=== PATIENT | female | born 1990 | race Caucasian/White ===

== ENCOUNTER 2023-09-19 05:13 | Observation (INO) | payer OTHER ==
--- NOTE | 2023-09-19 05:42 | ERPHSYRPT ---
- History of Present Illness Source: patient Exam Limitations: no limitations Patient Subjective Stated Complaint: pt states that at around noon on Wednesday she started having bilateral upper abdominal pain that she describes as constant, sharp, nonradiating, rated 8/10 scale that was accompanied by nausea. she reports that she has vomited 3-4 times since that time and each time it looked like dark brown liquid. Triage Nursing Assessment: pt brought to room 9 via wheelchair after ambulating independently with slow steady gait to scale for weight acquisition and to ba throom to provide urine sample. pt is alert and oriented times three, is able to speak in complete sentences, able to move all extremities, and with resp even and unlabored. pt is noted to have very flat affect and with delay prior to answering any questions in very quiet voice. minimal eye contact made by patient and she frequently looks to her fiance who is in the room. abdominal soft, obese, nontender to palpation, nonradiating, with positive bowel sounds in all quadrants. last BM was Wednesday morning, denies blood in vomit or stool. denies cp, sob, difficulty breathing, lightheadedness, dizziness, change in appetite, difficulty with urination or bowel elimination. reports last menstrual cycle was beginning of Aug and she states that she is unsure whether she is at this time. Timing/Duration: yesterday Severity: moderate Modifying Factors: Improves With: nothing Associated Symptoms: nausea, vomiting, abdominal pain (epigastric), No fever Hx Tetanus, Diphtheria Vaccination/Date Given: Yes Hx Influenza Vaccination/Date Given: No Hx Pneumococcal Vaccination/Date Given: No Immunizations Up to Date: Yes <ZEFERINO LONG - Last Filed: 09/19/23 06:54> <PRISCILA WEISS - Last Filed: 09/19/23 08:10> - History of Present Illness Time Seen by Provider: 09/19/23 05:41 Physician History: The patient presents with abdominal pain that began on Wednesday. They describe the pain as sharp and report that it sometimes moves. The patient has previously experienced pain on their right side, but this current episode is localized in a different area. No surgeries have been performed on the patient's abdomen. Since the onset of pain, the patient has not experienced any nausea or vomiting. They have been able to eat and drink, although they mention difficulty with consuming water. The patient denies having any fevers or recent illnesses. They are not currently and have not been taking any medications for the pain. (ZEFERINO LONG) Allergies/Adverse Reactions: No Known Drug Allergies Allergy (Verified 09/19/23 05:22) Home Medications: No Reportable Medications [No Reported Medications] 09/19/23 [History] Travel Risk - International Travel Have you traveled outside of the country in past 3 weeks: No - Coronavirus Screening Are you exhibiting any of the following symptoms?: No Close contact with a COVID-19 positive Pt in past 14-21 Days: No - Vaccine Status Have you recieved a Covid-19 vaccination: No <ZEFERINO LONG - Last Filed: 09/19/23 06:54> - Review of Systems All Other Systems: Reviewed and Negative (As per HPI) <ZEFERINO LONG - Last Filed: 09/19/23 06:54> - Past Medical History Pertinent Past Medical History: No Neurological History: No Pertinent History ENT History: No Pertinent History Cardiac History: No Pertinent History Respiratory History: No Pertinent History Endocrine Medical History: No Pertinent History Musculoskeletal History: No Pertinent History GI Medical History: No Pertinent History History: No Pertinent History Psycho-Social History: No Pertinent History Female Reproductive Disorders: No Pertinent History Other Medical History: blood transfusion for heavy menstruation - Past Surgical History Past Surgical History: No Neuro Surgical History: No Pertinent History Cardiac: No Pertinent History Respiratory: No Pertinent History Gastrointestinal: No Pertinent History Genitourinary: No Pertinent History Musculoskeletal: No Pertinent History Female Surgical History: No Pertinent History - Social History Smoking Status: Never smoker Exposure to second hand smoke: No Drug Use: none Patient Lives Alone: No - Female History Hx Last Menstrual Period: 08/01/23 Hx Now: No (unsure if ) <ZEFERINO LONG - Last Filed: 09/19/23 06:54> - Physical Exam General Appearance: no apparent distress Eye Exam: eyes nml inspection Ears, Nose, Throat Exam: normal ENT inspection Neck Exam: supple, full range of motion Respiratory Exam: normal breath sounds, lungs clear, airway intact, No respiratory distress Cardiovascular Exam: normal heart sounds, tachycardia, capillary refill <2 sec, No edema Gastrointestinal/Abdomen Exam: soft, normal bowel sounds, tenderness (epigastric ), No distention, No mass, No guarding, No rebound Back Exam: normal range of motion, No CVA tenderness Extremity Exam: No normal inspection, No swelling, No tenderness Neurologic Exam: alert, oriented x 3, cooperative Skin Exam: normal color, warm, dry, No rash SpO2 Interpretation: normal SpO2: 96 O2 Delivery: Room Air <ZEFERINO LONG - Last Filed: 09/19/23 06:54> - Nursing Vital Signs Nursing Vital Signs: Initial Vital Signs Temperature 97.0 F 09/19/23 05:23 Pulse Rate 116 H 09/19/23 05:23 Respiratory Rate 18 09/19/23 05:23 Blood Pressure 145/96 09/19/23 05:23 O2 Sat by Pulse Oximetry 95 09/19/23 05:23 Pain Scale Pain Intensity 0 - Course Nursing assessment & vital signs reviewed: Yes <ZEFERINO LONG - Last Filed: 09/19/23 06:54> Ordered Tests: Active Orders 24 hr Category Date Time Status ABDOMEN AND PELVIS W/0 CONTRAS [CT] Stat Exams 09/19/23 06:39 Completed ABG [ARTERIAL BLOOD GASES] Stat Lab 09/19/23 11:30 Ordered BMP Stat Lab 09/19/23 11:30 Ordered CBC W DIFF Stat Lab 09/19/23 06:07 Completed CMP Stat Lab 09/19/23 06:07 Completed HCG, Quantitative (Inhouse) Stat Lab 09/19/23 06:07 Completed LIPASE Stat Lab 09/19/23 06:07 Completed MAGNESIUM Stat Lab 09/19/23 06:50 Completed PHOSPHOROUS Stat Lab 09/19/23 06:50 Completed POCT GLUCOSE Stat Lab 09/19/23 07:25 Completed TSH, 3RD Generation Stat Lab 09/19/23 06:30 Completed UA W/RFX UR CULTURE Stat Lab 09/19/23 05:23 Completed VENOUS BLOOD GAS Stat Lab 09/19/23 06:36 Ordered Transfer Order Routine Transfer 09/19/23 Ordered Medication Summary Generic Name Dose Route Start Last Admin Trade Name Freq PRN Reason Stop Dose Admin Potassium Chloride 20 meq in 100 mls @ 50 mls/hr 09/19/23 07:00 09/19/23 07:27 Potassium Chloride 20 Meq In Water 100ml IV 09/19/23 10:59 50 mls/hr Q2H DORIS Administration INSULIN REGULAR IN 0.9 % NACL 100 unit in 100 mls @ 8.3 mls/hr 09/19/23 06:46 09/19/23 07:30 Myxredlin 100 Unit/100 Ml Bag IV 10/19/23 06:45 0.1 unit/kg/hr .Q12H3M PRN 8.3 mls/hr HYPERGLYCEMIA Administration Protocol 0.1 UNIT/KG/HR Sodium Chloride 250 mls @ 30 mls/hr 09/19/23 07:30 09/19/23 07:31 Sodium Chloride 0.9% 250 Ml IV 09/19/23 15:49 30 mls/hr .Q8H20M DORIS Administration Sodium Chloride 1,000 mls @ 999 mls/hr 09/19/23 08:02 Sodium Chloride 0.9% 1000 Ml IV 09/19/23 09:02 .Q1H1M STA Discontinued Medications Generic Name Dose Route Start Last Admin Trade Name Freq PRN Reason Stop Dose Admin Lactated Ringer's 1,000 mls @ 999 mls/hr 09/19/23 06:43 09/19/23 07:26 Lactated Ringers IV 09/19/23 07:43 999 mls/hr .Q1H1M ONE Administration Lactated Ringer's Confirm 09/19/23 07:21 Lactated Ringers Administered 09/19/23 07:22 Dose 1,000 mls @ ud IV .STK-MED ONE Sodium Chloride Confirm 09/19/23 08:03 Sodium Chloride 0.9% 1000 Ml Administered 09/19/23 08:04 Dose 1,000 mls @ ud .ROUTE .STK-MED ONE Ondansetron HCl 4 mg 09/19/23 05:47 09/19/23 05:55 Zofran 4 Mg/Udtablet Orally Disintegrating PO 09/19/23 05:48 4 mg STAT ONE Administration Ondansetron HCl Confirm 09/19/23 05:53 Zofran 4 Mg/Udtablet Orally Disintegrating Administered 09/19/23 05:54 Dose 4 mg .ROUTE .STK-MED ONE Pantoprazole Sodium 40 mg 09/19/23 05:47 09/19/23 05:55 Protonix (Pantoprazole) 40 Mg Tablet PO 09/19/23 05:48 40 mg STAT ONE Administration Pantoprazole Sodium Confirm 09/19/23 05:53 Protonix (Pantoprazole) 40 Mg Tablet Administered 09/19/23 05:54 Dose 40 mg .ROUTE .[facility]-MED ONE Lab/Rad Data: Laboratory Result Diagrams 09/19/23 06:07 09/19/23 06:07 Laboratory Results 09/19/23 09/19/23 09/19/23 Range/Units 07:25 06:50 06:50 WBC (4.0-10.5) x10^3/uL RBC (4.1-5.4) x10^6/uL Hgb (12.0-16.0) g/dL Hct (35-47) % MCV (78-100) fL MCH (26-32) pg MCHC (32-36) g/dL RDW (11.5-14.0) % Plt Count (150-450) x10^3/uL MPV (7.5-11.0) fL Gran % (36.0-66.0) % Immature Gran % (Auto) (0.00-0.4) % Nucleat RBC Rel Count (0.00-0.1) % Eos # (Auto) (0-0.5) x10^3/uL Immature Gran # (Auto) (0.00-0.03) x10^3u/L Absolute Lymphs (auto) (1.0-4.6) x10^3/uL Absolute Monos (auto) (0.0-1.3) x10^3/uL Absolute Nucleated RBC (0.00-0.01) x10^3u/L Lymphocytes % (24.0-44.0) % Monocytes % (0.0-12.0) % Eosinophils % (0.00-5.0) % Basophils % (0.0-0.4) % Absolute Granulocytes (1.4-6.9) x10^3/uL Basophils # (0-0.4) x10^3/uL Sodium (137-145) mmol/L Potassium (3.5-5.1) mmol/L Chloride (98-107) mmol/L Carbon Dioxide (22-30) mmol/L Anion Gap (5-15) MEQ/L BUN (7-17) mg/dL Creatinine (0.52-1.04) mg/dL Estimated GFR ML/MIN Glucose (74-106) mg/dL POC Glucometer 323 H (74 to 106) mg/dL Hemoglobin A1c 10.28 H (4.5-6.0) % Calcium (8.4-10.2) mg/dL Phosphorus 3.8 (2.5-4.5) mg/dL Magnesium 1.5 L (1.6-2.3) mg/dL Total Bilirubin (0.2-1.3) mg/dL AST (14-36) U/L ALT (0-35) U/L Alkaline Phosphatase (38-126) U/L Serum Total Protein (6.3-8.2) g/dL Albumin (3.5-5.0) g/dL Lipase (23-300) U/L TSH 3rd Generation (0.47-4.68) mIU/L Beta HCG, Quant mIU/ml Urine Color (Yellow) Urine Appearance (Clear) Urine pH (4.6-8.0) Ur Specific [place] (1.005-1.030) Urine Protein (Negative) Urine Glucose (UA) (Negative) mg/dL Urine Ketones (Negative) Urine Blood (Negative) Urine Nitrite (Negative) Urine Bilirubin (Negative) Urine Urobilinogen (0.2) mg/dL Ur Leukocyte Esterase (Negative) U Hyaline Cast (Auto) (0-2) /LPF Urine Microscopic RBC (0-5) /HPF Urine Microscopic WBC (0-5) /HPF Ur Epithelial Cells (None Seen) /HPF Urine Bacteria (None Seen) /HPF Urine Culture Reflexed (NO) 09/19/23 09/19/23 09/19/23 Range/Units 06:30 06:07 06:07 WBC (4.0-10.5) x10^3/uL RBC (4.1-5.4) x10^6/uL Hgb (12.0-16.0) g/dL Hct (35-47) % MCV (78-100) fL MCH (26-32) pg MCHC (32-36) g/dL RDW (11.5-14.0) % Plt Count (150-450) x10^3/uL MPV (7.5-11.0) fL Gran % (36.0-66.0) % Immature Gran % (Auto) (0.00-0.4) % Nucleat RBC Rel Count (0.00-0.1) % Eos # (Auto) (0-0.5) x10^3/uL Immature Gran # (Auto) (0.00-0.03) x10^3u/L Absolute Lymphs (auto) (1.0-4.6) x10^3/uL Absolute Monos (auto) (0.0-1.3) x10^3/uL Absolute Nucleated RBC (0.00-0.01) x10^3u/L Lymphocytes % (24.0-44.0) % Monocytes % (0.0-12.0) % Eosinophils % (0.00-5.0) % Basophils % (0.0-0.4) % Absolute Granulocytes (1.4-6.9) x10^3/uL Basophils # (0-0.4) x10^3/uL Sodium 136 L (137-145) mmol/L Potassium 4.1 (3.5-5.1) mmol/L Chloride 102 (98-107) mmol/L Carbon Dioxide 13 L* (22-30) mmol/L Anion Gap 24.4 H (5-15) MEQ/L BUN 9 (7-17) mg/dL Creatinine 0.43 L (0.52-1.04) mg/dL Estimated GFR 134.1 ML/MIN Glucose 372 H (74-106) mg/dL POC Glucometer (74 to 106) mg/dL Hemoglobin A1c (4.5-6.0) % Calcium 8.7 (8.4-10.2) mg/dL Phosphorus (2.5-4.5) mg/dL Magnesium (1.6-2.3) mg/dL Total Bilirubin 1.80 H (0.2-1.3) mg/dL AST 43 H (14-36) U/L ALT 56 H (0-35) U/L Alkaline Phosphatase 75 (38-126) U/L Serum Total Protein 8.6 H (6.3-8.2) g/dL Albumin 4.2 (3.5-5.0) g/dL Lipase 495 H (23-300) U/L TSH 3rd Generation 0.803 (0.47-4.68) mIU/L Beta HCG, Quant < 2.39 mIU/ml Urine Color (Yellow) Urine Appearance (Clear) Urine pH (4.6-8.0) Ur Specific [place] (1.005-1.030) Urine Protein (Negative) Urine Glucose (UA) (Negative) mg/dL Urine Ketones (Negative) Urine Blood (Negative) Urine Nitrite (Negative) Urine Bilirubin (Negative) Urine Urobilinogen (0.2) mg/dL Ur Leukocyte Esterase (Negative) U Hyaline Cast (Auto) (0-2) /LPF Urine Microscopic RBC (0-5) /HPF Urine Microscopic WBC (0-5) /HPF Ur Epithelial Cells (None Seen) /HPF Urine Bacteria (None Seen) /HPF Urine Culture Reflexed (NO) 09/19/23 09/19/23 Range/Units 06:07 05:23 WBC 13.9 H (4.0-10.5) x10^3/uL RBC 5.13 (4.1-5.4) x10^6/uL Hgb 16.3 H (12.0-16.0) g/dL Hct 43.1 (35-47) % MCV 84.0 (78-100) fL MCH 31.8 (26-32) pg MCHC 37.8 H (32-36) g/dL RDW 12.7 (11.5-14.0) % Plt Count 246 (150-450) x10^3/uL MPV 11.2 H (7.5-11.0) fL Gran % 87.8 H (36.0-66.0) % Immature Gran % (Auto) 0.6 H (0.00-0.4) % Nucleat RBC Rel Count 0.0 (0.00-0.1) % Eos # (Auto) 0.01 (0-0.5) x10^3/uL Immature Gran # (Auto) 0.08 H (0.00-0.03) x10^3u/L Absolute Lymphs (auto) 0.78 L (1.0-4.6) x10^3/uL Absolute Monos (auto) 0.78 (0.0-1.3) x10^3/uL Absolute Nucleated RBC 0.00 (0.00-0.01) x10^3u/L Lymphocytes % 5.6 L (24.0-44.0) % Monocytes % 5.6 (0.0-12.0) % Eosinophils % 0.1 (0.00-5.0) % Basophils % 0.3 (0.0-0.4) % Absolute Granulocytes 12.24 H (1.4-6.9) x10^3/uL Basophils # 0.04 (0-0.4) x10^3/uL Sodium (137-145) mmol/L Potassium (3.5-5.1) mmol/L Chloride (98-107) mmol/L Carbon Dioxide (22-30) mmol/L Anion Gap (5-15) MEQ/L BUN (7-17) mg/dL Creatinine (0.52-1.04) mg/dL Estimated GFR ML/MIN Glucose (74-106) mg/dL POC Glucometer (74 to 106) mg/dL Hemoglobin A1c (4.5-6.0) % Calcium (8.4-10.2) mg/dL Phosphorus (2.5-4.5) mg/dL Magnesium (1.6-2.3) mg/dL Total Bilirubin (0.2-1.3) mg/dL AST (14-36) U/L ALT (0-35) U/L Alkaline Phosphatase (38-126) U/L Serum Total Protein (6.3-8.2) g/dL Albumin (3.5-5.0) g/dL Lipase (23-300) U/L TSH 3rd Generation (0.47-4.68) mIU/L Beta HCG, Quant mIU/ml Urine Color Yellow (Yellow) Urine Appearance Clear (Clear) Urine pH 5.0 (4.6-8.0) Ur Specific [place] >=1.030 A (1.005-1.030) Urine Protein 30 (Negative) Urine Glucose (UA) >=1000 A (Negative) mg/dL Urine Ketones >=160 A (Negative) Urine Blood Negative (Negative) Urine Nitrite Negative (Negative) Urine Bilirubin Negative (Negative) Urine Urobilinogen 0.2 (0.2) mg/dL Ur Leukocyte Esterase Negative (Negative) U Hyaline Cast (Auto) NONE SEEN (0-2) /LPF Urine Microscopic RBC 0-2 (0-5) /HPF Urine Microscopic WBC 0-2 (0-5) /HPF Ur Epithelial Cells None Seen (None Seen) /HPF Urine Bacteria Rare A (None Seen) /HPF Urine Culture Reflexed NO (NO) <ZEFERINO LONG - Last Filed: 09/19/23 06:54> - Progress Progress: improved, pain not gone completely Discussed with DrPam: Sandra Will see patient in: hospital (observation) Counseled pt/family regarding: lab results, diagnosis, rad results <PRISCILA WEISS - Last Filed: 09/19/23 08:10> - Progress Progress Note: Differential diagnosis includes: GERD, PUD, pancreatitis, , cholecystitis. Abdominal exam without peritoneal signs. No evidence of acute abdomen at this time. Well appearing. Low suspicion for acute hepatobiliary disease (includng acute cholecystitis), acute pancreatitis, PUD (including perforation), acute infectious processes (pneumonia, hepatitis, pyelonephritis), acute appendicitis, vascular catastrophe, bowel obstruction or viscus perforation. Presentation not consistent with other acute, emergent causes of abdominal pain at this time. Plan: labs, UA, HCG, nausea/pain control, serial reassessment 09/19/23 06:54 UA showed >1.03 specific gravity, >1000 glucose, >160 ketones. WBC 13.9, Na 136, K 4.1, HCO3 13, glucose 372, total bilirubin 1.8, AST/ALT 43/56, lipase 495, anion gap 24.4, HCG neg. Patient has no previous hx of diabetes that was reported however she is in DKA. LR bolus, 40meq KCl given. Insulin gtt started at 0.1u/kg. 09/19/23 07:08 A1c 10.28, Mg 1.5. Will order CT abd/pelvis to evaluate for choledocolithiasis due to elevated bilirubin, LFTs and lipase since US not available. Transfer care to Dr. Weiss at 0700. (ZEFERINO LONG) 09/19/23 08:08 Patient is checked out to me at shift change from Dr. Long with pending CT abdomen pelvis. Patient presented with abdominal pain nausea vomiting. She is given symptomatic treatment along with fluids. During my evaluation she is feeling much better but still have tenderness in the epigastric area. No right upper quadrant tenderness. She is on insulin drip. I have given another bolus of fluid. CT abdomen pelvis showed acute pancreatitis with significant edema of head and body of pancreas but no CBD dilatation/stones are any gallstones. Do not know the exact cause of her pancreatitis. I have discussed the results of CT and lab work with patient and plan of admission which she agrees. I have discussed with Dr. Blanchard hospitalist on-call, reviewed history, heparin patient is accepted for admission to ICU. (PRISCILA WEISS) <ZEFERINO LONG - Last Filed: 09/19/23 06:54> - Departure Departure Disposition: Observation Critical Care Time: No <PRISCILA WEISS - Last Filed: 09/19/23 08:10> - Departure Clinical Impression: DKA (diabetic ketoacidosis), Acute pancreatitis Condition: Stable Referrals: DOCTOR,NO FAMILY [Primary Care Provider] - Follow up/PCP as directed
[2023-09-19] MEDS ORDERED: Protonix 40MG Tablet PO ONE (05:47)
[2023-09-19] MEDS ORDERED: ZOFRAN ODT 4 MG PO ONE (05:47)
[2023-09-19 05:48] LABS: Appearance Clear (Clear); Bacteria Rare /HPF (None Seen); Bilirubin Negative (Negative); Blood Negative (Negative); Epithelial Cells None Seen /HPF (None Seen); Glucose, Urine >=1000 mg/dL (Negative); Hyaline Casts NONE SEEN /LPF (0-2); Ketones >=160 (Negative); Leukocyte Esterase Negative (Negative); Nitrite Negative (Negative); Protein,Urine Dip 30 (Negative); RBC 0-2 /HPF (0-5); Specific Gravity >=1.030 (1.005-1.030); Urobilinogen 0.2 mg/dL (0.2); WBC 0-2 /HPF (0-5)
[2023-09-19 05:49] LABS: ADD URINE CULTURE? NO (NO)
[2023-09-19] MEDS ORDERED: ZOFRAN ODT 4 MG ONE (05:53)
[2023-09-19] MEDS ORDERED: Protonix 40MG Tablet ONE (05:53)
[2023-09-19 06:28] LABS: Absolute Neutrophil Ct (ANC) 12.24 x10^3/uL (1.4-6.9); BASOPHIL % 0.3 % (0.0-0.4); Basophil (Absolute #) 0.04 x10^3/uL (0-0.4); Eosinophil % 0.1 % (0.00-5.0); Eosinophil (Absolute #) 0.01 x10^3/uL (0-0.5); Hematocrit 43.1 % (35-47); Hemoglobin 16.3 g/dL (12.0-16.0); IMMATURE GRAN # 0.08 x10^3u/L (0.00-0.03); IMMATURE GRAN % 0.6 % (0.00-0.4); Lymphocyte (Absolute #) 0.78 x10^3/uL (1.0-4.6); Lymphocytes % 5.6 % (24.0-44.0); Mean Corpuscular Hemoglobin 31.8 pg (26-32); Mean Corpuscular Hgb Concent. 37.8 g/dL (32-36); Mean Platelet Volume 11.2 fL (7.5-11.0); Monocyte (Absolute #) 0.78 x10^3/uL (0.0-1.3); Monocytes % 5.6 % (0.0-12.0); Neutrophil % 87.8 % (36.0-66.0); Platelet Count 246 x10^3/uL (150-450); Red Blood Count 5.13 x10^6/uL (4.1-5.4); Red Cell Distribution Width 12.7 % (11.5-14.0); White Blood Count 13.9 x10^3/uL (4.0-10.5)
[2023-09-19 06:32] LABS: ALBUMIN 4.2 g/dL (3.5-5.0); ANION GAP 24.4 MEQ/L (5-15); BILIRUBIN,TOTAL 1.8 mg/dL (0.2-1.3); Calcium 8.7 mg/dL (8.4-10.2); Creatinine 1 0.43 mg/dL (0.52-1.04); EST GLOMERULAR FILTRATION RATE 134.1 ML/MIN; Potassium 4.1 mmol/L (3.5-5.1); Total Protein 8.6 g/dL (6.3-8.2)
[2023-09-19] MEDS ORDERED: Lactated Ringers 1,000 ML IV ONE ×2 (06:43→07:21)
[2023-09-19 06:57] LABS: MAGNESIUM 1.5 mg/dL (1.6-2.3); PHOSPHOROUS 3.8 mg/dL (2.5-4.5)
[2023-09-19] MEDS: POTASSIUM CHLORIDE 20 mEq IN WATER 100ML 20 MEQ/100 ML BAG IV SCH ×2 (07:27→09:32)
[2023-09-19] MEDS ORDERED: Sodium Chloride 0.9% 250 ML 250 ML IV SCH (07:30)
[2023-09-19] MEDS: MYXREDLIN 100 UNIT/100 ML BAG 100 UNIT/100 ML PLAST..BAG IV PRN ×2 (07:30→17:26)
--- NOTE | 2023-09-19 07:44 | XRAY ---
CLINICAL HISTORY:abd pain COMPARISON:None TECHNIQUE:Multislice axial CT of abdomen and pelvis was performed with sagittal and coronal reconstruction without IV contrast. FINDINGS: The visualized lung: No significant abnormality. Hepatomegaly 18 cm with moderate fatty liver density. No focal lesion. Gallbladder fossa unremarkable. There is no intrahepatic or extrahepatic bile duct dilation. Pancreas head and proximal body segment significant swelling with surrounding fat stranding/edema is noted. Pancreas tail is preserved. No encapsulated fluid collection is noted. No associating obvious pancreatic duct dilation or biliary dilation. Spleen normal in size. No focal lesion.Small spleule is seen. Adrenal glands are unremarkable. The kidneys normal in size with no masses, stone or hydronephrosis. No evidence of abdominal aorta aneurysm. Intestinal loops without evidence of obstruction. No intra-abdominal free fluid or mass. Bladder unremarkable. Incidental T12 mild anterior wedging possibly chronic is noted. Please correlate clinically. IMPRESSION: 1. Evidence of pancreatitis with significant edema and swelling as described. 2. T12 anterior wedging. 3. Hepatic steatosis and hepatomegaly. [facility] was called at [phone] at 06:36 AM SECURITY SYSTEM ENGINEER, 09/19/[address] Mae was informed about Significant Findings. Electronically Signed by: Oralia Izquierdo MD. (09/19/2023 06:41:57 SEC[employer]ITY SYSTEM ENGINEER)
[2023-09-19] MEDS ORDERED: Sodium Chloride 0.9% 1000 ML 1,000 ML IV STA (08:02)
[2023-09-19] MEDS ORDERED: Sodium Chloride 0.9% 1000 ML 1,000 ML ONE (08:03)
[2023-09-19 08:08] LABS: A-aADO2 38; ABG HEMOGLOBIN 15.3; ABG POTASSIUM 3.9 (3.5-5.1); ARTERIAL BLD GAS O2 SATURATION 96.1 % (95-100); ARTERIAL BLOOD GAS BASE EXCESS -3.2 (-2.0-2.0); ARTERIAL BLOOD GAS FIO2 21 %; ARTERIAL BLOOD GAS PCO2 31 mmHg (35-45); ARTERIAL BLOOD GAS PO2 73 mmHg (75-100); ARTERIAL BLOOD GAS pH 7.42 (7.35-7.45); CARBOXYHEMOGLOBIN 1.7 % THgb (0.0-6.9); HCO3- 20.1 (22-28); HGB O2 SAT 93.5 g/dF (94-100); paO2 pAO1 0.66
--- NOTE | 2023-09-19 09:23 | PCM.HP ---
History of Present Illness - Chief Complaint Chief Complaint: DKA, acute pancreatitis Date: 09/19/23 History of Present Illness: is a 32 year old female with a pmhx of DM II who presented to ED 09/19/23 with complaints of 8/10 diffuse intermittent sharp/cramping abdominal pain. She reports that the onset of her pain was yesterday with worsening severity and associated N/V. She is no longer having N/V today. She states eating aggravated pain, and pain meds relieved pain, endorses 5/10 pain during interview. Reports no prior episodes of similar pain. Patient states that she was diagnosed with DM II in 2020 and was prescribed glargine/lispro/metformin but she stopped taking these medications shortly after diagnosis about 2 years ago. She does not follow with a PCP. Denies recent sick contacts. Denies fever,cough, sob, cp, [place], dizziness, N/V/D. In ED, upon arrival patient was afebrile, tachycardic, and hypertensive. CT findings noting significant edema of the head/body of pancreas without CBD dilatation/stones. Lab findings significant for WBC at 13.9, hgb at 16.3, sodium 136, co2 at 13, GAP 24.4, glucose 325, a1c 10.28, Tbili 1.8, mag 1.5, AST 43, ALT 56, lipase at 495, and urine with >1000 glucose and ?160 ketones. Patient received 1 L LR and 1 L NS in ED, zofran, and protonix. - Review of Systems Constitutional: No Symptoms Eyes: No Symptoms Ears, Nose, & Throat: No Symptoms Respiratory: No Symptoms Cardiac: No Symptoms Abdominal/Gastrointestinal: Abdominal Pain (5/10 during interview) Genitourinary Symptoms: No Symptoms Musculoskeletal: No Symptoms Skin: No Symptoms Neurological: No Symptoms Psychological: No Symptoms Endocrine: No Symptoms Hematologic/Lymphatic: No Symptoms, Easy Bruising Immunological/Allergic: No Symptoms Medications & Allergies Home Medications: Home Medication List No Reportable Medications [No Reported Medications] 09/19/23 [History Confirmed 09/19/23] Allergies/Adverse Reactions: Allergies Allergy/AdvReac Type Severity Reaction Status Date / Time No Known Drug Allergies Allergy Verified 09/19/23 05:22 - Past Medical History Past Medical History: No Neurological History: No Pertinent History ENT History: No Pertinent History Cardiac History: No Pertinent History Respiratory History: No Pertinent History Endocrine Medical History: Diabetes Type II (2020 ) Musculoskelatal History: No Pertinent History GI Medical History: No Pertinent History History: No Pertinent History Pyscho-Social History: No Pertinent History Reproductive Disorders: No Pertinent History Comment: blood transfusion for heavy menstruation - Female History Hx Last Menstrual Period: 08/01/23 Are you now?: No (unsure if ) - Past Surgical History Past Surgical History: No Neuro Surgical History: No Pertinent History Cardiac History: No Pertinent History Respiratory Surgery: No Pertinent History GI Surgical History: No Pertinent History Genitourinary Surgical Hx: No Pertinent History Musculskeletal Surgical Hx: No Pertinent History Female Surgical History: No Pertinent History - Social History Smoking Status: Never smoker Exposure to second hand smoke: No Alcohol: None Drug Use: none - Physical Exam Vital Signs: Vital Signs - 24 hr Temp Pulse Resp BP BP Pulse Ox 09/19/23 08:15 103 H 33 H 118/73 96 09/19/23 08:00 103 H 24 113/70 94 L 09/19/23 07:30 104 H 18 115/86 95 09/19/23 07:09 96 09/19/23 07:00 149/92 09/19/23 06:30 107 H 20 141/91 92 L 09/19/23 06:16 102 H 18 140/98 96 09/19/23 06:00 98 H 16 127/85 94 L 09/19/23 05:36 102 H 18 131/86 96 09/19/23 05:23 97.0 F 116 H 18 145/96 95 General Appearance: no apparent distress Neurologic Exam: alert, oriented x 3, cooperative Eye Exam: PERRL/EOMI Ears, Nose, Throat Exam: normal ENT inspection Neck Exam: normal inspection Respiratory Exam: normal breath sounds, lungs clear Cardiovascular Exam: regular rate/rhythm, normal heart sounds Gastrointestinal/Abdomen Exam: soft, normal bowel sounds, tenderness Pelvic Exam: not done Back Exam: normal inspection Extremity Exam: normal inspection Skin Exam: normal color Results - Labs Lab/Micro Results: Lab Results-Last 24 Hours 09/19/23 09/19/23 09/19/23 Range/Units 05:23 06:07 06:07 WBC 13.9 H (4.0-10.5) x10^3/uL RBC 5.13 (4.1-5.4) x10^6/uL Hgb 16.3 H (12.0-16.0) g/dL Hct 43.1 (35-47) % MCV 84.0 (78-100) fL MCH 31.8 (26-32) pg MCHC 37.8 H (32-36) g/dL RDW 12.7 (11.5-14.0) % Plt Count 246 (150-450) x10^3/uL MPV 11.2 H (7.5-11.0) fL Gran % 87.8 H (36.0-66.0) % Immature Gran % (Auto) 0.6 H (0.00-0.4) % Nucleat RBC Rel Count 0.0 (0.00-0.1) % Eos # (Auto) 0.01 (0-0.5) x10^3/uL Immature Gran # (Auto) 0.08 H (0.00-0.03) x10^3u/L Absolute Lymphs (auto) 0.78 L (1.0-4.6) x10^3/uL Absolute Monos (auto) 0.78 (0.0-1.3) x10^3/uL Absolute Nucleated RBC 0.00 (0.00-0.01) x10^3u/L Lymphocytes % 5.6 L (24.0-44.0) % Monocytes % 5.6 (0.0-12.0) % Eosinophils % 0.1 (0.00-5.0) % Basophils % 0.3 (0.0-0.4) % Absolute Granulocytes 12.24 H (1.4-6.9) x10^3/uL Basophils # 0.04 (0-0.4) x10^3/uL Puncture Site pCO2 (35-45) mmHg pO2 (75-100) mmHg Base Excess (-2.0-2.0) O2 Saturation (94-100) g/dF ABG pH (7.35-7.45) ABG HCO3 (22-28) ABG O2 Sat (Measured) (95-100) % Donato Test A-a Gradient a/A Ratio Hemoglobin Carboxyhemoglobin (0.0-6.9) % THgb Methemoglobin (1.4-1.5) % Temperature C POC O2 Flow Rate % Sodium 136 L (137-145) mmol/L Potassium 4.1 (3.5-5.1) mmol/L Chloride 102 (98-107) mmol/L Carbon Dioxide 13 L* (22-30) mmol/L Anion Gap 24.4 H (5-15) MEQ/L BUN 9 (7-17) mg/dL Creatinine 0.43 L (0.52-1.04) mg/dL Estimated GFR 134.1 ML/MIN Glucose 372 H (74-106) mg/dL POC Glucometer (74 to 106) mg/dL Hemoglobin A1c (4.5-6.0) % Calcium 8.7 (8.4-10.2) mg/dL Phosphorus (2.5-4.5) mg/dL Magnesium (1.6-2.3) mg/dL Total Bilirubin 1.80 H (0.2-1.3) mg/dL AST 43 H (14-36) U/L ALT 56 H (0-35) U/L Alkaline Phosphatase 75 (38-126) U/L Serum Total Protein 8.6 H (6.3-8.2) g/dL Albumin 4.2 (3.5-5.0) g/dL Lipase 495 H (23-300) U/L TSH 3rd Generation (0.47-4.68) mIU/L Beta HCG, Quant mIU/ml Urine Color Yellow (Yellow) Urine Appearance Clear (Clear) Urine pH 5.0 (4.6-8.0) Ur Specific [place] >=1.030 A (1.005-1.030) Urine Protein 30 (Negative) Urine Glucose (UA) >=1000 A (Negative) mg/dL Urine Ketones >=160 A (Negative) Urine Blood Negative (Negative) Urine Nitrite Negative (Negative) Urine Bilirubin Negative (Negative) Urine Urobilinogen 0.2 (0.2) mg/dL Ur Leukocyte Esterase Negative (Negative) U Hyaline Cast (Auto) NONE SEEN (0-2) /LPF Urine Microscopic RBC 0-2 (0-5) /HPF Urine Microscopic WBC 0-2 (0-5) /HPF Ur Epithelial Cells None Seen (None Seen) /HPF Urine Bacteria Rare A (None Seen) /HPF Urine Culture Reflexed NO (NO) 11/09/19/23 09/19/23 Range/Units 06:07 06:30 06:50 WBC (4.0-10.5) x10^3/uL RBC (4.1-5.4) x10^6/uL Hgb (12.0-16.0) g/dL Hct (35-47) % MCV (78-100) fL MCH (26-32) pg MCHC (32-36) g/dL RDW (11.5-14.0) % Plt Count (150-450) x10^3/uL MPV (7.5-11.0) fL Gran % (36.0-66.0) % Immature Gran % (Auto) (0.00-0.4) % Nucleat RBC Rel Count (0.00-0.1) % Eos # (Auto) (0-0.5) x10^3/uL Immature Gran # (Auto) (0.00-0.03) x10^3u/L Absolute Lymphs (auto) (1.0-4.6) x10^3/uL Absolute Monos (auto) (0.0-1.3) x10^3/uL Absolute Nucleated RBC (0.00-0.01) x10^3u/L Lymphocytes % (24.0-44.0) % Monocytes % (0.0-12.0) % Eosinophils % (0.00-5.0) % Basophils % (0.0-0.4) % Absolute Granulocytes (1.4-6.9) x10^3/uL Basophils # (0-0.4) x10^3/uL Puncture Site pCO2 (35-45) mmHg pO2 (75-100) mmHg Base Excess (-2.0-2.0) O2 Saturation (94-100) g/dF ABG pH (7.35-7.45) ABG HCO3 (22-28) ABG O2 Sat (Measured) (95-100) % Donato Test A-a Gradient a/A Ratio Hemoglobin Carboxyhemoglobin (0.0-6.9) % THgb Methemoglobin (1.4-1.5) % Temperature C POC O2 Flow Rate % Sodium (137-145) mmol/L Potassium (3.5-5.1) mmol/L Chloride (98-107) mmol/L Carbon Dioxide (22-30) mmol/L Anion Gap (5-15) MEQ/L BUN (7-17) mg/dL Creatinine (0.52-1.04) mg/dL Estimated GFR ML/MIN Glucose (74-106) mg/dL POC Glucometer (74 to 106) mg/dL Hemoglobin A1c (4.5-6.0) % Calcium (8.4-10.2) mg/dL Phosphorus 3.8 (2.5-4.5) mg/dL Magnesium 1.5 L (1.6-2.3) mg/dL Total Bilirubin (0.2-1.3) mg/dL AST (14-36) U/L ALT (0-35) U/L Alkaline Phosphatase (38-126) U/L Serum Total Protein (6.3-8.2) g/dL Albumin (3.5-5.0) g/dL Lipase (23-300) U/L TSH 3rd Generation 0.803 (0.47-4.68) mIU/L Beta HCG, Quant < 2.39 mIU/ml Urine Color (Yellow) Urine Appearance (Clear) Urine pH (4.6-8.0) Ur Specific [place] (1.005-1.030) Urine Protein (Negative) Urine Glucose (UA) (Negative) mg/dL Urine Ketones (Negative) Urine Blood (Negative) Urine Nitrite (Negative) Urine Bilirubin (Negative) Urine Urobilinogen (0.2) mg/dL Ur Leukocyte Esterase (Negative) U Hyaline Cast (Auto) (0-2) /LPF Urine Microscopic RBC (0-5) /HPF Urine Microscopic WBC (0-5) /HPF Ur Epithelial Cells (None Seen) /HPF Urine Bacteria (None Seen) /HPF Urine Culture Reflexed (NO) 09/19/23 09/19/23 09/19/23 Range/Units 06:50 07:25 08:00 WBC (4.0-10.5) x10^3/uL RBC (4.1-5.4) x10^6/uL Hgb (12.0-16.0) g/dL Hct (35-47) % MCV (78-100) fL MCH (26-32) pg MCHC (32-36) g/dL RDW (11.5-14.0) % Plt Count (150-450) x10^3/uL MPV (7.5-11.0) fL Gran % (36.0-66.0) % Immature Gran % (Auto) (0.00-0.4) % Nucleat RBC Rel Count (0.00-0.1) % Eos # (Auto) (0-0.5) x10^3/uL Immature Gran # (Auto) (0.00-0.03) x10^3u/L Absolute Lymphs (auto) (1.0-4.6) x10^3/uL Absolute Monos (auto) (0.0-1.3) x10^3/uL Absolute Nucleated RBC (0.00-0.01) x10^3u/L Lymphocytes % (24.0-44.0) % Monocytes % (0.0-12.0) % Eosinophils % (0.00-5.0) % Basophils % (0.0-0.4) % Absolute Granulocytes (1.4-6.9) x10^3/uL Basophils # (0-0.4) x10^3/uL Puncture Site Pending pCO2 31 L (35-45) mmHg pO2 73 L (75-100) mmHg Base Excess -3.2 L (-2.0-2.0) O2 Saturation 93.5 L (94-100) g/dF ABG pH 7.42 (7.35-7.45) ABG HCO3 20.1 L (22-28) ABG O2 Sat (Measured) 96.1 (95-100) % Donato Test Pending A-a Gradient 38 a/A Ratio 0.66 Hemoglobin 15.3 Carboxyhemoglobin 1.7 (0.0-6.9) % THgb Methemoglobin 1.0 L (1.4-1.5) % Temperature 37.0 C POC O2 Flow Rate 21 % Sodium (137-145) mmol/L Potassium 3.9 (3.5-5.1) mmol/L Chloride (98-107) mmol/L Carbon Dioxide (22-30) mmol/L Anion Gap (5-15) MEQ/L BUN (7-17) mg/dL Creatinine (0.52-1.04) mg/dL Estimated GFR ML/MIN Glucose (74-106) mg/dL POC Glucometer 323 H (74 to 106) mg/dL Hemoglobin A1c 10.28 H (4.5-6.0) % Calcium (8.4-10.2) mg/dL Phosphorus (2.5-4.5) mg/dL Magnesium (1.6-2.3) mg/dL Total Bilirubin (0.2-1.3) mg/dL AST (14-36) U/L ALT (0-35) U/L Alkaline Phosphatase (38-126) U/L Serum Total Protein (6.3-8.2) g/dL Albumin (3.5-5.0) g/dL Lipase (23-300) U/L TSH 3rd Generation (0.47-4.68) mIU/L Beta HCG, Quant mIU/ml Urine Color (Yellow) Urine Appearance (Clear) Urine pH (4.6-8.0) Ur Specific [place] (1.005-1.030) Urine Protein (Negative) Urine Glucose (UA) (Negative) mg/dL Urine Ketones (Negative) Urine Blood (Negative) Urine Nitrite (Negative) Urine Bilirubin (Negative) Urine Urobilinogen (0.2) mg/dL Ur Leukocyte Esterase (Negative) U Hyaline Cast (Auto) (0-2) /LPF Urine Microscopic RBC (0-5) /HPF Urine Microscopic WBC (0-5) /HPF Ur Epithelial Cells (None Seen) /HPF Urine Bacteria (None Seen) /HPF Urine Culture Reflexed (NO) 09/19/23 Range/Units 08:31 WBC (4.0-10.5) x10^3/uL RBC (4.1-5.4) x10^6/uL Hgb (12.0-16.0) g/dL Hct (35-47) % MCV (78-100) fL MCH (26-32) pg MCHC (32-36) g/dL RDW (11.5-14.0) % Plt Count (150-450) x10^3/uL MPV (7.5-11.0) fL Gran % (36.0-66.0) % Immature Gran % (Auto) (0.00-0.4) % Nucleat RBC Rel Count (0.00-0.1) % Eos # (Auto) (0-0.5) x10^3/uL Immature Gran # (Auto) (0.00-0.03) x10^3u/L Absolute Lymphs (auto) (1.0-4.6) x10^3/uL Absolute Monos (auto) (0.0-1.3) x10^3/uL Absolute Nucleated RBC (0.00-0.01) x10^3u/L Lymphocytes % (24.0-44.0) % Monocytes % (0.0-12.0) % Eosinophils % (0.00-5.0) % Basophils % (0.0-0.4) % Absolute Granulocytes (1.4-6.9) x10^3/uL Basophils # (0-0.4) x10^3/uL Puncture Site pCO2 (35-45) mmHg pO2 (75-100) mmHg Base Excess (-2.0-2.0) O2 Saturation (94-100) g/dF ABG pH (7.35-7.45) ABG HCO3 (22-28) ABG O2 Sat (Measured) (95-100) % Donato Test A-a Gradient a/A Ratio Hemoglobin Carboxyhemoglobin (0.0-6.9) % THgb Methemoglobin (1.4-1.5) % Temperature C POC O2 Flow Rate % Sodium (137-145) mmol/L Potassium (3.5-5.1) mmol/L Chloride (98-107) mmol/L Carbon Dioxide (22-30) mmol/L Anion Gap (5-15) MEQ/L BUN (7-17) mg/dL Creatinine (0.52-1.04) mg/dL Estimated GFR ML/MIN Glucose (74-106) mg/dL POC Glucometer 325 H (74 to 106) mg/dL Hemoglobin A1c (4.5-6.0) % Calcium (8.4-10.2) mg/dL Phosphorus (2.5-4.5) mg/dL Magnesium (1.6-2.3) mg/dL Total Bilirubin (0.2-1.3) mg/dL AST (14-36) U/L ALT (0-35) U/L Alkaline Phosphatase (38-126) U/L Serum Total Protein (6.3-8.2) g/dL Albumin (3.5-5.0) g/dL Lipase (23-300) U/L TSH 3rd Generation (0.47-4.68) mIU/L Beta HCG, Quant mIU/ml Urine Color (Yellow) Urine Appearance (Clear) Urine pH (4.6-8.0) Ur Specific [place] (1.005-1.030) Urine Protein (Negative) Urine Glucose (UA) (Negative) mg/dL Urine Ketones (Negative) Urine Blood (Negative) Urine Nitrite (Negative) Urine Bilirubin (Negative) Urine Urobilinogen (0.2) mg/dL Ur Leukocyte Esterase (Negative) U Hyaline Cast (Auto) (0-2) /LPF Urine Microscopic RBC (0-5) /HPF Urine Microscopic WBC (0-5) /HPF Ur Epithelial Cells (None Seen) /HPF Urine Bacteria (None Seen) /HPF Urine Culture Reflexed (NO) Accuchecks Date 09/19/23 Date 09/19/23 Time 08:34 Time 07:25 - Radiology Impressions Radiology Exams & Impressions: Radiology Procedures Category Date Time Status ABDOMEN AND PELVIS W/0 CONTRAS [CT] Stat Exams 09/19/23 06:39 Completed Assessment/Plan (1) DKA (diabetic ketoacidosis) Current Visit: Yes Status: Acute Assessment & Plan: -Admit IP ICU -No pmhx of diabetes/ CT with pancreatitis w/significant edema of the head/body of pancreas, no CBC dilatation/stones - Blood Glucose-325 ; Ketones in urine >160 - Maintain NPO until n/v controlled, then advance to CLD ADAT 225g carb diet and start IV Fluids: Received 1 Liter NS/ 1 Liter LR in the ED, will receive 1 additional liter bolus of NS, then NS at 250mg/hr - Will start Insulin gtt on DKA protocol with close monitoring of BMP Q2H - Once BG <250 will add D5W -Patient naive insulin -per report has not taken insulin in 2 years. Will initiate home insulin regimen with long acting at dose 0.5u/kg per day plus SSI once gap is <18 - Patient will need re-educated regarding the importance of compliance to insulin regimen/risks/benefits. Advise patient to monitor BS AC/HS. Will need outpt referral to Endocrinology/ nursing educator/ bricklayer helper - Will convert to 90-140 insulin protocol once AG closes x 2 and start subcutaneous insulin and d/c IV Insulin in 3-4 hrs - Check Blood cultures/pending -UA negative - monitor K and Na - Last HbA1C was 10.28 drawn 09/19/23 -Zofran Anion Gap Metabolic Acidosis 2/2 dka - pH 7.42 / pCO2 31/ gap 24.4 - Check Q2H VBGs and correct as needed with of HCO3 if pH <6.9 PseudoHyponatremia - result of DKA; trend with BMPs and IVF Code(s): E11.10 - TYPE 2 DIABETES MELLITUS WITH KETOACIDOSIS WITHOUT COMA (2) Acute pancreatitis Current Visit: Yes Status: Acute Assessment & Plan: -lipase 495, could be reactive from DKA but CT Scan of the abdomen is showing significant edema of head/body of pancreas, no CBD dilatation/stones -Bedside Index of Acute Pancreatitis (BISAP) score -1,[place]'s score - 2 -Maintain NPO for now, and then advance diet as tolerated starting from clear liquids and then progressing to low fat/low carb diet as tolerated -Continue IV Hydration -Maintain adequate analgesia with morphine 1-2 mg IV Q4H PRN for severe pain -Maintain IV Zofran PRN for nausea -Check TG level -Check US (RUQ) to rule out gallstones -Monitor accuchecks given risk of hypoglycemia -Monitor oxygenation and provide supplemental oxygen if needed for goal > 95% Code(s): K85.90 - ACUTE PANCREATITIS WITHOUT NECROSIS OR INFECTION, UNSP (3) Abdominal pain Current Visit: Yes Status: Acute Assessment & Plan: -secondary to pancreatitis, see above Code(s): R10.9 - UNSPECIFIED ABDOMINAL PAIN (4) Hypomagnesemia Current Visit: Yes Status: Acute Assessment & Plan: -Mg level at 1.5, will replenish per protocol with daily monitoring Code(s): E83.42 - HYPOMAGNESEMIA (5) Diabetes Current Visit: Yes Status: Acute Assessment & Plan: -new onset -ELEN, CPEPTIDE, Insulin abs ordered and pending -See DKA -Patient is insulin naive, once GAP closed <18, will start low carb 225g diet, long acting insulin at 0.5u/kg per day with SSI -Continue insulin drip for 2 hours after the initiation of subq insulin -CM consult. Patient will need glucometer, lancets, diabetic education consult, bricklayer helper consult, and endocrinology/pcp referral on discharge. Code(s): E11.9 - TYPE 2 DIABETES MELLITUS WITHOUT COMPLICATIONS (6) Leukocytosis Current Visit: Yes Status: Acute Assessment & Plan: -Most likely reactive due to DKA, UA negative, blood cultures pending Code(s): D72.829 - ELEVATED WHITE BLOOD CELL COUNT, UNSPECIFIED
[2023-09-19] MEDS ORDERED: GlucaGen 1 MG IM PRN (10:45)
[2023-09-19] MEDS ORDERED: D50W 50 ml Abboject IV PRN (10:45)
[2023-09-19] MEDS ORDERED: Glutose 15 GM ORAL GEL PO PRN (10:45)
[2023-09-19] MEDS ORDERED: Sodium Chloride 0.9% 1000 ML 1,000 ML IV SCH (10:45)
[2023-09-19] MEDS ORDERED: MORPHINE SULFATE 4 MG INJ IV PRN (10:54)
[2023-09-19] MEDS ORDERED: MAGNESIUM SULF 2 G/50 ML BAG 2 GM/50 ML PIGGYBACK IV ONE (11:00)
[2023-09-19] MEDS ORDERED: Lantus Insulin SQ SCH (11:00)
[2023-09-19] MEDS: D5W/0.45NS W/ 20mEq KCl 1000 ML 1,000 ML IV SCH ×2 (11:24→18:10)
[2023-09-19 11:51] LABS: VBG BASE EXCESS -1.6 (-2.0-2.0); VBG CARBOXYHEMOGLOBIN 6.9 % T HGB (0.0-6.9); VBG HCO3- 18.8 meq/L (22-28); VBG HEMOGLOBIN 14.4; VBG O2 SATURATION 98.3 (95-100); VBG pH 7.54 (7.32-7.42)
[2023-09-19] MEDS ORDERED: Zofran 4 MG/2 ML VIAL IV PRN (12:23)
[2023-09-19 12:58] LABS: Calcium 7.9 mg/dL (8.4-10.2); Creatinine 1 0.37 mg/dL (0.52-1.04); EST GLOMERULAR FILTRATION RATE 139.1 ML/MIN; PHOSPHOROUS 2.3 mg/dL (2.5-4.5)
[2023-09-19 13:03] LABS: Potassium 3.8 mmol/L (3.5-5.1)
[2023-09-19 13:20] LABS: ANION GAP 16.8 MEQ/L (5-15)
[2023-09-19 15:49] LABS: ANION GAP 15.4 MEQ/L (5-15); Creatinine 1 0.42 mg/dL (0.52-1.04); EST GLOMERULAR FILTRATION RATE 134.9 ML/MIN; Potassium 3.7 mmol/L (3.5-5.1)
[2023-09-19 20:31] LABS: ANION GAP 11.9 MEQ/L (5-15); Calcium 8.1 mg/dL (8.4-10.2); Creatinine 1 0.44 mg/dL (0.52-1.04); EST GLOMERULAR FILTRATION RATE 133.4 ML/MIN; Potassium 3.7 mmol/L (3.5-5.1)
[2023-09-19] MEDS ORDERED: Lantus Insulin ONE (20:44)
[2023-09-19 23:57] LABS: Creatinine 1 0.43 mg/dL (0.52-1.04); EST GLOMERULAR FILTRATION RATE 134.1 ML/MIN; Potassium 3.8 mmol/L (3.5-5.1)
[2023-09-20] MEDS: Sodium Chloride 0.9% 1000 ML 1,000 ML IV SCH ×3 (01:36→01:56)
[2023-09-20] MEDS: D5W/0.45NS W/ 20mEq KCl 1000 ML 1,000 ML IV SCH ×2 (01:59→16:50)
[2023-09-20 04:09] LABS: Hematocrit 35.7 % (35-47); Hemoglobin 12.2 g/dL (12.0-16.0); Mean Cell Volume 85.4 fL (78-100); Mean Corpuscular Hemoglobin 29.2 pg (26-32); Mean Corpuscular Hgb Concent. 34.2 g/dL (32-36); Mean Platelet Volume 10.9 fL (7.5-11.0); Platelet Count 192 x10^3/uL (150-450); Red Blood Count 4.18 x10^6/uL (4.1-5.4); Red Cell Distribution Width 13.5 % (11.5-14.0); White Blood Count 10.6 x10^3/uL (4.0-10.5)
[2023-09-20] MEDS: HUMALOG SQ PRN ×5 (04:18→20:26)
[2023-09-20 04:33] LABS: ALBUMIN 3.1 g/dL (3.5-5.0); BILIRUBIN,TOTAL 1.8 mg/dL (0.2-1.3); Calcium 8.1 mg/dL (8.4-10.2); Creatinine 1 0.45 mg/dL (0.52-1.04); EST GLOMERULAR FILTRATION RATE 132.6 ML/MIN; Potassium 3.9 mmol/L (3.5-5.1); Total Protein 6.2 g/dL (6.3-8.2)
[2023-09-20 04:42] LABS: Cholesterol 305 mg/dL (50-200); HDL CHOLESTEROL 32 mg/dL (40-60); LDL, DIRECT < 36 mg/dL (30-100)
[2023-09-20 05:07] LABS: Risk Ratio 40.8; TRIGLYCERIDE 1308 mg/dL (30-150)
[2023-09-20] MEDS ORDERED: Lantus Insulin SQ SCH ×2 (10:00→22:00)
--- NOTE | 2023-09-20 13:29 | XRAY ---
Indication: Elevated liver enzymes. Pancreatitis. Two-dimensional right upper quadrant abdominal sonogram performed. Comparison: None Pancreas not well seen due to overlying bowel gas. Visualized liver demonstrates diffuse fatty echogenicity without focal solid/cystic mass. Gallbladder normally distended without gallstones, wall thickening, or pericholecystic fluid. Common bile duct measures 4.7 mm. No intrahepatic biliary distention. Right kidney measures 11.9 x 4.9 x 6.5 cm sonographic unremarkable. Impression: Nonvisualization pancreas. Fatty liver.
--- NOTE | 2023-09-20 14:03 | PCM.NOTE ---
Date and Time: 09/20/23 1358 - Review of Systems Constitutional: No Symptoms Eyes: No Symptoms Ears, Nose, & Throat: No Symptoms Respiratory: No Symptoms, No Cough Cardiac: No Symptoms Abdominal/Gastrointestinal: Abdominal Pain, Nausea, No Vomiting, No Diarrhea, No Constipation Genitourinary Symptoms: No Symptoms, No Dysuria Musculoskeletal: No Symptoms Skin: No Symptoms Neurological: No Symptoms Psychological: No Symptoms Endocrine: No Symptoms Immunological/Allergic: No Symptoms All Other Systems: Reviewed and Negative Objective Exam General Appearance: no apparent distress Neurologic Exam: alert, oriented x 3, cooperative Skin Exam: normal color, warm, dry Eye Exam: PERRL, EOMI Ears, Nose, Throat Exam: normal ENT inspection Neck Exam: normal inspection Respiratory Exam: normal breath sounds Cardiovascular Exam: regular rate/rhythm, normal heart sounds, normal peripheral pulses Gastrointestinal/Abdomen Exam: soft, normal bowel sounds, tenderness Extremity Exam: normal inspection Back Exam: normal inspection Pelvic Exam: deferred Rectal Exam: deferred OBJECTIVE DATA Vital Signs: Vital Signs - 24 hr Temp Pulse Resp BP BP Pulse Ox 09/20/23 11:26 97.0 F 98 H 17 113/61 95 09/20/23 09:32 91 H 09/20/23 08:00 99 H 37 H 92/66 94 L 09/20/23 07:49 91 H 09/20/23 07:37 91 H 09/20/23 07:08 94 L 09/20/23 07:00 99 H 24 110/64 93 L 09/20/23 06:00 91 H 23 101/61 94 L 09/20/23 05:00 97.8 F 91 H 11 L 101/68 96 09/20/23 04:00 94 H 18 104/64 94 L 09/20/23 03:00 97 H 20 101/60 92 L 09/20/23 02:00 92 H 30 H 92/64 95 09/20/23 01:08 97 H 19 95/60 91 L 09/20/23 00:00 97 H 23 91/61 94 L 09/19/23 23:00 91 H 12 97/66 09/19/23 22:00 92 H 25 H 91/67 94 L 09/19/23 21:02 94 H 18 103/65 98 09/19/23 20:00 93 H 18 100/61 94 L 09/19/23 19:00 92 H 9 L 104/66 09/19/23 18:57 93 L 09/19/23 16:00 102 H 25 H 97/59 93 L 09/19/23 15:00 103 H 17 103/59 09/19/23 14:00 106 H 24 90/62 96 Pain Assessment - Last Documented Pain Intensity 2 Intake and Output: Intake & Output 09/18/23 09/19/23 09/20/23 09/21/23 11:59 11:59 11:59 11:59 Intake Total 4503 Output Total 1700 Balance 2803 Weight 82.1 kg 86.1 kg Lab Results: Lab Results-Last 24 Hours 09/19/23 09/19/23 09/19/23 Range/Units 14:07 15:09 15:30 WBC (4.0-10.5) x10^3/uL RBC (4.1-5.4) x10^6/uL Hgb (12.0-16.0) g/dL Hct (35-47) % MCV (78-100) fL MCH (26-32) pg MCHC (32-36) g/dL RDW (11.5-14.0) % Plt Count (150-450) x10^3/uL MPV (7.5-11.0) fL Sodium 136 L (137-145) mmol/L Potassium 3.7 (3.5-5.1) mmol/L Chloride 104 (98-107) mmol/L Carbon Dioxide 20 L (22-30) mmol/L Anion Gap 15.4 H (5-15) MEQ/L BUN 5 L (7-17) mg/dL Creatinine 0.42 L (0.52-1.04) mg/dL Estimated GFR 134.9 ML/MIN Glucose 226 H (74-106) mg/dL POC Glucometer 231 H 222 H (74 to 106) mg/dL Calcium 8.0 L (8.4-10.2) mg/dL Magnesium (1.6-2.3) mg/dL Total Bilirubin (0.2-1.3) mg/dL AST (14-36) U/L ALT (0-35) U/L Alkaline Phosphatase (38-126) U/L Serum Total Protein (6.3-8.2) g/dL Albumin (3.5-5.0) g/dL Triglycerides (30-150) mg/dL Cholesterol (50-200) mg/dL LDL Cholesterol (30-100) mg/dL HDL Cholesterol (40-60) mg/dL Heart Disease Risk Ratio 09/19/23 09/19/23 09/19/23 Range/Units 15:30 16:12 17:10 WBC (4.0-10.5) x10^3/uL RBC (4.1-5.4) x10^6/uL Hgb (12.0-16.0) g/dL Hct (35-47) % MCV (78-100) fL MCH (26-32) pg MCHC (32-36) g/dL RDW (11.5-14.0) % Plt Count (150-450) x10^3/uL MPV (7.5-11.0) fL Sodium (137-145) mmol/L Potassium (3.5-5.1) mmol/L Chloride (98-107) mmol/L Carbon Dioxide (22-30) mmol/L Anion Gap (5-15) MEQ/L BUN (7-17) mg/dL Creatinine (0.52-1.04) mg/dL Estimated GFR ML/MIN Glucose (74-106) mg/dL POC Glucometer 231 H 217 H (74 to 106) mg/dL Calcium (8.4-10.2) mg/dL Magnesium 2.0 (1.6-2.3) mg/dL Total Bilirubin (0.2-1.3) mg/dL AST (14-36) U/L ALT (0-35) U/L Alkaline Phosphatase (38-126) U/L Serum Total Protein (6.3-8.2) g/dL Albumin (3.5-5.0) g/dL Triglycerides (30-150) mg/dL Cholesterol (50-200) mg/dL LDL Cholesterol (30-100) mg/dL HDL Cholesterol (40-60) mg/dL Heart Disease Risk Ratio 09/19/23 09/19/23 09/19/23 Range/Units 18:15 19:00 19:45 WBC (4.0-10.5) x10^3/uL RBC (4.1-5.4) x10^6/uL Hgb (12.0-16.0) g/dL Hct (35-47) % MCV (78-100) fL MCH (26-32) pg MCHC (32-36) g/dL RDW (11.5-14.0) % Plt Count (150-450) x10^3/uL MPV (7.5-11.0) fL Sodium 135 L (137-145) mmol/L Potassium 3.7 (3.5-5.1) mmol/L Chloride 105 (98-107) mmol/L Carbon Dioxide 22 (22-30) mmol/L Anion Gap 11.9 (5-15) MEQ/L BUN 4 L (7-17) mg/dL Creatinine 0.44 L (0.52-1.04) mg/dL Estimated GFR 133.4 ML/MIN Glucose 185 H (74-106) mg/dL POC Glucometer 217 H 213 H (74 to 106) mg/dL Calcium 8.1 L (8.4-10.2) mg/dL Magnesium (1.6-2.3) mg/dL Total Bilirubin (0.2-1.3) mg/dL AST (14-36) U/L ALT (0-35) U/L Alkaline Phosphatase (38-126) U/L Serum Total Protein (6.3-8.2) g/dL Albumin (3.5-5.0) g/dL Triglycerides (30-150) mg/dL Cholesterol (50-200) mg/dL LDL Cholesterol (30-100) mg/dL HDL Cholesterol (40-60) mg/dL Heart Disease Risk Ratio 09/19/23 09/19/23 09/19/23 Range/Units 19:56 21:03 22:02 WBC (4.0-10.5) x10^3/uL RBC (4.1-5.4) x10^6/uL Hgb (12.0-16.0) g/dL Hct (35-47) % MCV (78-100) fL MCH (26-32) pg MCHC (32-36) g/dL RDW (11.5-14.0) % Plt Count (150-450) x10^3/uL MPV (7.5-11.0) fL Sodium (137-145) mmol/L Potassium (3.5-5.1) mmol/L Chloride (98-107) mmol/L Carbon Dioxide (22-30) mmol/L Anion Gap (5-15) MEQ/L BUN (7-17) mg/dL Creatinine (0.52-1.04) mg/dL Estimated GFR ML/MIN Glucose (74-106) mg/dL POC Glucometer 186 H 177 H 169 H (74 to 106) mg/dL Calcium (8.4-10.2) mg/dL Magnesium (1.6-2.3) mg/dL Total Bilirubin (0.2-1.3) mg/dL AST (14-36) U/L ALT (0-35) U/L Alkaline Phosphatase (38-126) U/L Serum Total Protein (6.3-8.2) g/dL Albumin (3.5-5.0) g/dL Triglycerides (30-150) mg/dL Cholesterol (50-200) mg/dL LDL Cholesterol (30-100) mg/dL HDL Cholesterol (40-60) mg/dL Heart Disease Risk Ratio 09/19/23 09/19/23 09/20/23 Range/Units 23:02 23:40 00:03 WBC (4.0-10.5) x10^3/uL RBC (4.1-5.4) x10^6/uL Hgb (12.0-16.0) g/dL Hct (35-47) % MCV (78-100) fL MCH (26-32) pg MCHC (32-36) g/dL RDW (11.5-14.0) % Plt Count (150-450) x10^3/uL MPV (7.5-11.0) fL Sodium 135 L (137-145) mmol/L Potassium 3.8 (3.5-5.1) mmol/L Chloride 106 (98-107) mmol/L Carbon Dioxide 21 L (22-30) mmol/L Anion Gap 12.0 (5-15) MEQ/L BUN 4 L (7-17) mg/dL Creatinine 0.43 L (0.52-1.04) mg/dL Estimated GFR 134.1 ML/MIN Glucose 189 H (74-106) mg/dL POC Glucometer 159 H 201 H (74 to 106) mg/dL Calcium 8.0 L (8.4-10.2) mg/dL Magnesium (1.6-2.3) mg/dL Total Bilirubin (0.2-1.3) mg/dL AST (14-36) U/L ALT (0-35) U/L Alkaline Phosphatase (38-126) U/L Serum Total Protein (6.3-8.2) g/dL Albumin (3.5-5.0) g/dL Triglycerides (30-150) mg/dL Cholesterol (50-200) mg/dL LDL Cholesterol (30-100) mg/dL HDL Cholesterol (40-60) mg/dL Heart Disease Risk Ratio 09/20/23 09/20/23 09/20/23 Range/Units 04:00 04:00 04:00 WBC 10.6 H (4.0-10.5) x10^3/uL RBC 4.18 (4.1-5.4) x10^6/uL Hgb 12.2 D (12.0-16.0) g/dL Hct 35.7 (35-47) % MCV 85.4 (78-100) fL MCH 29.2 (26-32) pg MCHC 34.2 (32-36) g/dL RDW 13.5 (11.5-14.0) % Plt Count 192 (150-450) x10^3/uL MPV 10.9 (7.5-11.0) fL Sodium (137-145) mmol/L Potassium (3.5-5.1) mmol/L Chloride (98-107) mmol/L Carbon Dioxide (22-30) mmol/L Anion Gap (5-15) MEQ/L BUN (7-17) mg/dL Creatinine (0.52-1.04) mg/dL Estimated GFR ML/MIN Glucose (74-106) mg/dL POC Glucometer (74 to 106) mg/dL Calcium (8.4-10.2) mg/dL Magnesium 2.0 (1.6-2.3) mg/dL Total Bilirubin (0.2-1.3) mg/dL AST (14-36) U/L ALT (0-35) U/L Alkaline Phosphatase (38-126) U/L Serum Total Protein (6.3-8.2) g/dL Albumin (3.5-5.0) g/dL Triglycerides 1308 H (30-150) mg/dL Cholesterol 305 H (50-200) mg/dL LDL Cholesterol < 36 (30-100) mg/dL HDL Cholesterol 32 L (40-60) mg/dL Heart Disease Risk Ratio 40.8 09/20/23 09/20/23 09/20/23 Range/Units 04:00 04:00 07:02 WBC (4.0-10.5) x10^3/uL RBC (4.1-5.4) x10^6/uL Hgb (12.0-16.0) g/dL Hct (35-47) % MCV (78-100) fL MCH (26-32) pg MCHC (32-36) g/dL RDW (11.5-14.0) % Plt Count (150-450) x10^3/uL MPV (7.5-11.0) fL Sodium 134 L (137-145) mmol/L Potassium 3.9 (3.5-5.1) mmol/L Chloride 105 (98-107) mmol/L Carbon Dioxide 22 (22-30) mmol/L Anion Gap 11.0 (5-15) MEQ/L BUN 4 L (7-17) mg/dL Creatinine 0.45 L (0.52-1.04) mg/dL Estimated GFR 132.6 ML/MIN Glucose 267 H (74-106) mg/dL POC Glucometer 260 H 232 H (74 to 106) mg/dL Calcium 8.1 L (8.4-10.2) mg/dL Magnesium (1.6-2.3) mg/dL Total Bilirubin 1.80 H (0.2-1.3) mg/dL AST 33 (14-36) U/L ALT 33 (0-35) U/L Alkaline Phosphatase 50 (38-126) U/L Serum Total Protein 6.2 L (6.3-8.2) g/dL Albumin 3.1 L (3.5-5.0) g/dL Triglycerides (30-150) mg/dL Cholesterol (50-200) mg/dL LDL Cholesterol (30-100) mg/dL HDL Cholesterol (40-60) mg/dL Heart Disease Risk Ratio 09/20/23 Range/Units 11:21 WBC (4.0-10.5) x10^3/uL RBC (4.1-5.4) x10^6/uL Hgb (12.0-16.0) g/dL Hct (35-47) % MCV (78-100) fL MCH (26-32) pg MCHC (32-36) g/dL RDW (11.5-14.0) % Plt Count (150-450) x10^3/uL MPV (7.5-11.0) fL Sodium (137-145) mmol/L Potassium (3.5-5.1) mmol/L Chloride (98-107) mmol/L Carbon Dioxide (22-30) mmol/L Anion Gap (5-15) MEQ/L BUN (7-17) mg/dL Creatinine (0.52-1.04) mg/dL Estimated GFR ML/MIN Glucose (74-106) mg/dL POC Glucometer 214 H (74 to 106) mg/dL Calcium (8.4-10.2) mg/dL Magnesium (1.6-2.3) mg/dL Total Bilirubin (0.2-1.3) mg/dL AST (14-36) U/L ALT (0-35) U/L Alkaline Phosphatase (38-126) U/L Serum Total Protein (6.3-8.2) g/dL Albumin (3.5-5.0) g/dL Triglycerides (30-150) mg/dL Cholesterol (50-200) mg/dL LDL Cholesterol (30-100) mg/dL HDL Cholesterol (40-60) mg/dL Heart Disease Risk Ratio Radiology Exams: Radiology Procedures Category Date Time Status ABDOMEN AND PELVIS W/0 CONTRAS [CT] Stat Exams 09/19/23 06:39 Completed US ABDOMEN LIMITED [ABDOMINAL-LIMITED] [US] Routine Exams 09/20/23 12:52 Completed Multi-Disciplinary Progress Notes: Multi-Disciplinary Progress Notes 09/20/23 12:25 Nutrition Note by Shirlene Miranda Attempted to educate pt. Pt trying to sleep. Asked me to return tomorrow. Left written materials at bedside. LATISHA Engel Initialized on 09/20/23 12:25 - END OF NOTE 09/20/23 10:58 Case Management Note by Thais Garnica S/W PATIENT AND ASKED ESTER CLANCY, TO BRING PATIENT'S GLUCOMETER IN TO MAKE SURE IT STILL WORKS AND TO MAKE SURE THEY HAVE THE STRIPS AND EVERYTHING THEY NEED TO PERFORM THE THE TESTS CORRECTLY. ALSO TO SEE IF THEY NEED ADDITIONAL EDUCATION OR SUUPLIES. ALSO REFFERAL MADE TO ACO, AYDE DIAZ, TO FOLLOW PATIENT AFTER DC AND PATIENT INFORMED OF REFERRAL. Initialized on 09/20/23 10:58 - END OF NOTE Assessment/Plan (1) Acute pancreatitis Current Visit: Yes Status: Acute Assessment & Plan: Admitted with acute pancreatitis and abdominal pain. Pain is improving. Continue bowel rest, IV fluids and pain control. Will get us to make sure she does not have gallbladder disease. Code(s): K85.90 - ACUTE PANCREATITIS WITHOUT NECROSIS OR INFECTION, UNSP (2) DKA (diabetic ketoacidosis) Current Visit: Yes Status: Acute Qualifiers: Diabetes mellitus type: type 2 Assessment & Plan: Acidosis resolved and gap is closed. Plan sliding scale and monitor BS closely. Electrolytes look ok. Begin long acting insulin Code(s): E11.10 - TYPE 2 DIABETES MELLITUS WITH KETOACIDOSIS WITHOUT COMA (3) Diabetes Current Visit: Yes Status: Acute Qualifiers: Diabetes mellitus type: type 2 Assessment & Plan: Patient was on treatment for diabetes but stopped meds because she couldn't understand how to take it. She has boyfreind that maybe able to help her. Will start long acting insulin. She may need to change to oral meds if she is unable to handle insulin Will need close outpatient follow up. Begin diabetic teaching. Code(s): E11.9 - TYPE 2 DIABETES MELLITUS WITHOUT COMPLICATIONS (4) Hyperlipidemia associated with type 2 diabetes mellitus Current Visit: Yes Status: Acute Assessment & Plan: 1) DKA (diabetic ketoacidosis) Hyperlipidemia with elevated TG. Likely has lipemia due to DKA Need to recheck lipids after BS controlled. Note that total cholesterol reported as 304 but LDL not elevated Needs repeat lipid panel Code(s): E11.69 - TYPE 2 DIABETES MELLITUS WITH OTHER SPECIFIED COMPLICATION; E78.5 - HYPERLIPIDEMIA, UNSPECIFIED Telemedicine Encounter - Telemedicine Encounter Telemedicine Encounter: The entirety of this encounter was performed via Telemedicine after consent obtained. Labs and imaging reviewed. Cl Cureil MD [facility]
[2023-09-20 14:19] LABS: C-Peptide 4.2 ng/mL (1.1-4.4)
[2023-09-20 14:41] LABS: Hemoglobin 12.6 g/dL (12.0-16.0); Mean Cell Volume 86.4 fL (78-100); Mean Corpuscular Hemoglobin 29.4 pg (26-32); Mean Corpuscular Hgb Concent. 34.1 g/dL (32-36); Mean Platelet Volume 11.1 fL (7.5-11.0); Platelet Count 189 x10^3/uL (150-450); Red Blood Count 4.28 x10^6/uL (4.1-5.4); Red Cell Distribution Width 13.2 % (11.5-14.0); White Blood Count 11.4 x10^3/uL (4.0-10.5)
[2023-09-20 15:13] LABS: ALBUMIN 3.5 g/dL (3.5-5.0); ANION GAP 10.3 MEQ/L (5-15); BILIRUBIN,TOTAL 1.7 mg/dL (0.2-1.3); Calcium 8.6 mg/dL (8.4-10.2); Creatinine 1 0.45 mg/dL (0.52-1.04); EST GLOMERULAR FILTRATION RATE 132.6 ML/MIN; MAGNESIUM 2.1 mg/dL (1.6-2.3); PHOSPHOROUS 1.8 mg/dL (2.5-4.5); Potassium 3.7 mmol/L (3.5-5.1); Total Protein 7.2 g/dL (6.3-8.2)
[2023-09-20 17:02] LABS: ABG SITE RIGHT RADIAL; ALLEN TEST OK? YES
[2023-09-21] MEDS: HUMALOG SQ PRN ×3 (00:03→08:15)
[2023-09-21] MEDS: D5W/0.45NS W/ 20mEq KCl 1000 ML 1,000 ML IV SCH ×2 (01:48→15:08)
[2023-09-21 05:10] LABS: Hematocrit 35.3 % (35-47); Hemoglobin 11.7 g/dL (12.0-16.0); Mean Cell Volume 86.9 fL (78-100); Mean Corpuscular Hemoglobin 28.8 pg (26-32); Mean Corpuscular Hgb Concent. 33.1 g/dL (32-36); Mean Platelet Volume 10.8 fL (7.5-11.0); Platelet Count 183 x10^3/uL (150-450); Red Blood Count 4.06 x10^6/uL (4.1-5.4); Red Cell Distribution Width 13.3 % (11.5-14.0); White Blood Count 8.6 x10^3/uL (4.0-10.5)
[2023-09-21 05:26] LABS: ALBUMIN 3.5 g/dL (3.5-5.0); ANION GAP 12.1 MEQ/L (5-15); BILIRUBIN,TOTAL 1.6 mg/dL (0.2-1.3); Calcium 8.8 mg/dL (8.4-10.2); Creatinine 1 0.42 mg/dL (0.52-1.04); EST GLOMERULAR FILTRATION RATE 134.9 ML/MIN; MAGNESIUM 2.1 mg/dL (1.6-2.3); PHOSPHOROUS 2.5 mg/dL (2.5-4.5); Total Protein 7.1 g/dL (6.3-8.2)
--- NOTE | 2023-09-21 10:33 | PCM.DS ---
Discharge Summary Date of Admission: 09/19/23 08:00 Date of Discharge: 09/21/2023 Admitting Physician: CAROL KELLEY MD Consults: Consults on Case 09/19/23 09:45 Nutritional Consult ROUTINE 09/19/23 10:45 Notify Physician ROUTINE Primary Care Provider: NO FAMILY DOCTOR Allergies Allergies No Known Drug Allergies Allergy (Verified 09/19/23 05:22) Hospital Summary - Hospital Course Hospital Course: This patient was admitted with abdominal pain. She was found to have evidence of acute pancreatitis. She was treated with bowel rest, IV fluids and pain controlled. Her pain resolved and pancreatitis resolved. The patient has diabetes and had evidence of diabetic ketoacidosis. She was treated with IV fluids and IV insulin. Her blood sugars improved and acidosis resolved. She was changed to SQ insulin. This patient has problems understanding her insulin and how to check her blood sugars. We had her get her glucometer from home and instructed her on blood sugar checks and administration of insulin. The patient is much improved and will be dismissed on 09/21/23. - Vitals & Intake/Output Vital Signs: Vital Signs Temperature 96.2 F 09/21/23 08:00 Pulse Rate 90 09/21/23 08:00 Respiratory Rate 16 09/21/23 08:00 Blood Pressure 104/65 09/21/23 08:00 O2 Sat by Pulse Oximetry 98 09/21/23 08:00 Intake & Output: Intake & Output 09/18/23 09/19/23 09/20/23 09/21/23 11:59 11:59 11:59 11:59 Intake Total 4503 1480 Output Total 1700 1000 Balance 2803 480 Weight 82.1 kg 86.1 kg 86.1 kg - Lab Result Diagrams: 09/21/23 04:45 09/21/23 04:45 Lab Results-Last 24 Hrs: Lab Results-Last 24 Hours 09/19/23 09/19/23 09/20/23 Range/Units 07:20 08:00 11:21 WBC (4.0-10.5) x10^3/uL RBC (4.1-5.4) x10^6/uL Hgb (12.0-16.0) g/dL Hct (35-47) % MCV (78-100) fL MCH (26-32) pg MCHC (32-36) g/dL RDW (11.5-14.0) % Plt Count (150-450) x10^3/uL MPV (7.5-11.0) fL Puncture Site RIGHT RADIAL Donato Test YES Sodium (137-145) mmol/L Potassium (3.5-5.1) mmol/L Chloride (98-107) mmol/L Carbon Dioxide (22-30) mmol/L Anion Gap (5-15) MEQ/L BUN (7-17) mg/dL Creatinine (0.52-1.04) mg/dL Estimated GFR ML/MIN Glucose (74-106) mg/dL POC Glucometer 214 H (74 to 106) mg/dL Serum C-Peptide 4.2 (1.1-4.4) ng/mL Calcium (8.4-10.2) mg/dL Phosphorus (2.5-4.5) mg/dL Magnesium (1.6-2.3) mg/dL Total Bilirubin (0.2-1.3) mg/dL AST (14-36) U/L ALT (0-35) U/L Alkaline Phosphatase (38-126) U/L Serum Total Protein (6.3-8.2) g/dL Albumin (3.5-5.0) g/dL Lipase (23-300) U/L Insulin Antibody Pending [id number] Ab Pending 09/20/23 09/20/23 09/20/23 Range/Units 14:30 14:30 14:30 WBC 11.4 H (4.0-10.5) x10^3/uL RBC 4.28 (4.1-5.4) x10^6/uL Hgb 12.6 (12.0-16.0) g/dL Hct 37.0 (35-47) % MCV 86.4 (78-100) fL MCH 29.4 (26-32) pg MCHC 34.1 (32-36) g/dL RDW 13.2 (11.5-14.0) % Plt Count 189 (150-450) x10^3/uL MPV 11.1 H (7.5-11.0) fL Puncture Site Donato Test Sodium 135 L (137-145) mmol/L Potassium 3.7 (3.5-5.1) mmol/L Chloride 104 (98-107) mmol/L Carbon Dioxide 24 (22-30) mmol/L Anion Gap 10.3 (5-15) MEQ/L BUN 3 L (7-17) mg/dL Creatinine 0.45 L (0.52-1.04) mg/dL Estimated GFR 132.6 ML/MIN Glucose 198 H (74-106) mg/dL POC Glucometer (74 to 106) mg/dL Serum C-Peptide (1.1-4.4) ng/mL Calcium 8.6 (8.4-10.2) mg/dL Phosphorus 1.8 L (2.5-4.5) mg/dL Magnesium 2.1 (1.6-2.3) mg/dL Total Bilirubin 1.70 H (0.2-1.3) mg/dL AST 36 (14-36) U/L ALT 36 H (0-35) U/L Alkaline Phosphatase 56 (38-126) U/L Serum Total Protein 7.2 (6.3-8.2) g/dL Albumin 3.5 (3.5-5.0) g/dL Lipase 163 (23-300) U/L Insulin Antibody [id number] Ab 09/20/23 09/20/23 09/20/23 Range/Units 16:05 20:07 23:50 WBC (4.0-10.5) x10^3/uL RBC (4.1-5.4) x10^6/uL Hgb (12.0-16.0) g/dL Hct (35-47) % MCV (78-100) fL MCH (26-32) pg MCHC (32-36) g/dL RDW (11.5-14.0) % Plt Count (150-450) x10^3/uL MPV (7.5-11.0) fL Puncture Site Donato Test Sodium (137-145) mmol/L Potassium (3.5-5.1) mmol/L Chloride (98-107) mmol/L Carbon Dioxide (22-30) mmol/L Anion Gap (5-15) MEQ/L BUN (7-17) mg/dL Creatinine (0.52-1.04) mg/dL Estimated GFR ML/MIN Glucose (74-106) mg/dL POC Glucometer 204 H 247 H 210 H (74 to 106) mg/dL Serum C-Peptide (1.1-4.4) ng/mL Calcium (8.4-10.2) mg/dL Phosphorus (2.5-4.5) mg/dL Magnesium (1.6-2.3) mg/dL Total Bilirubin (0.2-1.3) mg/dL AST (14-36) U/L ALT (0-35) U/L Alkaline Phosphatase (38-126) U/L Serum Total Protein (6.3-8.2) g/dL Albumin (3.5-5.0) g/dL Lipase (23-300) U/L Insulin Antibody [id number] Ab 09/21/23 09/21/23 09/21/23 Range/Units 04:45 04:45 05:02 WBC 8.6 (4.0-10.5) x10^3/uL RBC 4.06 L (4.1-5.4) x10^6/uL Hgb 11.7 L (12.0-16.0) g/dL Hct 35.3 (35-47) % MCV 86.9 (78-100) fL MCH 28.8 (26-32) pg MCHC 33.1 (32-36) g/dL RDW 13.3 (11.5-14.0) % Plt Count 183 (150-450) x10^3/uL MPV 10.8 (7.5-11.0) fL Puncture Site Donato Test Sodium 136 L (137-145) mmol/L Potassium 4.0 (3.5-5.1) mmol/L Chloride 105 (98-107) mmol/L Carbon Dioxide 23 (22-30) mmol/L Anion Gap 12.1 (5-15) MEQ/L BUN 4 L (7-17) mg/dL Creatinine 0.42 L (0.52-1.04) mg/dL Estimated GFR 134.9 ML/MIN Glucose 240 H (74-106) mg/dL POC Glucometer 223 H (74 to 106) mg/dL Serum C-Peptide (1.1-4.4) ng/mL Calcium 8.8 (8.4-10.2) mg/dL Phosphorus 2.5 (2.5-4.5) mg/dL Magnesium 2.1 (1.6-2.3) mg/dL Total Bilirubin 1.60 H (0.2-1.3) mg/dL AST 36 (14-36) U/L ALT 37 H (0-35) U/L Alkaline Phosphatase 57 (38-126) U/L Serum Total Protein 7.1 (6.3-8.2) g/dL Albumin 3.5 (3.5-5.0) g/dL Lipase 184 (23-300) U/L Insulin Antibody [id number] Ab 09/21/23 Range/Units 06:56 WBC (4.0-10.5) x10^3/uL RBC (4.1-5.4) x10^6/uL Hgb (12.0-16.0) g/dL Hct (35-47) % MCV (78-100) fL MCH (26-32) pg MCHC (32-36) g/dL RDW (11.5-14.0) % Plt Count (150-450) x10^3/uL MPV (7.5-11.0) fL Puncture Site Donato Test Sodium (137-145) mmol/L Potassium (3.5-5.1) mmol/L Chloride (98-107) mmol/L Carbon Dioxide (22-30) mmol/L Anion Gap (5-15) MEQ/L BUN (7-17) mg/dL Creatinine (0.52-1.04) mg/dL Estimated GFR ML/MIN Glucose (74-106) mg/dL POC Glucometer 237 H (74 to 106) mg/dL Serum C-Peptide (1.1-4.4) ng/mL Calcium (8.4-10.2) mg/dL Phosphorus (2.5-4.5) mg/dL Magnesium (1.6-2.3) mg/dL Total Bilirubin (0.2-1.3) mg/dL AST (14-36) U/L ALT (0-35) U/L Alkaline Phosphatase (38-126) U/L Serum Total Protein (6.3-8.2) g/dL Albumin (3.5-5.0) g/dL Lipase (23-300) U/L Insulin Antibody [id number] Ab Micro Results-Entire Visit: Accuchecks Date 09/21/23 Date 09/21/23 Date 09/20/23 Date 09/20/23 Date 09/20/23 Date 09/20/23 Time 07:12 Time 16:28 Time 11:26 - Radiology Exams Ordered Rad Exams-Entire Visit: Radiology Procedures Category Date Time Status US ABDOMEN LIMITED [ABDOMINAL-LIMITED] [US] Routine Exams 09/20/23 12:52 Completed Discharge Exam General Appearance: no apparent distress Neurologic Exam: alert, oriented x 3, cooperative Eye Exam: PERRL, EOMI Ears, Nose, Throat Exam: normal ENT inspection Neck Exam: normal inspection, non-tender, supple Respiratory Exam: normal breath sounds Cardiovascular Exam: regular rate/rhythm, normal heart sounds, normal peripheral pulses Gastrointestinal/Abdomen Exam: soft, normal bowel sounds, No tenderness Pelvic Exam: deferred Rectal Exam: deferred Back Exam: normal inspection Extremity Exam: normal inspection Skin Exam: normal color, warm, dry Final Diagnosis/Problem List - Final Discharge Diagnosis/Problem (1) Acute pancreatitis Current Visit: Yes Status: Acute Assessment & Plan: Pancreatitis resolved. Code(s): K85.90 - ACUTE PANCREATITIS WITHOUT NECROSIS OR INFECTION, UNSP (2) DKA (diabetic ketoacidosis) Current Visit: Yes Status: Acute Assessment & Plan: DKA resolved Code(s): E11.10 - TYPE 2 DIABETES MELLITUS WITH KETOACIDOSIS WITHOUT COMA (3) Diabetes Current Visit: Yes Status: Acute Assessment & Plan: Dismiss with Lantus 50 units hs and SS insulin Patient instructed on glucose monitoring and use of insulin Follow up with PCP Code(s): E11.9 - TYPE 2 DIABETES MELLITUS WITHOUT COMPLICATIONS (4) Hyperlipidemia associated with type 2 diabetes mellitus Current Visit: Yes Status: Acute Assessment & Plan: Patient had lipemia due to DKA. Lipids need to be rechecked when blood sugars are controlled. Current lipid panel is not accurate due to lipemia PCP to decide about treatment for lipids. Code(s): E11.69 - TYPE 2 DIABETES MELLITUS WITH OTHER SPECIFIED COMPLICATION; E78.5 - HYPERLIPIDEMIA, UNSPECIFIED Telemedicine Encounter - Telemedicine Encounter Telemedicine Encounter: The entirety of this encounter was performed via Telemedicine after consent obtained. Labs and imaging reviewed. 35 minutes spent on discharge. Cl Curiel MD [facility] - Discharge Disposition: Home, Self-Care Condition: Stable Prescriptions: New Insulin Glargine [Lantus Insulin] 50 unit SQ HS 30 Days #1 unit Instructions: Insulin Injection, Blood Glucose Monitoring, The ABCs of diabetes
[2023-09-21 12:19] VITALS: BP 126/82; PULSE 89; RESP 17; TEMP 96.8; O2SAT 97
[2023-09-21] MEDS ORDERED: Lantus Insulin SQ SCH (22:00)
== END 2023-09-21 15:59 | disposition home or self-care (01) ==
LOC: ED 05:13 → ICU 08:00 → MED SURG 09-20 09:11
PROVIDERS: ADMIT Internal Medicine; ATTEND Internal Medicine
DX: K85.90 Acute pancreatitis without necrosis or infection, unspecified (principal); E11.10 Type 2 diabetes mellitus with ketoacidosis without coma; E11.69 Type 2 diabetes mellitus with other specified complication; E78.5 Hyperlipidemia, unspecified; E83.42 Hypomagnesemia; D72.829 Elevated white blood cell count, unspecified; R00.0 Tachycardia, unspecified; R10.9 Unspecified abdominal pain; Z20.828 Contact with and (suspected) exposure to other viral communicable diseases
CPT/HCPCS: 36000; 36415; 36600; 74176; 76705; 80048; 80053; 80061; 81001; 82375; 82803; 82805; 82947; 83036; 83690; 83721; 83735; 84100; 84443; 84681; 84702; 85025; 85027; 86337; 86341; 93041; 93268; 99285; J1817; J2405; J3480; Q0162; Q3014; A9270-GY; G0378; J3475

== ENCOUNTER 2023-10-21 18:02 | Emergency (ER) | payer OTHER ==
[2023-10-21 18:47] VITALS: BP 175/108; PULSE 89; RESP 18; TEMP 98; O2SAT 99
--- NOTE | 2023-10-21 19:03 | ERPHSYRPT ---
- History of Present Illness Time Seen by Provider: 10/21/23 18:58 Source: patient Exam Limitations: no limitations Patient Subjective Stated Complaint: Patient states she has run out of her Lantus insulin that she takes at bedtime. Patient has not missed a dose yet but doesn't have any to to take tonight. Triage Nursing Assessment: Patient ambulated back to ER. She is alert and oriented. No SOB. Accucheck at this time per ER glucometer is 136. Physician History: Patient is a 32-year-old female who is recently diagnosed with diabetes who is out of her insulin because she missed an appointment with Dr. Christine has had 1 episode of DKA apparently Timing/Duration: today Allergies/Adverse Reactions: No Known Drug Allergies Allergy (Verified 10/21/23 18:43) Hx Tetanus, Diphtheria Vaccination/Date Given: Yes Hx Influenza Vaccination/Date Given: No Hx Pneumococcal Vaccination/Date Given: No Immunizations Up to Date: Yes Travel Risk - International Travel Have you traveled outside of the country in past 3 weeks: No - Coronavirus Screening Are you exhibiting any of the following symptoms?: No Close contact with a COVID-19 positive Pt in past 14-21 Days: No - Vaccine Status Have you recieved a Covid-19 vaccination: No - Review of Systems Constitutional: No Fever, No Chills Eyes: No Symptoms Ears, Nose, & Throat: No Symptoms Respiratory: No Cough, No Dyspnea Cardiac: No Chest Pain, No Edema, No Syncope Abdominal/Gastrointestinal: No Abdominal Pain, No Nausea, No Vomiting, No Diarrhea Genitourinary Symptoms: No Dysuria Musculoskeletal: No Back Pain, No Neck Pain Skin: No Rash Neurological: No Dizziness, No Focal Weakness, No Sensory Changes Psychological: No Symptoms Endocrine: No Symptoms All Other Systems: Reviewed and Negative - Past Medical History Pertinent Past Medical History: Yes Neurological History: No Pertinent History ENT History: No Pertinent History Cardiac History: No Pertinent History Respiratory History: No Pertinent History Endocrine Medical History: Diabetes Type II Musculoskeletal History: No Pertinent History GI Medical History: No Pertinent History History: No Pertinent History Psycho-Social History: No Pertinent History Female Reproductive Disorders: No Pertinent History Other Medical History: blood transfusion for heavy menstruation - Past Surgical History Past Surgical History: No Neuro Surgical History: No Pertinent History Cardiac: No Pertinent History Respiratory: No Pertinent History Gastrointestinal: No Pertinent History Genitourinary: No Pertinent History Musculoskeletal: No Pertinent History Female Surgical History: No Pertinent History - Social History Smoking Status: Never smoker Exposure to second hand smoke: No Drug Use: none Patient Lives Alone: No - Female History Hx Now: No - Nursing Vital Signs Nursing Vital Signs: Initial Vital Signs Temperature 98 F 10/21/23 18:44 Pulse Rate 89 10/21/23 18:44 Respiratory Rate 18 10/21/23 18:44 Blood Pressure 175/108 10/21/23 18:44 O2 Sat by Pulse Oximetry 99 10/21/23 18:44 Pain Scale Pain Intensity 0 - Physical Exam General Appearance: no apparent distress, alert Eye Exam: PERRL/EOMI, eyes nml inspection Ears, Nose, Throat Exam: normal ENT inspection, TMs normal, pharynx normal, moist mucous membranes Neck Exam: normal inspection, non-tender, supple, full range of motion Respiratory Exam: normal breath sounds, lungs clear, No respiratory distress Cardiovascular Exam: regular rate/rhythm, normal heart sounds, normal peripheral pulses Gastrointestinal/Abdomen Exam: soft, normal bowel sounds, No tenderness, No mass Back Exam: normal inspection, normal range of motion, No CVA tenderness, No vertebral tenderness Extremity Exam: normal inspection, normal range of motion, pelvis stable Neurologic Exam: alert, oriented x 3, cooperative, normal mood/affect, nml cerebellar function, nml station & gait, sensation nml, No motor deficits Skin Exam: normal color, warm, dry, No rash Lymphatic Exam: No adenopathy SpO2: 99 - Course Nursing assessment & vital signs reviewed: Yes Ordered Tests: Active Orders 24 hr Category Date Time Status POCT GLUCOSE Stat Lab 10/21/23 18:44 Completed Lab/Rad Data: Laboratory Results 10/21/23 Range/Units 18:44 POC Glucometer 136 H (74 to 106) mg/dL - Progress Progress: unchanged Medical Desision Making - Risk of complications Minimal Risk: Minimal risk of morbidity - Departure Departure Disposition: Home Clinical Impression: Diabetes mellitus Condition: Stable Critical Care Time: No Referrals: DOCTOR,NO FAMILY [Primary Care Provider] - Follow up/PCP as directed
[2023-10-21] MEDS ORDERED: Lantus Insulin ONE (19:20)
[2023-10-21] MEDS ORDERED: Lantus Insulin SQ SCH (22:00)
== END 2023-10-21 19:32 | disposition home or self-care (01) ==
LOC: ED 18:02
DX: E11.9 Type 2 diabetes mellitus without complications (principal); Z79.4 Long term (current) use of insulin; Z28.310 Unvaccinated for COVID-19
CPT/HCPCS: 82947; 96372; 99281; A9270-GY

== ENCOUNTER 2024-05-06 18:32 | Inpatient (IN) | payer OTHER ==
--- NOTE | 2024-05-06 19:17 | ERPHSYRPT ---
- History of Present Illness Time Seen by Provider: 05/06/24 19:05 Historian: patient Exam Limitations: no limitations Patient Subjective Stated Complaint: RUQ abd pain Triage Nursing Assessment: patient states that she started having right upper q uad abdominal pain this morning associated with nausea, reports that it's constant. has not taken anything for pain Physician History: The patient presented with a new onset of abdominal pain that started earlier in the day. The discomfort was localized to the right lower quadrant and occasionally radiated towards the umbilical region. The pain onset occurred while the patient was at rest, with no associated activities reported. This was the first episode of such pain, with no previous similar experiences. Accompanying the pain was a feeling of nausea, but no vomiting or diarrhea was reported. The patient denied any recent illnesses, cough, congestion, medication changes, swelling, breathing difficulties, chest pain, headaches, or dizziness. The patient had no history of abdominal surgeries and retained both the gallbladder and appendix. They denied alcohol and tobacco use and were not on any control pills. However, they had a known diagnosis of diabetes and were on medication for the same, the details of which were not specified. The last blood sugar check was on May 04, and the patient reported that their sugars usually run high. They admitted to not checking their blood sugar levels frequently and reported increased thirst and urination, but denied any burning sensation during urination. The patient noted a change in the smell of the urine but denied any fruity odor. The patient rated the pain as an eight on the pain scale and had not taken any medication for it. The pain was described as being most severe in the right lower quadrant of the abdomen. Timing/Duration: today Activities at Onset: rest Quality: sharpness Abdominal Pain Onset Location: RUQ, epigastric Pain Radiation: no radiation Severity of Pain-Max: severe Severity of Pain-Current: moderate Modifying Factors: Worsens With: coughing, movement, palpation, vomiting, [place] Associated Symptoms: fatigue, loss of appetite, nausea, vomiting, weakness, No back, No chest pain, No diaphoresis, No diarrhea, No fever/chills, No neck pain, No shortness of breath Previous symptoms: same symptoms as today Allergies/Adverse Reactions: No Known Drug Allergies Allergy (Verified 05/07/24 00:14) Hx Tetanus, Diphtheria Vaccination/Date Given: Yes Hx Influenza Vaccination/Date Given: Yes Hx Pneumococcal Vaccination/Date Given: No Immunizations Up to Date: Yes Travel Risk - International Travel Have you traveled outside of the country in past 3 weeks: No - Emerging Infectious Disease Are you exhibiting symptoms associated with any current EIDs: Yes Symptoms: Abdominal Pain - Review of Systems All Other Systems: Reviewed and Negative - Past Medical History Pertinent Past Medical History: Yes Neurological History: No Pertinent History ENT History: No Pertinent History Cardiac History: No Pertinent History Respiratory History: No Pertinent History Endocrine Medical History: Diabetes Type II Musculoskeletal History: No Pertinent History GI Medical History: No Pertinent History History: No Pertinent History Psycho-Social History: No Pertinent History Female Reproductive Disorders: No Pertinent History Other Medical History: blood transfusion for heavy menstruation - Past Surgical History Past Surgical History: No Neuro Surgical History: No Pertinent History Cardiac: No Pertinent History Respiratory: No Pertinent History Gastrointestinal: No Pertinent History Genitourinary: No Pertinent History Musculoskeletal: No Pertinent History Female Surgical History: No Pertinent History - Female History Hx Now: No - Social History Smoking Status: Never smoker Exposure to second hand smoke: No Drug Use: none Patient Lives Alone: No - Social Determinants of Health Will the patient participate in the screening: Declined to provide - Nursing Vital Signs Nursing Vital Signs: Initial Vital Signs Temperature 97.4 F 05/06/24 18:37 Pulse Rate 88 05/06/24 18:37 Respiratory Rate 16 05/06/24 18:37 Blood Pressure 152/113 05/06/24 18:37 O2 Sat by Pulse Oximetry 100 05/06/24 18:37 Pain Scale Pain Intensity 0 - Physical Exam General Appearance: no apparent distress, obese Eye Exam: eyes nml inspection Ears, Nose, Throat Exam: normal ENT inspection Neck Exam: normal inspection, non-tender, supple, full range of motion Respiratory Exam: normal breath sounds Cardiovascular Exam: regular rate/rhythm, normal heart sounds, capillary refill <2 sec, No edema Gastrointestinal/Abdomen Exam: soft, tenderness (RUQ, epigastric), No distention, No guarding, No rebound Back Exam: No CVA tenderness Neurologic Exam: alert, oriented x 3, cooperative Skin Exam: warm, dry, pale SpO2 Interpretation: normal SpO2: 100 O2 Delivery: Room Air - Course Nursing assessment & vital signs reviewed: Yes - CT Exams Abdomen/Pelvis CT Interpretation: Tele-radiologist Report, Other (signs of acute pancreatitis) Ordered Tests: Medication Summary Generic Name Dose Route Start Last Admin Trade Name Freq PRN Reason Stop Dose Admin Calcium Carbonate/Glycine 750 mg 05/07/24 15:30 05/07/24 21:48 Calcium Carbonate 750 Mg 750 Mg Tab.Chew PO 06/06/24 15:29 750 mg BID DORIS Administration Enoxaparin Sodium 40 mg 05/07/24 10:00 05/07/24 10:30 Enoxaparin Sodium 40 Mg/0.4 Ml Syringe SQ 06/06/24 09:59 40 mg DAILY DORIS Administration Fish Oil 1,000 mg 05/08/24 10:00 [place]-3 Fatty Acids/Fish Oil 1000 Mg Capsule PO 06/07/24 09:59 DAILY DORIS Hydromorphone HCl 1 mg 05/07/24 18:22 05/07/24 20:43 Hydromorphone 1 Mg/1ml Inj IV 05/12/24 18:21 1 mg Q4H PRN PRN Administration PAIN INSULIN REGULAR IN 0.9 % NACL 100 unit in 100 mls @ 9.04 mls/hr 05/06/24 20:53 05/07/24 20:42 Myxredlin 100 Unit/100 Ml Bag IV 06/05/24 20:52 0.15 unit/kg/hr .Q11H4M PRN 14 mls/hr HYPERGLYCEMIA Administration Protocol 0.1 UNIT/KG/HR Potassium Chloride/Dextrose/Sod Cl 1,000 mls @ 125 mls/hr 05/07/24 04:30 05/07/24 23:43 D5w/0.45ns W/ 20meq Kcl 1000 Ml IV 06/06/24 04:29 125 mls/hr .Q8H DORIS Administration Sodium Chloride 1,000 mls @ 125 mls/hr 05/07/24 09:15 05/07/24 19:09 Sodium Chloride 0.9% 1000 Ml IV 06/06/24 09:14 Not Given .Q8H DORIS Ceftriaxone Sodium 1 gm in 100 mls @ 200 mls/hr 05/07/24 10:00 05/07/24 10:27 Rocephin 1 Gm / 100 Ml Nacl IV 06/06/24 09:59 200 mls/hr Q24H10 DORIS Administration Ondansetron HCl 4 mg 05/06/24 23:45 05/07/24 18:36 Ondansetron Hcl 4 Mg/2 Ml Vial IV 06/05/24 23:44 4 mg Q6H PRN PRN Administration NAUSEA/VOMITING Pantoprazole Sodium 40 mg 05/07/24 08:00 05/07/24 08:40 Pantoprazole 40 Mg Vial IV 06/06/24 07:59 40 mg Q24H DORIS Administration Prochlorperazine 5 mg 05/06/24 23:50 05/07/24 00:06 Prochlorperazine Maleate 5 Mg Tablet PO 06/05/24 23:49 5 mg Q6H PRN PRN Administration NAUSEA Prochlorperazine Edisylate 5 mg 05/07/24 20:26 05/07/24 20:29 Prochlorperazine Edisylate 10 Mg/2 Ml Vial IV 06/06/24 20:25 5 mg Q6H PRN PRN Administration NAUSEA/VOMITING Simvastatin 40 mg 05/07/24 22:00 05/07/24 21:47 Simvastatin 20 Mg Tablet PO 06/06/24 21:59 40 mg HS DORIS Administration Sodium Bicarbonate 650 mg 05/07/24 17:00 05/07/24 21:48 Sodium Bicarbonate 650 Mg Tablet PO 06/06/24 16:59 650 mg BID DORIS Administration Discontinued Medications Generic Name Dose Route Start Last Admin Trade Name Freq PRN Reason Stop Dose Admin Atorvastatin Calcium 80 mg 05/07/24 22:00 Atorvastatin Calcium 40 Mg Tablet PO 06/06/24 21:59 HS DORIS Calcium Carbonate/Glycine 750 mg 05/07/24 22:00 Calcium Carbonate 750 Mg 750 Mg Tab.Chew PO 06/06/24 21:59 BID DROIS Droperidol 1.25 mg 05/06/24 19:17 05/06/24 19:41 Droperidol 5 Mg/2 Ml Vial IV 05/06/24 19:18 1.25 mg STAT ONE Administration Droperidol Confirm 05/06/24 19:34 Droperidol 5 Mg/2 Ml Vial Administered 05/06/24 19:35 Dose 5 mg .ROUTE .STK-MED ONE Hydromorphone HCl Confirm 05/06/24 23:54 Hydromorphone 1 Mg/1ml Inj Administered 05/06/24 23:55 Dose 1 mg .ROUTE .STK-MED ONE Hydromorphone HCl 0.5 mg 05/07/24 00:01 05/07/24 04:20 Hydromorphone 1 Mg/1ml Inj IV 05/12/24 00:00 0.5 mg Q4H PRN PRN Administration PAIN Sodium Chloride 1,000 mls @ 999 mls/hr 05/06/24 19:17 05/06/24 19:41 Sodium Chloride 0.9% 1000 Ml IV 05/06/24 20:17 999 mls/hr .Q1H1M STA Administration Sodium Chloride Confirm 05/06/24 19:34 Sodium Chloride 0.9% 1000 Ml Administered 05/06/24 19:35 Dose 1,000 mls @ ud .ROUTE .STK-MED ONE Ceftriaxone Sodium 2 gm in 100 mls @ 200 mls/hr 05/06/24 20:48 05/06/24 21:29 Rocephin 2 Gm/100 Ml Nacl IV 05/06/24 21:17 200 ml/hr STAT ONE 200 mls/hr Administration Ceftriaxone Sodium Confirm 05/06/24 21:06 Rocephin 2 Gm/100 Ml Nacl Administered 05/06/24 21:07 Dose 2 gm in 100 mls @ ud IV .STK-MED ONE Sodium Chloride 1,000 mls @ 125 mls/hr 05/06/24 23:15 05/06/24 23:14 Sodium Chloride 0.9% 1000 Ml IV 06/05/24 23:14 125 mls/hr .Q8H DORIS Administration Sodium Chloride Confirm 05/06/24 23:06 Sodium Chloride 0.9% 1000 Ml Administered 05/06/24 23:07 Dose 1,000 mls @ ud .ROUTE .STK-MED ONE Magnesium Sulfate/Dextrose 100 mls @ 200 mls/hr 05/07/24 11:53 05/07/24 12:03 Magnesium 1 Gm / 100 Ml D5w IV 05/07/24 12:22 200 mls/hr STAT ONE Administration Ondansetron HCl 8 mg 05/06/24 22:17 05/06/24 22:57 Ondansetron Hcl 4 Mg/2 Ml Vial IV 05/06/24 22:18 8 mg STAT ONE Administration Ondansetron HCl Confirm 05/06/24 22:56 Ondansetron Hcl 4 Mg/2 Ml Vial Administered 05/06/24 22:57 Dose 4 mg .ROUTE .STK-MED ONE Ondansetron HCl Confirm 05/06/24 22:58 Ondansetron Hcl 4 Mg/2 Ml Vial Administered 05/06/24 22:59 Dose 4 mg .ROUTE .STK-MED ONE Prochlorperazine Confirm 05/06/24 23:53 Prochlorperazine Maleate 5 Mg Tablet Administered 05/06/24 23:54 Dose 5 mg .ROUTE .STK-MED ONE Simvastatin 40 mg 05/07/24 22:00 Simvastatin 20 Mg Tablet PO 06/06/24 21:59 HS [facility] Lab/Rad Data: Laboratory Result Diagrams 05/06/24 19:31 05/06/24 19:31 Laboratory Results 05/06/24 05/06/24 05/06/24 Range/Units 21:37 19:46 19:46 WBC (3.98-10.04) x10^3/uL RBC (3.93-5.22) x10^6/uL Hgb (11.2-15.7) g/dL Hct (34.1-44.9) % MCV (79.4-94.8) fL MCH (25.6-32.2) pg MCHC (32.2-35.5) g/dL RDW (11.7-14.4) % Plt Count (182-369) x10^3/uL MPV (9.4-12.3) fL Gran % (34.0-71.1) % Immature Gran % (Auto) (0.001-0.429) % Nucleat RBC Rel Count (0.00-0.2) % Eos # (Auto) (0.04-0.36) x10^3/uL Immature Gran # (Auto) (0.001-0.031) x10^3u/L Absolute Lymphs (auto) (1.18-3.74) x10^3/uL Absolute Monos (auto) (0.24-0.86) x10^3/uL Absolute Nucleated RBC (0.00-0.012) x10^3u/L Lymphocytes % (19.3-51.7) % Monocytes % (4.7-12.5) % Eosinophils % (0.7-5.8) % Basophils % (0.1-1.2) % Absolute Granulocytes (1.56-6.13) x10^3/uL Basophils # (0.01-0.08) x10^3/uL pO2/FiO2 Ratio % VBG pH (7.32-7.42) VBG pCO2 at Pat Temp (42-55) mm/Hg VBG pO2 at Pat Temp (25-40) mm/Hg VBG HCO3 (22-28) meq/L VBG O2 Sat (Cyndi) (95-100) VBG Base Excess (-2.0-2.0) VBG Hemoglobin VBG Carboxyhemoglobin (0.0-6.9) % T HGB POC Potassium (3.5-5.1) Sodium (135-145) mmol/L Potassium (3.5-5.1) mmol/L Chloride (98-107) mmol/L Carbon Dioxide (22-30) mmol/L Anion Gap (5-15) MEQ/L BUN (7-17) mg/dL Creatinine (0.52-1.04) mg/dL Estimated GFR ML/MIN Glucose (74-106) mg/dL POC Glucometer 275 H (74 to 106) mg/dL Lactic Acid (0.4-2.0) Calcium (8.4-10.2) mg/dL Total Bilirubin (0.2-1.3) mg/dL AST (14-36) U/L ALT (0-35) U/L Alkaline Phosphatase (38-126) U/L Serum Total Protein (6.3-8.2) g/dL Albumin (3.5-5.0) g/dL Lipase (23-300) U/L Urine Color Yellow (Yellow) Urine Appearance Cloudy A (Clear) Urine pH 5.5 (4.6-8.0) Ur Specific [place] >=1.030 A (1.005-1.030) Urine Protein 30 (Negative) Urine Glucose (UA) >=1000 A (Negative) mg/dL Urine Ketones 40 A (Negative) Urine Blood Negative (Negative) Urine Nitrite Positive A (Negative) Urine Bilirubin Negative (Negative) Urine Urobilinogen 1.0 A (0.2) mg/dL Ur Leukocyte Esterase Trace A (Negative) U Hyaline Cast (Auto) NONE SEEN (0-2) /LPF Urine Microscopic RBC 0-2 (0-5) /HPF Urine Microscopic WBC 11-20 A (0-5) /HPF Ur Epithelial Cells Few (None Seen) /HPF Urine Bacteria Few A (None Seen) /HPF Urine Culture Reflexed YES (NO) Urine HCG, Qual (NEGATIVE) Chlamydia DNA Probe NOT DETECTED (NEGATIVE) N.gonorrhoeae DNA Probe NOT DETECTED (NEGATIVE) 05/06/24 05/06/24 05/06/24 Range/Units 19:45 19:31 19:31 WBC 9.4 (3.98-10.04) x10^3/uL RBC 4.69 (3.93-5.22) x10^6/uL Hgb 17.2 H (11.2-15.7) g/dL Hct 39.6 (34.1-44.9) % MCV 84.4 (79.4-94.8) fL MCH 36.7 H (25.6-32.2) pg MCHC 43.4 H (32.2-35.5) g/dL RDW 12.8 (11.7-14.4) % Plt Count 236 (182-369) x10^3/uL MPV 11.7 (9.4-12.3) fL Gran % 74.4 H (34.0-71.1) % Immature Gran % (Auto) 0.4 (0.001-0.429) % Nucleat RBC Rel Count 0.0 (0.00-0.2) % Eos # (Auto) 0.09 (0.04-0.36) x10^3/uL Immature Gran # (Auto) 0.04 H (0.001-0.031) x10^3u/L Absolute Lymphs (auto) 1.65 (1.18-3.74) x10^3/uL Absolute Monos (auto) 0.58 (0.24-0.86) x10^3/uL Absolute Nucleated RBC 0.00 (0.00-0.012) x10^3u/L Lymphocytes % 17.6 L (19.3-51.7) % Monocytes % 6.2 (4.7-12.5) % Eosinophils % 1.0 (0.7-5.8) % Basophils % 0.4 (0.1-1.2) % Absolute Granulocytes 6.97 H (1.56-6.13) x10^3/uL Basophils # 0.04 (0.01-0.08) x10^3/uL pO2/FiO2 Ratio % VBG pH (7.32-7.42) VBG pCO2 at Pat Temp (42-55) mm/Hg VBG pO2 at Pat Temp (25-40) mm/Hg VBG HCO3 (22-28) meq/L VBG O2 Sat (Cyndi) (95-100) VBG Base Excess (-2.0-2.0) VBG Hemoglobin VBG Carboxyhemoglobin (0.0-6.9) % T HGB POC Potassium (3.5-5.1) Sodium 137 (135-145) mmol/L Potassium 4.1 (3.5-5.1) mmol/L Chloride 103 (98-107) mmol/L Carbon Dioxide 21 L (22-30) mmol/L Anion Gap 16.8 H (5-15) MEQ/L BUN 8 (7-17) mg/dL Creatinine 0.53 (0.52-1.04) mg/dL Estimated GFR 126.7 ML/MIN Glucose 274 H (74-106) mg/dL POC Glucometer (74 to 106) mg/dL Lactic Acid (0.4-2.0) Calcium 8.4 (8.4-10.2) mg/dL Total Bilirubin 1.10 (0.2-1.3) mg/dL AST 47 H (14-36) U/L ALT 47 H (0-35) U/L Alkaline Phosphatase 84 (38-126) U/L Serum Total Protein 8.0 (6.3-8.2) g/dL Albumin 3.8 (3.5-5.0) g/dL Lipase 278 (23-300) U/L Urine Color (Yellow) Urine Appearance (Clear) Urine pH (4.6-8.0) Ur Specific [place] (1.005-1.030) Urine Protein (Negative) Urine Glucose (UA) (Negative) mg/dL Urine Ketones (Negative) Urine Blood (Negative) Urine Nitrite (Negative) Urine Bilirubin (Negative) Urine Urobilinogen (0.2) mg/dL Ur Leukocyte Esterase (Negative) U Hyaline Cast (Auto) (0-2) /LPF Urine Microscopic RBC (0-5) /HPF Urine Microscopic WBC (0-5) /HPF Ur Epithelial Cells (None Seen) /HPF Urine Bacteria (None Seen) /HPF Urine Culture Reflexed (NO) Urine HCG, Qual NEGATIVE (NEGATIVE) Chlamydia DNA Probe (NEGATIVE) N.gonorrhoeae DNA Probe (NEGATIVE) 05/06/24 05/06/24 Range/Units 19:19 19:17 WBC (3.98-10.04) x10^3/uL RBC (3.93-5.22) x10^6/uL Hgb (11.2-15.7) g/dL Hct (34.1-44.9) % MCV (79.4-94.8) fL MCH (25.6-32.2) pg MCHC (32.2-35.5) g/dL RDW (11.7-14.4) % Plt Count (182-369) x10^3/uL MPV (9.4-12.3) fL Gran % (34.0-71.1) % Immature Gran % (Auto) (0.001-0.429) % Nucleat RBC Rel Count (0.00-0.2) % Eos # (Auto) (0.04-0.36) x10^3/uL Immature Gran # (Auto) (0.001-0.031) x10^3u/L Absolute Lymphs (auto) (1.18-3.74) x10^3/uL Absolute Monos (auto) (0.24-0.86) x10^3/uL Absolute Nucleated RBC (0.00-0.012) x10^3u/L Lymphocytes % (19.3-51.7) % Monocytes % (4.7-12.5) % Eosinophils % (0.7-5.8) % Basophils % (0.1-1.2) % Absolute Granulocytes (1.56-6.13) x10^3/uL Basophils # (0.01-0.08) x10^3/uL pO2/FiO2 Ratio 21.0 % VBG pH 7.39 (7.32-7.42) VBG pCO2 at Pat Temp 48 (42-55) mm/Hg VBG pO2 at Pat Temp 36 (25-40) mm/Hg VBG HCO3 29.1 H* (22-28) meq/L VBG O2 Sat (Cyndi) 72.3 L (95-100) VBG Base Excess 3.2 H (-2.0-2.0) VBG Hemoglobin 14.8 VBG Carboxyhemoglobin 3.2 (0.0-6.9) % T HGB POC Potassium 4.7 (3.5-5.1) Sodium (135-145) mmol/L Potassium (3.5-5.1) mmol/L Chloride (98-107) mmol/L Carbon Dioxide (22-30) mmol/L Anion Gap (5-15) MEQ/L BUN (7-17) mg/dL Creatinine (0.52-1.04) mg/dL Estimated GFR ML/MIN Glucose (74-106) mg/dL POC Glucometer (74 to 106) mg/dL Lactic Acid 1.3 (0.4-2.0) Calcium (8.4-10.2) mg/dL Total Bilirubin (0.2-1.3) mg/dL AST (14-36) U/L ALT (0-35) U/L Alkaline Phosphatase (38-126) U/L Serum Total Protein (6.3-8.2) g/dL Albumin (3.5-5.0) g/dL Lipase (23-300) U/L Urine Color (Yellow) Urine Appearance (Clear) Urine pH (4.6-8.0) Ur Specific [place] (1.005-1.030) Urine Protein (Negative) Urine Glucose (UA) (Negative) mg/dL Urine Ketones (Negative) Urine Blood (Negative) Urine Nitrite (Negative) Urine Bilirubin (Negative) Urine Urobilinogen (0.2) mg/dL Ur Leukocyte Esterase (Negative) U Hyaline Cast (Auto) (0-2) /LPF Urine Microscopic RBC (0-5) /HPF Urine Microscopic WBC (0-5) /HPF Ur Epithelial Cells (None Seen) /HPF Urine Bacteria (None Seen) /HPF Urine Culture Reflexed (NO) Urine HCG, Qual (NEGATIVE) Chlamydia DNA Probe (NEGATIVE) N.gonorrhoeae DNA Probe (NEGATIVE) - Progress Progress: improved Progress Note: Patient in DKA, K 4.1, will start insulin gtt and IVF. Pain and nausea controlled with Droperidol. Lipase wnl. Will discuss admission with hospitalist. Patient accepted for admission to treat DKA by Dr. Elliot Boucher at 2100. Discussed with Dr.: Other (Elliot Boucher) Will see patient in: hospital (observation) Counseled pt/family regarding: lab results, diagnosis, need for follow-up, rad results Medical Desision Making - Discussion of managment Care discussed with:: hospitalist Reviewed:: Test results Agreed on:: place in obs Will see patient: in hospital - Diagnostic Testing Diagnostic test were ordered, analyzed, and reviewed by me: Yes Radiological Interpretation: Interpreted by me, Reviewed by me, Teleradiologist Report - Risk of complications The pt has a mod risk of morbidity or mortality based on: Need for prescription drug management The pt has a high risk of morbidity or mortality based on: Decision regarding hospitilization or escalation of hosp level of care - Departure Departure Disposition: Observation Clinical Impression: Abdominal pain, Diabetes DKA (diabetic ketoacidosis) Qualifiers: Diabetes mellitus type: type 2 Condition: Stable Critical Care Time: No
[2024-05-06] MEDS ORDERED: Sodium Chloride 0.9% 1000 ML 1,000 ML ONE ×2 (19:34→23:06)
[2024-05-06 19:35] LABS: VBG BASE EXCESS 3.2 (-2.0-2.0); VBG CARBOXYHEMOGLOBIN 3.2 % T HGB (0.0-6.9); VBG HCO3- 29.1 meq/L (22-28); VBG HEMOGLOBIN 14.8; VBG O2 SATURATION 72.3 (95-100); VBG POTASSIUM 4.7 (3.5-5.1); VBG pH 7.39 (7.32-7.42)
[2024-05-06] MEDS: Sodium Chloride 0.9% 1000 ML 1,000 ML IV STA (19:41)
[2024-05-06 19:50] LABS: ALBUMIN 3.8 g/dL (3.5-5.0); ANION GAP 16.8 MEQ/L (5-15); BILIRUBIN,TOTAL 1.1 mg/dL (0.2-1.3); Calcium 8.4 mg/dL (8.4-10.2); Creatinine 1 0.53 mg/dL (0.52-1.04); EST GLOMERULAR FILTRATION RATE 126.7 ML/MIN; Potassium 4.1 mmol/L (3.5-5.1)
[2024-05-06 19:53] LABS: HCG URINE TEST NEGATIVE (NEGATIVE)
[2024-05-06 19:54] LABS: Absolute Neutrophil Ct (ANC) 6.97 x10^3/uL (1.56-6.13); BASOPHIL % 0.4 % (0.1-1.2); Basophil (Absolute #) 0.04 x10^3/uL (0.01-0.08); Eosinophil (Absolute #) 0.09 x10^3/uL (0.04-0.36); Hematocrit 39.6 % (34.1-44.9); Hemoglobin 17.2 g/dL (11.2-15.7); IMMATURE GRAN # 0.04 x10^3u/L (0.001-0.031); IMMATURE GRAN % 0.4 % (0.001-0.429); Lymphocyte (Absolute #) 1.65 x10^3/uL (1.18-3.74); Lymphocytes % 17.6 % (19.3-51.7); Mean Cell Volume 84.4 fL (79.4-94.8); Mean Corpuscular Hemoglobin 36.7 pg (25.6-32.2); Mean Corpuscular Hgb Concent. 43.4 g/dL (32.2-35.5); Mean Platelet Volume 11.7 fL (9.4-12.3); Monocyte (Absolute #) 0.58 x10^3/uL (0.24-0.86); Monocytes % 6.2 % (4.7-12.5); Neutrophil % 74.4 % (34.0-71.1); Platelet Count 236 x10^3/uL (182-369); Red Blood Count 4.69 x10^6/uL (3.93-5.22); Red Cell Distribution Width 12.8 % (11.7-14.4)
[2024-05-06 19:56] LABS: White Blood Count 9.4 x10^3/uL (3.98-10.04)
[2024-05-06 20:09] LABS: ADD URINE CULTURE? YES (NO); Appearance Cloudy (Clear); Bacteria Few /HPF (None Seen); Bilirubin Negative (Negative); Blood Negative (Negative); Epithelial Cells Few /HPF (None Seen); Glucose, Urine >=1000 mg/dL (Negative); Hyaline Casts NONE SEEN /LPF (0-2); Ketones 40 (Negative); Leukocyte Esterase Trace (Negative); Nitrite Positive (Negative); Ph 5.5 (4.6-8.0); Protein,Urine Dip 30 (Negative); RBC 0-2 /HPF (0-5); Specific Gravity >=1.030 (1.005-1.030)
[2024-05-06 21:04] LABS: MAGNESIUM 1.7 mg/dL (1.6-2.3); PHOSPHOROUS 3.4 mg/dL (2.5-4.5)
[2024-05-06] MEDS ORDERED: ROCEPHIN 2 GM/100 ML NACL 2 GM/100 ML IVPB IV ONE (21:06)
[2024-05-06 21:19] LABS: CHLAMYDIA DNA NOT DETECTED (NEGATIVE); GC DNA Probe NOT DETECTED (NEGATIVE)
[2024-05-06] MEDS: ROCEPHIN 2 GM/100 ML NACL 2 GM/100 ML IVPB IV ONE (21:29)
--- NOTE | 2024-05-06 21:33 | PCM.HP ---
History of Present Illness - Chief Complaint Chief Complaint: DKA, UTI, Acute pancreatitis History of Present Illness: is a 33 year old female who has had multiple admissions for DKA presents with abdominal discomfort, nausea, vomiting and found to be in mild DKA and a probable UTI. No fevers, chills. CT of abdomen shows acute pancreatitis. - Review of Systems Constitutional: No Fever, No Chills Eyes: No Symptoms Ears, Nose, & Throat: No Symptoms Respiratory: No Cough, No Short Of Breath Cardiac: No Chest Pain, No Edema, No Syncope Abdominal/Gastrointestinal: No Abdominal Pain, No Nausea, No Vomiting, No Diarrhea Genitourinary Symptoms: No Dysuria Musculoskeletal: No Back Pain, No Neck Pain Skin: No Rash Neurological: No Dizziness, No Focal Weakness, No Sensory Changes Psychological: No Symptoms Endocrine: No Symptoms Hematologic/Lymphatic: No Symptoms Immunological/Allergic: No Symptoms Medications & Allergies Home Medications: Home Medication List Insulin Glargine [Lantus Insulin] 50 unit SQ HS 30 Days #1 unit 09/21/23 [Rx Confirmed 05/06/24] Insulin Lispro [Humalog Kwikpen U-100] 1 - 10 unit SQ TIDPRN #1 09/21/23 [Rx Confirmed 05/06/24] Pen Needle, Diabetic [Pen Needle] 1 each UD #100 [facility] [place]23 [Rx Confirmed 05/06/24] Allergies/Adverse Reactions: Allergies Allergy/AdvReac Type Severity Reaction Status Date / Time No Known Drug Allergies Allergy Verified 05/06/24 18:44 - Past Medical History Past Medical History: Yes Neurological History: No Pertinent History ENT History: No Pertinent History Cardiac History: No Pertinent History Respiratory History: No Pertinent History Endocrine Medical History: Diabetes Type II Musculoskelatal History: No Pertinent History GI Medical History: No Pertinent History History: No Pertinent History Pyscho-Social History: No Pertinent History Reproductive Disorders: No Pertinent History Comment: blood transfusion for heavy menstruation - Female History Are you now?: No - Past Surgical History Past Surgical History: No Neuro Surgical History: No Pertinent History Cardiac History: No Pertinent History Respiratory Surgery: No Pertinent History GI Surgical History: No Pertinent History Genitourinary Surgical Hx: No Pertinent History Musculskeletal Surgical Hx: No Pertinent History Female Surgical History: No Pertinent History - Social History Smoking Status: Never smoker Exposure to second hand smoke: No Alcohol: None Drug Use: none - Social Determinants of Health Will the patient participate in the screening: Declined to provide - Physical Exam Vital Signs: Vital Signs - 24 hr Temp Pulse Resp BP BP Pulse Ox 05/06/24 21:14 100 05/06/24 21:00 77 16 120/82 97 05/06/24 20:48 128/86 99 05/06/24 20:00 72 18 101/77 95 05/06/24 19:30 76 16 129/97 95 05/06/24 19:00 79 18 123/96 94 L 05/06/24 18:37 97.4 F 88 16 152/113 100 General Appearance: no apparent distress, alert Neurologic Exam: alert, oriented x 3, cooperative, normal mood/affect, nml cerebellar function, nml station & gait, sensation nml, No motor deficits Eye Exam: PERRL/EOMI, eyes nml inspection Ears, Nose, Throat Exam: normal ENT inspection, TMs normal, pharynx normal, moist mucous membranes Neck Exam: normal inspection, non-tender, supple, full range of motion Respiratory Exam: normal breath sounds, lungs clear, No respiratory distress Cardiovascular Exam: regular rate/rhythm, normal heart sounds, normal peripheral pulses Gastrointestinal/Abdomen Exam: soft, normal bowel sounds, No tenderness, No mass Back Exam: normal inspection, normal range of motion, No CVA tenderness, No vertebral tenderness Extremity Exam: normal inspection, normal range of motion, pelvis stable Skin Exam: normal color, warm, dry, No rash Lymphatic Exam: No adenopathy Results - Labs Lab/Micro Results: Lab Results-Last 24 Hours 05/06/24 05/06/24 05/06/24 Range/Units 19:17 19:19 19:31 WBC 9.4 (3.98-10.04) x10^3/uL RBC 4.69 (3.93-5.22) x10^6/uL Hgb 17.2 H (11.2-15.7) g/dL Hct 39.6 (34.1-44.9) % MCV 84.4 (79.4-94.8) fL MCH 36.7 H (25.6-32.2) pg MCHC 43.4 H (32.2-35.5) g/dL RDW 12.8 (11.7-14.4) % Plt Count 236 (182-369) x10^3/uL MPV 11.7 (9.4-12.3) fL Gran % 74.4 H (34.0-71.1) % Immature Gran % (Auto) 0.4 (0.001-0.429) % Nucleat RBC Rel Count 0.0 (0.00-0.2) % Eos # (Auto) 0.09 (0.04-0.36) x10^3/uL Immature Gran # (Auto) 0.04 H (0.001-0.031) x10^3u/L Absolute Lymphs (auto) 1.65 (1.18-3.74) x10^3/uL Absolute Monos (auto) 0.58 (0.24-0.86) x10^3/uL Absolute Nucleated RBC 0.00 (0.00-0.012) x10^3u/L Lymphocytes % 17.6 L (19.3-51.7) % Monocytes % 6.2 (4.7-12.5) % Eosinophils % 1.0 (0.7-5.8) % Basophils % 0.4 (0.1-1.2) % Absolute Granulocytes 6.97 H (1.56-6.13) x10^3/uL Basophils # 0.04 (0.01-0.08) x10^3/uL pO2/FiO2 Ratio 21.0 % VBG pH 7.39 (7.32-7.42) VBG pCO2 at Pat Temp 48 (42-55) mm/Hg VBG pO2 at Pat Temp 36 (25-40) mm/Hg VBG HCO3 29.1 H* (22-28) meq/L VBG O2 Sat (Cyndi) 72.3 L (95-100) VBG Base Excess 3.2 H (-2.0-2.0) VBG Hemoglobin 14.8 VBG Carboxyhemoglobin 3.2 (0.0-6.9) % T HGB POC Potassium 4.7 (3.5-5.1) Sodium (135-145) mmol/L Potassium (3.5-5.1) mmol/L Chloride (98-107) mmol/L Carbon Dioxide (22-30) mmol/L Anion Gap (5-15) MEQ/L BUN (7-17) mg/dL Creatinine (0.52-1.04) mg/dL Estimated GFR ML/MIN Glucose (74-106) mg/dL Lactic Acid 1.3 (0.4-2.0) Calcium (8.4-10.2) mg/dL Phosphorus (2.5-4.5) mg/dL Magnesium (1.6-2.3) mg/dL Total Bilirubin (0.2-1.3) mg/dL AST (14-36) U/L ALT (0-35) U/L Alkaline Phosphatase (38-126) U/L Serum Total Protein (6.3-8.2) g/dL Albumin (3.5-5.0) g/dL Lipase (23-300) U/L Urine Color (Yellow) Urine Appearance (Clear) Urine pH (4.6-8.0) Ur Specific [place] (1.005-1.030) Urine Protein (Negative) Urine Glucose (UA) (Negative) mg/dL Urine Ketones (Negative) Urine Blood (Negative) Urine Nitrite (Negative) Urine Bilirubin (Negative) Urine Urobilinogen (0.2) mg/dL Ur Leukocyte Esterase (Negative) U Hyaline Cast (Auto) (0-2) /LPF Urine Microscopic RBC (0-5) /HPF Urine Microscopic WBC (0-5) /HPF Ur Epithelial Cells (None Seen) /HPF Urine Bacteria (None Seen) /HPF Urine Culture Reflexed (NO) Urine HCG, Qual (NEGATIVE) Chlamydia DNA Probe (NEGATIVE) N.gonorrhoeae DNA Probe (NEGATIVE) 05/06/24 05/06/24 05/06/24 Range/Units 19:31 19:45 19:46 WBC (3.98-10.04) x10^3/uL RBC (3.93-5.22) x10^6/uL Hgb (11.2-15.7) g/dL Hct (34.1-44.9) % MCV (79.4-94.8) fL MCH (25.6-32.2) pg MCHC (32.2-35.5) g/dL RDW (11.7-14.4) % Plt Count (182-369) x10^3/uL MPV (9.4-12.3) fL Gran % (34.0-71.1) % Immature Gran % (Auto) (0.001-0.429) % Nucleat RBC Rel Count (0.00-0.2) % Eos # (Auto) (0.04-0.36) x10^3/uL Immature Gran # (Auto) (0.001-0.031) x10^3u/L Absolute Lymphs (auto) (1.18-3.74) x10^3/uL Absolute Monos (auto) (0.24-0.86) x10^3/uL Absolute Nucleated RBC (0.00-0.012) x10^3u/L Lymphocytes % (19.3-51.7) % Monocytes % (4.7-12.5) % Eosinophils % (0.7-5.8) % Basophils % (0.1-1.2) % Absolute Granulocytes (1.56-6.13) x10^3/uL Basophils # (0.01-0.08) x10^3/uL pO2/FiO2 Ratio % VBG pH (7.32-7.42) VBG pCO2 at Pat Temp (42-55) mm/Hg VBG pO2 at Pat Temp (25-40) mm/Hg VBG HCO3 (22-28) meq/L VBG O2 Sat (Cyndi) (95-100) VBG Base Excess (-2.0-2.0) VBG Hemoglobin VBG Carboxyhemoglobin (0.0-6.9) % T HGB POC Potassium (3.5-5.1) Sodium 137 (135-145) mmol/L Potassium 4.1 (3.5-5.1) mmol/L Chloride 103 (98-107) mmol/L Carbon Dioxide 21 L (22-30) mmol/L Anion Gap 16.8 H (5-15) MEQ/L BUN 8 (7-17) mg/dL Creatinine 0.53 (0.52-1.04) mg/dL Estimated GFR 126.7 ML/MIN Glucose 274 H (74-106) mg/dL Lactic Acid (0.4-2.0) Calcium 8.4 (8.4-10.2) mg/dL Phosphorus (2.5-4.5) mg/dL Magnesium (1.6-2.3) mg/dL Total Bilirubin 1.10 (0.2-1.3) mg/dL AST 47 H (14-36) U/L ALT 47 H (0-35) U/L Alkaline Phosphatase 84 (38-126) U/L Serum Total Protein 8.0 (6.3-8.2) g/dL Albumin 3.8 (3.5-5.0) g/dL Lipase 278 (23-300) U/L Urine Color (Yellow) Urine Appearance (Clear) Urine pH (4.6-8.0) Ur Specific [place] (1.005-1.030) Urine Protein (Negative) Urine Glucose (UA) (Negative) mg/dL Urine Ketones (Negative) Urine Blood (Negative) Urine Nitrite (Negative) Urine Bilirubin (Negative) Urine Urobilinogen (0.2) mg/dL Ur Leukocyte Esterase (Negative) U Hyaline Cast (Auto) (0-2) /LPF Urine Microscopic RBC (0-5) /HPF Urine Microscopic WBC (0-5) /HPF Ur Epithelial Cells (None Seen) /HPF Urine Bacteria (None Seen) /HPF Urine Culture Reflexed (NO) Urine HCG, Qual NEGATIVE (NEGATIVE) Chlamydia DNA Probe NOT DETECTED (NEGATIVE) N.gonorrhoeae DNA Probe NOT DETECTED (NEGATIVE) 05/06/24 05/06/24 Range/Units 19:46 Unknown WBC (3.98-10.04) x10^3/uL RBC (3.93-5.22) x10^6/uL Hgb (11.2-15.7) g/dL Hct (34.1-44.9) % MCV (79.4-94.8) fL MCH (25.6-32.2) pg MCHC (32.2-35.5) g/dL RDW (11.7-14.4) % Plt Count (182-369) x10^3/uL MPV (9.4-12.3) fL Gran % (34.0-71.1) % Immature Gran % (Auto) (0.001-0.429) % Nucleat RBC Rel Count (0.00-0.2) % Eos # (Auto) (0.04-0.36) x10^3/uL Immature Gran # (Auto) (0.001-0.031) x10^3u/L Absolute Lymphs (auto) (1.18-3.74) x10^3/uL Absolute Monos (auto) (0.24-0.86) x10^3/uL Absolute Nucleated RBC (0.00-0.012) x10^3u/L Lymphocytes % (19.3-51.7) % Monocytes % (4.7-12.5) % Eosinophils % (0.7-5.8) % Basophils % (0.1-1.2) % Absolute Granulocytes (1.56-6.13) x10^3/uL Basophils # (0.01-0.08) x10^3/uL pO2/FiO2 Ratio % VBG pH (7.32-7.42) VBG pCO2 at Pat Temp (42-55) mm/Hg VBG pO2 at Pat Temp (25-40) mm/Hg VBG HCO3 (22-28) meq/L VBG O2 Sat (Cyndi) (95-100) VBG Base Excess (-2.0-2.0) VBG Hemoglobin VBG Carboxyhemoglobin (0.0-6.9) % T HGB POC Potassium (3.5-5.1) Sodium (135-145) mmol/L Potassium (3.5-5.1) mmol/L Chloride (98-107) mmol/L Carbon Dioxide (22-30) mmol/L Anion Gap (5-15) MEQ/L BUN (7-17) mg/dL Creatinine (0.52-1.04) mg/dL Estimated GFR ML/MIN Glucose (74-106) mg/dL Lactic Acid (0.4-2.0) Calcium (8.4-10.2) mg/dL Phosphorus 3.4 (2.5-4.5) mg/dL Magnesium 1.7 (1.6-2.3) mg/dL Total Bilirubin (0.2-1.3) mg/dL AST (14-36) U/L ALT (0-35) U/L Alkaline Phosphatase (38-126) U/L Serum Total Protein (6.3-8.2) g/dL Albumin (3.5-5.0) g/dL Lipase (23-300) U/L Urine Color Yellow (Yellow) Urine Appearance Cloudy A (Clear) Urine pH 5.5 (4.6-8.0) Ur Specific [place] >=1.030 A (1.005-1.030) Urine Protein 30 (Negative) Urine Glucose (UA) >=1000 A (Negative) mg/dL Urine Ketones 40 A (Negative) Urine Blood Negative (Negative) Urine Nitrite Positive A (Negative) Urine Bilirubin Negative (Negative) Urine Urobilinogen 1.0 A (0.2) mg/dL Ur Leukocyte Esterase Trace A (Negative) U Hyaline Cast (Auto) NONE SEEN (0-2) /LPF Urine Microscopic RBC 0-2 (0-5) /HPF Urine Microscopic WBC 11-20 A (0-5) /HPF Ur Epithelial Cells Few (None Seen) /HPF Urine Bacteria Few A (None Seen) /HPF Urine Culture Reflexed YES (NO) Urine HCG, Qual (NEGATIVE) Chlamydia DNA Probe (NEGATIVE) N.gonorrhoeae DNA Probe (NEGATIVE) - Radiology Impressions Radiology Exams & Impressions: Radiology Procedures Category Date Time Status ABDOMEN AND PELVIS W CONTRAST [CT] Stat Exams 05/06/24 19:18 Taken Assessment/Plan (1) DKA (diabetic ketoacidosis) Current Visit: Yes Status: Acute Assessment & Plan: 1. Insulin gtt started in the ED 2. Fluids started in the ED 3. For UTI - started on Ceftriaxone Code(s): E11.10 - TYPE 2 DIABETES MELLITUS WITH KETOACIDOSIS WITHOUT COMA (2) Acute pancreatitis Current Visit: No Status: Acute Assessment & Plan: 1. NPO 2. IVF 3. Pain relief as needed Code(s): K85.90 - ACUTE PANCREATITIS WITHOUT NECROSIS OR INFECTION, UNSP Telemedicine Encounter - Telemedicine Encounter Telemedicine Encounter: "The entirety of this encounter was performed via Telemedicine" This visit was performed using real-time audio and video connection between my location and thepatients locationwith the assistance of a surrogateat the patients location. Written or verbal consent was obtained from the patient/guardian to perform this visit [email or web address]. Any patient questions regarding the telemedicine interaction were answered.
--- NOTE | 2024-05-06 22:40 | XRAY ---
CLINICAL HISTORY: abd pain COMPARISON: None. TECHNIQUE: CT scan of the abdomen and pelvis was performed with IV contrast. Coronal and sagittal reconstructive images were also obtained. One of the following dose reduction techniques was utilized for this exam.Automated exposure control, adjustment of the mA and/or kV according to patient size, and use of iterative reconstruction. FINDINGS: Sections of lower thorax show no significant abnormality. Abdomen: Head and uncinate process of the pancreas are enlarged and edematous with significant surrounding fat stranding and mild fluid collection, representing acute pancreatitis. The body and tail of pancreas appear normal. The main pancreatic duct is normal in caliber. Mild reactive edema of adjacent duodenal wall also noted. The liver is of average size. No focal or diffuse parenchymal abnormality. The portal vein, intrahepatic biliary radicals and the bile ducts are normal. The gallbladder is distended. There is no evidence of wall thickening/ pericholecystic collection. The spleen, adrenal glands are unremarkable. The kidneys are normal in size and shape. No calculi or hydronephrosis. The ascending colon, the transverse colon, the descending colon, visualized small bowel loops are unremarkable. There is no CT evidence of acute appendicitis. Pelvis: The urinary bladder is unremarkable. The rectosigmoid colon is unremarkable. The uterus appears unremarkable. 30 x 22 mm right ovarian cyst and 21 x 20 mm left ovarian cyst noted. No evidence of pelvic lymphadenopathy. No definite bony abnormalities could be depicted. IMPRESSION: Enlarged and edematous head and uncinate process of pancreas with significant surrounding fat stranding and mild fluid collection, representing acute pancreatitis. Modified CT severity index - 4 [facility] was called at [phone] at 9:30 PM [employer], 05/06/2024 and YANN Porter was informed about the medical findings in the report. Electronically Signed by: Oralia Izquierdo MD. (05/06/2024 22:35:13 EDT)
[2024-05-06] MEDS ORDERED: Zofran 4 MG/2 ML VIAL ONE ×2 (22:56→22:58)
[2024-05-06] MEDS: Zofran 4 MG/2 ML VIAL IV ONE (22:57)
[2024-05-06] MEDS: MYXREDLIN 100 UNIT/100 ML BAG 100 UNIT/100 ML PLAST..BAG IV PRN (22:57)
[2024-05-06] MEDS: Sodium Chloride 0.9% 1000 ML 1,000 ML IV SCH (23:14)
[2024-05-06] MEDS ORDERED: Compazine 5 MG ONE (23:53)
[2024-05-06] MEDS ORDERED: Hydromorphone 1 mg/ml Injection ONE (23:54)
[2024-05-07] MEDS: Hydromorphone 1 mg/ml Injection IV PRN ×2 (00:05→20:43)
[2024-05-07] MEDS: Compazine 5 MG PO PRN (00:06)
[2024-05-07] MEDS: Zofran 4 MG/2 ML VIAL IV PRN (04:21)
[2024-05-07] MEDS: D5W/0.45NS W/ 20mEq KCl 1000 ML 1,000 ML IV SCH (04:21)
[2024-05-07 04:54] LABS: Hematocrit 41.9 % (34.1-44.9); Hemoglobin 16.3 g/dL (11.2-15.7); Mean Cell Volume 85.3 fL (79.4-94.8); Mean Corpuscular Hemoglobin 33.2 pg (25.6-32.2); Mean Platelet Volume 11.4 fL (9.4-12.3); Platelet Count 213 x10^3/uL (182-369); Red Blood Count 4.91 x10^6/uL (3.93-5.22); Red Cell Distribution Width 13.1 % (11.7-14.4); White Blood Count 12.3 x10^3/uL (3.98-10.04)
[2024-05-07 04:56] LABS: Mean Corpuscular Hgb Concent. 38.9 g/dL (32.2-35.5)
[2024-05-07 05:09] LABS: ANION GAP 18.5 MEQ/L (5-15); Calcium 6.6 mg/dL (8.4-10.2); Creatinine 1 0.41 mg/dL (0.52-1.04); EST GLOMERULAR FILTRATION RATE 134.8 ML/MIN; Potassium 3.9 mmol/L (3.5-5.1)
--- NOTE | 2024-05-07 07:46 | PCM.NOTE ---
Date and Time: 05/07/24 0740 Subjective Assessment: 05/07/24 is a 33 year old female with PMHX of Type II DM and chronic obesity. She was seen in ER on 05/06/24 for RUQ abd. pain with nausea. She explained she has been out of her humalog and lantus for 1 month now as her PCP will not fill. She does admit to missing an appointment. She wants to find a new PCP she reports. She was found to be in DKA and placed on insulin gtt. She has had multiple admissions for DKA in the past. UA shows a probable UTI- ceftriaxone started. CT of abdomen shows acute pancreatitis. Pt was placed NPO and IVF started. She is receiving IV pain meds for pancreatitits. Today anion gap 18.5- continue with insulin gtt and DKA protocol. She continues to have abd. pain. N/V improved. She denies CP, SOB, N/V/D. - Review of Systems Constitutional: No Fever, No Chills Eyes: No Symptoms Ears, Nose, & Throat: No Symptoms Respiratory: No Cough, No Short Of Breath Cardiac: No Chest Pain, No Edema, No Syncope Abdominal/Gastrointestinal: Abdominal Pain, No Nausea, No Vomiting, No Diarrhea Genitourinary Symptoms: No Dysuria Musculoskeletal: No Back Pain, No Neck Pain Skin: No Rash Neurological: No Dizziness, No Focal Weakness, No Sensory Changes Psychological: No Symptoms Endocrine: No Symptoms Hematologic/Lymphatic: No Symptoms Immunological/Allergic: No Symptoms Objective Exam General Appearance: no apparent distress, alert, obese Neurologic Exam: alert, oriented x 3, cooperative, normal mood/affect, nml cerebellar function, sensation nml, No motor deficits Skin Exam: normal color, warm, dry Eye Exam: PERRL, EOMI, eyes nml inspection Ears, Nose, Throat Exam: normal ENT inspection, pharynx normal, moist mucous membranes Neck Exam: normal inspection, non-tender, supple, full range of motion Respiratory Exam: normal breath sounds, lungs clear, No respiratory distress Cardiovascular Exam: regular rate/rhythm, normal heart sounds Gastrointestinal/Abdomen Exam: soft, tenderness (LUQ, RUQ with palpation), No mass Extremity Exam: normal inspection, normal range of motion Back Exam: normal inspection, normal range of motion, No CVA tenderness, No vertebral tenderness Pelvic Exam: deferred Rectal Exam: deferred Objective Data Vital Signs: Vital Signs - 24 hr Temp Pulse Resp BP BP Pulse Ox 05/07/24 04:25 88 21 110/68 91 L 05/07/24 04:00 91 H 05/07/24 01:00 80 30 H 105/73 91 L 05/07/24 00:00 97.6 F 79 19 116/87 128/78 91 L 05/06/24 23:07 82 05/06/24 23:06 100 05/06/24 23:00 85 16 118/75 95 05/06/24 22:34 124/80 96 05/06/24 22:00 85 16 120/80 95 05/06/24 21:30 83 17 114/84 95 05/06/24 21:00 77 16 120/82 97 05/06/24 20:48 128/86 99 05/06/24 20:00 72 18 101/77 95 05/06/24 19:30 76 16 129/97 95 05/06/24 19:00 79 18 123/96 94 L 05/06/24 18:37 97.4 F 88 16 152/113 100 Pain Assessment - Last Documented Pain Intensity 5 Pain Scale Used 0-10 Pain Scale Intake and Output: Intake & Output 05/04/24 05/05/24 05/06/24 05/07/24 11:59 11:59 11:59 11:59 Intake Total 493 Output Total 225 Balance 268 Weight 87 kg Lab Results: Lab Results-Last 24 Hours 05/06/24 05/06/24 05/06/24 Range/Units 19:17 19:19 19:31 WBC 9.4 (3.98-10.04) x10^3/uL RBC 4.69 (3.93-5.22) x10^6/uL Hgb 17.2 H (11.2-15.7) g/dL Hct 39.6 (34.1-44.9) % MCV 84.4 (79.4-94.8) fL MCH 36.7 H (25.6-32.2) pg MCHC 43.4 H (32.2-35.5) g/dL RDW 12.8 (11.7-14.4) % Plt Count 236 (182-369) x10^3/uL MPV 11.7 (9.4-12.3) fL Gran % 74.4 H (34.0-71.1) % Immature Gran % (Auto) 0.4 (0.001-0.429) % Nucleat RBC Rel Count 0.0 (0.00-0.2) % Eos # (Auto) 0.09 (0.04-0.36) x10^3/uL Immature Gran # (Auto) 0.04 H (0.001-0.031) x10^3u/L Absolute Lymphs (auto) 1.65 (1.18-3.74) x10^3/uL Absolute Monos (auto) 0.58 (0.24-0.86) x10^3/uL Absolute Nucleated RBC 0.00 (0.00-0.012) x10^3u/L Lymphocytes % 17.6 L (19.3-51.7) % Monocytes % 6.2 (4.7-12.5) % Eosinophils % 1.0 (0.7-5.8) % Basophils % 0.4 (0.1-1.2) % Absolute Granulocytes 6.97 H (1.56-6.13) x10^3/uL Basophils # 0.04 (0.01-0.08) x10^3/uL pO2/FiO2 Ratio 21.0 % VBG pH 7.39 (7.32-7.42) VBG pCO2 at Pat Temp 48 (42-55) mm/Hg VBG pO2 at Pat Temp 36 (25-40) mm/Hg VBG HCO3 29.1 H* (22-28) meq/L VBG O2 Sat (Cyndi) 72.3 L (95-100) VBG Base Excess 3.2 H (-2.0-2.0) VBG Hemoglobin 14.8 VBG Carboxyhemoglobin 3.2 (0.0-6.9) % T HGB POC Potassium 4.7 (3.5-5.1) Sodium (135-145) mmol/L Potassium (3.5-5.1) mmol/L Chloride (98-107) mmol/L Carbon Dioxide (22-30) mmol/L Anion Gap (5-15) MEQ/L BUN (7-17) mg/dL Creatinine (0.52-1.04) mg/dL Estimated GFR ML/MIN Glucose (74-106) mg/dL POC Glucometer (74 to 106) mg/dL Lactic Acid 1.3 (0.4-2.0) Calcium (8.4-10.2) mg/dL Phosphorus (2.5-4.5) mg/dL Magnesium (1.6-2.3) mg/dL Total Bilirubin (0.2-1.3) mg/dL AST (14-36) U/L ALT (0-35) U/L Alkaline Phosphatase (38-126) U/L Serum Total Protein (6.3-8.2) g/dL Albumin (3.5-5.0) g/dL Lipase (23-300) U/L Urine Color (Yellow) Urine Appearance (Clear) Urine pH (4.6-8.0) Ur Specific [place] (1.005-1.030) Urine Protein (Negative) Urine Glucose (UA) (Negative) mg/dL Urine Ketones (Negative) Urine Blood (Negative) Urine Nitrite (Negative) Urine Bilirubin (Negative) Urine Urobilinogen (0.2) mg/dL Ur Leukocyte Esterase (Negative) U Hyaline Cast (Auto) (0-2) /LPF Urine Microscopic RBC (0-5) /HPF Urine Microscopic WBC (0-5) /HPF Ur Epithelial Cells (None Seen) /HPF Urine Bacteria (None Seen) /HPF Urine Culture Reflexed (NO) Urine HCG, Qual (NEGATIVE) Chlamydia DNA Probe (NEGATIVE) N.gonorrhoeae DNA Probe (NEGATIVE) 05/06/24 05/06/24 05/06/24 Range/Units 19:31 19:45 19:46 WBC (3.98-10.04) x10^3/uL RBC (3.93-5.22) x10^6/uL Hgb (11.2-15.7) g/dL Hct (34.1-44.9) % MCV (79.4-94.8) fL MCH (25.6-32.2) pg MCHC (32.2-35.5) g/dL RDW (11.7-14.4) % Plt Count (182-369) x10^3/uL MPV (9.4-12.3) fL Gran % (34.0-71.1) % Immature Gran % (Auto) (0.001-0.429) % Nucleat RBC Rel Count (0.00-0.2) % Eos # (Auto) (0.04-0.36) x10^3/uL Immature Gran # (Auto) (0.001-0.031) x10^3u/L Absolute Lymphs (auto) (1.18-3.74) x10^3/uL Absolute Monos (auto) (0.24-0.86) x10^3/uL Absolute Nucleated RBC (0.00-0.012) x10^3u/L Lymphocytes % (19.3-51.7) % Monocytes % (4.7-12.5) % Eosinophils % (0.7-5.8) % Basophils % (0.1-1.2) % Absolute Granulocytes (1.56-6.13) x10^3/uL Basophils # (0.01-0.08) x10^3/uL pO2/FiO2 Ratio % VBG pH (7.32-7.42) VBG pCO2 at Pat Temp (42-55) mm/Hg VBG pO2 at Pat Temp (25-40) mm/Hg VBG HCO3 (22-28) meq/L VBG O2 Sat (Cyndi) (95-100) VBG Base Excess (-2.0-2.0) VBG Hemoglobin VBG Carboxyhemoglobin (0.0-6.9) % T HGB POC Potassium (3.5-5.1) Sodium 137 (135-145) mmol/L Potassium 4.1 (3.5-5.1) mmol/L Chloride 103 (98-107) mmol/L Carbon Dioxide 21 L (22-30) mmol/L Anion Gap 16.8 H (5-15) MEQ/L BUN 8 (7-17) mg/dL Creatinine 0.53 (0.52-1.04) mg/dL Estimated GFR 126.7 ML/MIN Glucose 274 H (74-106) mg/dL POC Glucometer (74 to 106) mg/dL Lactic Acid (0.4-2.0) Calcium 8.4 (8.4-10.2) mg/dL Phosphorus (2.5-4.5) mg/dL Magnesium (1.6-2.3) mg/dL Total Bilirubin 1.10 (0.2-1.3) mg/dL AST 47 H (14-36) U/L ALT 47 H (0-35) U/L Alkaline Phosphatase 84 (38-126) U/L Serum Total Protein 8.0 (6.3-8.2) g/dL Albumin 3.8 (3.5-5.0) g/dL Lipase 278 (23-300) U/L Urine Color (Yellow) Urine Appearance (Clear) Urine pH (4.6-8.0) Ur Specific [place] (1.005-1.030) Urine Protein (Negative) Urine Glucose (UA) (Negative) mg/dL Urine Ketones (Negative) Urine Blood (Negative) Urine Nitrite (Negative) Urine Bilirubin (Negative) Urine Urobilinogen (0.2) mg/dL Ur Leukocyte Esterase (Negative) U Hyaline Cast (Auto) (0-2) /LPF Urine Microscopic RBC (0-5) /HPF Urine Microscopic WBC (0-5) /HPF Ur Epithelial Cells (None Seen) /HPF Urine Bacteria (None Seen) /HPF Urine Culture Reflexed (NO) Urine HCG, Qual NEGATIVE (NEGATIVE) Chlamydia DNA Probe NOT DETECTED (NEGATIVE) N.gonorrhoeae DNA Probe NOT DETECTED (NEGATIVE) 05/06/24 05/06/24 05/06/24 Range/Units 19:46 21:37 Unknown WBC (3.98-10.04) x10^3/uL RBC (3.93-5.22) x10^6/uL Hgb (11.2-15.7) g/dL Hct (34.1-44.9) % MCV (79.4-94.8) fL MCH (25.6-32.2) pg MCHC (32.2-35.5) g/dL RDW (11.7-14.4) % Plt Count (182-369) x10^3/uL MPV (9.4-12.3) fL Gran % (34.0-71.1) % Immature Gran % (Auto) (0.001-0.429) % Nucleat RBC Rel Count (0.00-0.2) % Eos # (Auto) (0.04-0.36) x10^3/uL Immature Gran # (Auto) (0.001-0.031) x10^3u/L Absolute Lymphs (auto) (1.18-3.74) x10^3/uL Absolute Monos (auto) (0.24-0.86) x10^3/uL Absolute Nucleated RBC (0.00-0.012) x10^3u/L Lymphocytes % (19.3-51.7) % Monocytes % (4.7-12.5) % Eosinophils % (0.7-5.8) % Basophils % (0.1-1.2) % Absolute Granulocytes (1.56-6.13) x10^3/uL Basophils # (0.01-0.08) x10^3/uL pO2/FiO2 Ratio % VBG pH (7.32-7.42) VBG pCO2 at Pat Temp (42-55) mm/Hg VBG pO2 at Pat Temp (25-40) mm/Hg VBG HCO3 (22-28) meq/L VBG O2 Sat (Cyndi) (95-100) VBG Base Excess (-2.0-2.0) VBG Hemoglobin VBG Carboxyhemoglobin (0.0-6.9) % T HGB POC Potassium (3.5-5.1) Sodium (135-145) mmol/L Potassium (3.5-5.1) mmol/L Chloride (98-107) mmol/L Carbon Dioxide (22-30) mmol/L Anion Gap (5-15) MEQ/L BUN (7-17) mg/dL Creatinine (0.52-1.04) mg/dL Estimated GFR ML/MIN Glucose (74-106) mg/dL POC Glucometer 275 H (74 to 106) mg/dL Lactic Acid (0.4-2.0) Calcium (8.4-10.2) mg/dL Phosphorus 3.4 (2.5-4.5) mg/dL Magnesium 1.7 (1.6-2.3) mg/dL Total Bilirubin (0.2-1.3) mg/dL AST (14-36) U/L ALT (0-35) U/L Alkaline Phosphatase (38-126) U/L Serum Total Protein (6.3-8.2) g/dL Albumin (3.5-5.0) g/dL Lipase (23-300) U/L Urine Color Yellow (Yellow) Urine Appearance Cloudy A (Clear) Urine pH 5.5 (4.6-8.0) Ur Specific [place] >=1.030 A (1.005-1.030) Urine Protein 30 (Negative) Urine Glucose (UA) >=1000 A (Negative) mg/dL Urine Ketones 40 A (Negative) Urine Blood Negative (Negative) Urine Nitrite Positive A (Negative) Urine Bilirubin Negative (Negative) Urine Urobilinogen 1.0 A (0.2) mg/dL Ur Leukocyte Esterase Trace A (Negative) U Hyaline Cast (Auto) NONE SEEN (0-2) /LPF Urine Microscopic RBC 0-2 (0-5) /HPF Urine Microscopic WBC 11-20 A (0-5) /HPF Ur Epithelial Cells Few (None Seen) /HPF Urine Bacteria Few A (None Seen) /HPF Urine Culture Reflexed YES (NO) Urine HCG, Qual (NEGATIVE) Chlamydia DNA Probe (NEGATIVE) N.gonorrhoeae DNA Probe (NEGATIVE) 05/07/24 05/07/24 05/07/24 Range/Units 00:11 01:02 02:03 WBC (3.98-10.04) x10^3/uL RBC (3.93-5.22) x10^6/uL Hgb (11.2-15.7) g/dL Hct (34.1-44.9) % MCV (79.4-94.8) fL MCH (25.6-32.2) pg MCHC (32.2-35.5) g/dL RDW (11.7-14.4) % Plt Count (182-369) x10^3/uL MPV (9.4-12.3) fL Gran % (34.0-71.1) % Immature Gran % (Auto) (0.001-0.429) % Nucleat RBC Rel Count (0.00-0.2) % Eos # (Auto) (0.04-0.36) x10^3/uL Immature Gran # (Auto) (0.001-0.031) x10^3u/L Absolute Lymphs (auto) (1.18-3.74) x10^3/uL Absolute Monos (auto) (0.24-0.86) x10^3/uL Absolute Nucleated RBC (0.00-0.012) x10^3u/L Lymphocytes % (19.3-51.7) % Monocytes % (4.7-12.5) % Eosinophils % (0.7-5.8) % Basophils % (0.1-1.2) % Absolute Granulocytes (1.56-6.13) x10^3/uL Basophils # (0.01-0.08) x10^3/uL pO2/FiO2 Ratio % VBG pH (7.32-7.42) VBG pCO2 at Pat Temp (42-55) mm/Hg VBG pO2 at Pat Temp (25-40) mm/Hg VBG HCO3 (22-28) meq/L VBG O2 Sat (Cyndi) (95-100) VBG Base Excess (-2.0-2.0) VBG Hemoglobin VBG Carboxyhemoglobin (0.0-6.9) % T HGB POC Potassium (3.5-5.1) Sodium (135-145) mmol/L Potassium (3.5-5.1) mmol/L Chloride (98-107) mmol/L Carbon Dioxide (22-30) mmol/L Anion Gap (5-15) MEQ/L BUN (7-17) mg/dL Creatinine (0.52-1.04) mg/dL Estimated GFR ML/MIN Glucose (74-106) mg/dL POC Glucometer 284 H 270 H 286 H (74 to 106) mg/dL Lactic Acid (0.4-2.0) Calcium (8.4-10.2) mg/dL Phosphorus (2.5-4.5) mg/dL Magnesium (1.6-2.3) mg/dL Total Bilirubin (0.2-1.3) mg/dL AST (14-36) U/L ALT (0-35) U/L Alkaline Phosphatase (38-126) U/L Serum Total Protein (6.3-8.2) g/dL Albumin (3.5-5.0) g/dL Lipase (23-300) U/L Urine Color (Yellow) Urine Appearance (Clear) Urine pH (4.6-8.0) Ur Specific [place] (1.005-1.030) Urine Protein (Negative) Urine Glucose (UA) (Negative) mg/dL Urine Ketones (Negative) Urine Blood (Negative) Urine Nitrite (Negative) Urine Bilirubin (Negative) Urine Urobilinogen (0.2) mg/dL Ur Leukocyte Esterase (Negative) U Hyaline Cast (Auto) (0-2) /LPF Urine Microscopic RBC (0-5) /HPF Urine Microscopic WBC (0-5) /HPF Ur Epithelial Cells (None Seen) /HPF Urine Bacteria (None Seen) /HPF Urine Culture Reflexed (NO) Urine HCG, Qual (NEGATIVE) Chlamydia DNA Probe (NEGATIVE) N.gonorrhoeae DNA Probe (NEGATIVE) 05/07/24 05/07/24 05/07/24 Range/Units 03:12 04:10 04:52 WBC 12.3 H (3.98-10.04) x10^3/uL RBC 4.91 (3.93-5.22) x10^6/uL Hgb 16.3 H (11.2-15.7) g/dL Hct 41.9 (34.1-44.9) % MCV 85.3 (79.4-94.8) fL MCH 33.2 H (25.6-32.2) pg MCHC 38.9 H (32.2-35.5) g/dL RDW 13.1 (11.7-14.4) % Plt Count 213 (182-369) x10^3/uL MPV 11.4 (9.4-12.3) fL Gran % (34.0-71.1) % Immature Gran % (Auto) (0.001-0.429) % Nucleat RBC Rel Count (0.00-0.2) % Eos # (Auto) (0.04-0.36) x10^3/uL Immature Gran # (Auto) (0.001-0.031) x10^3u/L Absolute Lymphs (auto) (1.18-3.74) x10^3/uL Absolute Monos (auto) (0.24-0.86) x10^3/uL Absolute Nucleated RBC (0.00-0.012) x10^3u/L Lymphocytes % (19.3-51.7) % Monocytes % (4.7-12.5) % Eosinophils % (0.7-5.8) % Basophils % (0.1-1.2) % Absolute Granulocytes (1.56-6.13) x10^3/uL Basophils # (0.01-0.08) x10^3/uL pO2/FiO2 Ratio % VBG pH (7.32-7.42) VBG pCO2 at Pat Temp (42-55) mm/Hg VBG pO2 at Pat Temp (25-40) mm/Hg VBG HCO3 (22-28) meq/L VBG O2 Sat (Cyndi) (95-100) VBG Base Excess (-2.0-2.0) VBG Hemoglobin VBG Carboxyhemoglobin (0.0-6.9) % T HGB POC Potassium (3.5-5.1) Sodium (135-145) mmol/L Potassium (3.5-5.1) mmol/L Chloride (98-107) mmol/L Carbon Dioxide (22-30) mmol/L Anion Gap (5-15) MEQ/L BUN (7-17) mg/dL Creatinine (0.52-1.04) mg/dL Estimated GFR ML/MIN Glucose (74-106) mg/dL POC Glucometer 255 H 222 H (74 to 106) mg/dL Lactic Acid (0.4-2.0) Calcium (8.4-10.2) mg/dL Phosphorus (2.5-4.5) mg/dL Magnesium (1.6-2.3) mg/dL Total Bilirubin (0.2-1.3) mg/dL AST (14-36) U/L ALT (0-35) U/L Alkaline Phosphatase (38-126) U/L Serum Total Protein (6.3-8.2) g/dL Albumin (3.5-5.0) g/dL Lipase (23-300) U/L Urine Color (Yellow) Urine Appearance (Clear) Urine pH (4.6-8.0) Ur Specific [place] (1.005-1.030) Urine Protein (Negative) Urine Glucose (UA) (Negative) mg/dL Urine Ketones (Negative) Urine Blood (Negative) Urine Nitrite (Negative) Urine Bilirubin (Negative) Urine Urobilinogen (0.2) mg/dL Ur Leukocyte Esterase (Negative) U Hyaline Cast (Auto) (0-2) /LPF Urine Microscopic RBC (0-5) /HPF Urine Microscopic WBC (0-5) /HPF Ur Epithelial Cells (None Seen) /HPF Urine Bacteria (None Seen) /HPF Urine Culture Reflexed (NO) Urine HCG, Qual (NEGATIVE) Chlamydia DNA Probe (NEGATIVE) N.gonorrhoeae DNA Probe (NEGATIVE) 05/07/24 05/07/24 05/07/24 Range/Units 04:52 05:21 06:13 WBC (3.98-10.04) x10^3/uL RBC (3.93-5.22) x10^6/uL Hgb (11.2-15.7) g/dL Hct (34.1-44.9) % MCV (79.4-94.8) fL MCH (25.6-32.2) pg MCHC (32.2-35.5) g/dL RDW (11.7-14.4) % Plt Count (182-369) x10^3/uL MPV (9.4-12.3) fL Gran % (34.0-71.1) % Immature Gran % (Auto) (0.001-0.429) % Nucleat RBC Rel Count (0.00-0.2) % Eos # (Auto) (0.04-0.36) x10^3/uL Immature Gran # (Auto) (0.001-0.031) x10^3u/L Absolute Lymphs (auto) (1.18-3.74) x10^3/uL Absolute Monos (auto) (0.24-0.86) x10^3/uL Absolute Nucleated RBC (0.00-0.012) x10^3u/L Lymphocytes % (19.3-51.7) % Monocytes % (4.7-12.5) % Eosinophils % (0.7-5.8) % Basophils % (0.1-1.2) % Absolute Granulocytes (1.56-6.13) x10^3/uL Basophils # (0.01-0.08) x10^3/uL pO2/FiO2 Ratio % VBG pH (7.32-7.42) VBG pCO2 at Pat Temp (42-55) mm/Hg VBG pO2 at Pat Temp (25-40) mm/Hg VBG HCO3 (22-28) meq/L VBG O2 Sat (Cyndi) (95-100) VBG Base Excess (-2.0-2.0) VBG Hemoglobin VBG Carboxyhemoglobin (0.0-6.9) % T HGB POC Potassium (3.5-5.1) Sodium 137 (135-145) mmol/L Potassium 3.9 (3.5-5.1) mmol/L Chloride 110 H (98-107) mmol/L Carbon Dioxide 12 L* (22-30) mmol/L Anion Gap 18.5 H (5-15) MEQ/L BUN 6 L (7-17) mg/dL Creatinine 0.41 L (0.52-1.04) mg/dL Estimated GFR 134.8 ML/MIN Glucose 221 H (74-106) mg/dL POC Glucometer 274 H 244 H (74 to 106) mg/dL Lactic Acid (0.4-2.0) Calcium 6.6 L D (8.4-10.2) mg/dL Phosphorus (2.5-4.5) mg/dL Magnesium (1.6-2.3) mg/dL Total Bilirubin (0.2-1.3) mg/dL AST (14-36) U/L ALT (0-35) U/L Alkaline Phosphatase (38-126) U/L Serum Total Protein (6.3-8.2) g/dL Albumin (3.5-5.0) g/dL Lipase (23-300) U/L Urine Color (Yellow) Urine Appearance (Clear) Urine pH (4.6-8.0) Ur Specific [place] (1.005-1.030) Urine Protein (Negative) Urine Glucose (UA) (Negative) mg/dL Urine Ketones (Negative) Urine Blood (Negative) Urine Nitrite (Negative) Urine Bilirubin (Negative) Urine Urobilinogen (0.2) mg/dL Ur Leukocyte Esterase (Negative) U Hyaline Cast (Auto) (0-2) /LPF Urine Microscopic RBC (0-5) /HPF Urine Microscopic WBC (0-5) /HPF Ur Epithelial Cells (None Seen) /HPF Urine Bacteria (None Seen) /HPF Urine Culture Reflexed (NO) Urine HCG, Qual (NEGATIVE) Chlamydia DNA Probe (NEGATIVE) N.gonorrhoeae DNA Probe (NEGATIVE) 05/07/24 Range/Units 07:06 WBC (3.98-10.04) x10^3/uL RBC (3.93-5.22) x10^6/uL Hgb (11.2-15.7) g/dL Hct (34.1-44.9) % MCV (79.4-94.8) fL MCH (25.6-32.2) pg MCHC (32.2-35.5) g/dL RDW (11.7-14.4) % Plt Count (182-369) x10^3/uL MPV (9.4-12.3) fL Gran % (34.0-71.1) % Immature Gran % (Auto) (0.001-0.429) % Nucleat RBC Rel Count (0.00-0.2) % Eos # (Auto) (0.04-0.36) x10^3/uL Immature Gran # (Auto) (0.001-0.031) x10^3u/L Absolute Lymphs (auto) (1.18-3.74) x10^3/uL Absolute Monos (auto) (0.24-0.86) x10^3/uL Absolute Nucleated RBC (0.00-0.012) x10^3u/L Lymphocytes % (19.3-51.7) % Monocytes % (4.7-12.5) % Eosinophils % (0.7-5.8) % Basophils % (0.1-1.2) % Absolute Granulocytes (1.56-6.13) x10^3/uL Basophils # (0.01-0.08) x10^3/uL pO2/FiO2 Ratio % VBG pH (7.32-7.42) VBG pCO2 at Pat Temp (42-55) mm/Hg VBG pO2 at Pat Temp (25-40) mm/Hg VBG HCO3 (22-28) meq/L VBG O2 Sat (Cyndi) (95-100) VBG Base Excess (-2.0-2.0) VBG Hemoglobin VBG Carboxyhemoglobin (0.0-6.9) % T HGB POC Potassium (3.5-5.1) Sodium (135-145) mmol/L Potassium (3.5-5.1) mmol/L Chloride (98-107) mmol/L Carbon Dioxide (22-30) mmol/L Anion Gap (5-15) MEQ/L BUN (7-17) mg/dL Creatinine (0.52-1.04) mg/dL Estimated GFR ML/MIN Glucose (74-106) mg/dL POC Glucometer 271 H (74 to 106) mg/dL Lactic Acid (0.4-2.0) Calcium (8.4-10.2) mg/dL Phosphorus (2.5-4.5) mg/dL Magnesium (1.6-2.3) mg/dL Total Bilirubin (0.2-1.3) mg/dL AST (14-36) U/L ALT (0-35) U/L Alkaline Phosphatase (38-126) U/L Serum Total Protein (6.3-8.2) g/dL Albumin (3.5-5.0) g/dL Lipase (23-300) U/L Urine Color (Yellow) Urine Appearance (Clear) Urine pH (4.6-8.0) Ur Specific [place] (1.005-1.030) Urine Protein (Negative) Urine Glucose (UA) (Negative) mg/dL Urine Ketones (Negative) Urine Blood (Negative) Urine Nitrite (Negative) Urine Bilirubin (Negative) Urine Urobilinogen (0.2) mg/dL Ur Leukocyte Esterase (Negative) U Hyaline Cast (Auto) (0-2) /LPF Urine Microscopic RBC (0-5) /HPF Urine Microscopic WBC (0-5) /HPF Ur Epithelial Cells (None Seen) /HPF Urine Bacteria (None Seen) /HPF Urine Culture Reflexed (NO) Urine HCG, Qual (NEGATIVE) Chlamydia DNA Probe (NEGATIVE) N.gonorrhoeae DNA Probe (NEGATIVE) Radiology Exams: Radiology Procedures Category Date Time Status ABDOMEN AND PELVIS W CONTRAST [CT] Stat Exams 05/06/24 19:18 Completed Assessment/Plan (1) DKA (diabetic ketoacidosis) Current Visit: Yes Status: Acute Qualifiers: Diabetes mellitus type: type 2 Assessment & Plan: - DKA protocol - Monitor electrolytes - IVF - Insulin gtt - Q1 hr accuchecks - A1C pending - lipid panel pending Anion Gap 18.5 - Carbon dioxide will improve with DKA protocol - Pt should be on a statin per guidelines at d/c. Code(s): E11.10 - TYPE 2 DIABETES MELLITUS WITH KETOACIDOSIS WITHOUT COMA (2) Abdominal pain Current Visit: Yes Status: Acute Assessment & Plan: - 2:2 Pancreatitis - Zofran, Compazine for nausea - Dilaudid for pain - CT abd. pelvis: 05/06/24 Pelvis: The urinary bladder is unremarkable. The rectosigmoid colon is unremarkable. The uterus appears unremarkable. 30 x 22 mm right ovarian cyst and 21 x 20 mm left ovarian cyst noted. No evidence of pelvic lymphadenopathy. No definite bony abnormalities could be depicted. IMPRESSION: Enlarged and edematous head and uncinate process of pancreas with significant surrounding fat stranding and mild fluid collection, representing acute pancreatitis. Modified CT severity index - 4 Code(s): R10.9 - UNSPECIFIED ABDOMINAL PAIN (3) Acute pancreatitis Current Visit: No Status: Acute Assessment & Plan: - NPO - Dilaudid - Lipid panel - IVF - As seen on CT Code(s): K85.90 - ACUTE PANCREATITIS WITHOUT NECROSIS OR INFECTION, UNSP (4) Type II diabetes mellitus Current Visit: Yes Status: Chronic Qualifiers: Diabetes mellitus emt intermediate insulin use: with emt intermediate use Assessment & Plan: - A1C pending - NPO as in DKA- on DKA protocol - Will need refills of insulin at d/c since she is out (5) Urinary tract infection Current Visit: Yes Status: Acute Assessment & Plan: - Ceftriaxone - UC pending- gram negative, sensitivity pending. - IVF Code(s): N39.0 - URINARY TRACT INFECTION, SITE NOT SPECIFIED (6) Obesity (BMI 30.0-34.9) Current Visit: Yes Status: Chronic Assessment & Plan: - advised ADA diet and exercise VTE: Lovenox PPI: Protonix Next of KIN: Dinesh Ley [phone] D/C plan: 1-2 days Code status: Full Code(s): E66.9 - OBESITY, UNSPECIFIED
[2024-05-07 08:39] LABS: ANION GAP 20.8 MEQ/L (5-15); Calcium 6.3 mg/dL (8.4-10.2); Creatinine 1 0.49 mg/dL (0.52-1.04); EST GLOMERULAR FILTRATION RATE 129.1 ML/MIN; Potassium 4.2 mmol/L (3.5-5.1)
[2024-05-07] MEDS: PROTONIX 40 MG IV IV SCH (08:40)
[2024-05-07] MEDS: Sodium Chloride 0.9% 1000 ML 1,000 ML IV SCH (09:14)
[2024-05-07 09:31] LABS: MAGNESIUM 1.5 mg/dL (1.6-2.3); PHOSPHOROUS 1.9 mg/dL (2.5-4.5)
[2024-05-07 09:47] LABS: Risk Ratio 29.8
[2024-05-07] MEDS: ROCEPHIN 1 GM / 100 ML NaCl 1 GM/100 ML IVPB IV SCH (10:27)
[2024-05-07] MEDS: ENOXAPARIN SODIUM SQ SCH (10:30)
[2024-05-07] MEDS ORDERED: Magnesium Sulfate 1 GM/2 ML VIAL IV ONE (11:30)
[2024-05-07] MEDS: Magnesium 1 Gm / 100 Ml D5W*** 100 ML IV ONE (12:03)
[2024-05-07 12:53] LABS: ANION GAP 17.2 MEQ/L (5-15); Creatinine 1 0.5 mg/dL (0.52-1.04); EST GLOMERULAR FILTRATION RATE 128.5 ML/MIN; Potassium 3.9 mmol/L (3.5-5.1)
[2024-05-07 12:54] LABS: MAGNESIUM 1.9 mg/dL (1.6-2.3)
[2024-05-07 13:01] LABS: Calcium 5.9 mg/dL (8.4-10.2)
[2024-05-07] MEDS: Tums EX 750 MG PO SCH (15:24)
[2024-05-07 16:24] LABS: Calcium 6.1 mg/dL (8.4-10.2); Creatinine 1 0.46 mg/dL (0.52-1.04); EST GLOMERULAR FILTRATION RATE 131.1 ML/MIN
[2024-05-07 16:31] LABS: MAGNESIUM 1.9 mg/dL (1.6-2.3); PHOSPHOROUS 1.7 mg/dL (2.5-4.5)
[2024-05-07] MEDS: SODIUM BICARBONATE PO SCH (17:01)
[2024-05-07 20:21] LABS: ANION GAP 16.5 MEQ/L (5-15); Creatinine 1 0.46 mg/dL (0.52-1.04); EST GLOMERULAR FILTRATION RATE 131.1 ML/MIN; MAGNESIUM 1.9 mg/dL (1.6-2.3); PHOSPHOROUS 1.9 mg/dL (2.5-4.5); Potassium 4.3 mmol/L (3.5-5.1)
[2024-05-07] MEDS: Compazine 10 MG/2 ML IV PRN (20:29)
[2024-05-07] MEDS: ZOCOR 20MG PO SCH (21:47)
[2024-05-07] MEDS ORDERED: LIPITOR 40MG PO SCH (22:00)
[2024-05-07] MEDS ORDERED: ZOCOR 20MG PO SCH (22:00)
[2024-05-07] MEDS ORDERED: Tums EX 750 MG PO SCH (22:00)
[2024-05-08 00:36] LABS: ANION GAP 13.5 MEQ/L (5-15); Creatinine 1 0.55 mg/dL (0.52-1.04); EST GLOMERULAR FILTRATION RATE 125.6 ML/MIN; MAGNESIUM 1.9 mg/dL (1.6-2.3); PHOSPHOROUS 2.3 mg/dL (2.5-4.5)
[2024-05-08 00:42] LABS: Calcium 6.1 mg/dL (8.4-10.2)
[2024-05-08] MEDS: Lantus Insulin SQ SCH (03:03)
[2024-05-08 04:38] LABS: Hematocrit 41.4 % (34.1-44.9); Hemoglobin 14.1 g/dL (11.2-15.7); Mean Cell Volume 85.9 fL (79.4-94.8); Mean Corpuscular Hemoglobin 29.3 pg (25.6-32.2); Mean Corpuscular Hgb Concent. 34.1 g/dL (32.2-35.5); Mean Platelet Volume 11.4 fL (9.4-12.3); Platelet Count 218 x10^3/uL (182-369); Red Blood Count 4.82 x10^6/uL (3.93-5.22); Red Cell Distribution Width 13.9 % (11.7-14.4); White Blood Count 11.2 x10^3/uL (3.98-10.04)
[2024-05-08 04:53] LABS: ALBUMIN 3.3 g/dL (3.5-5.0); ANION GAP 11.9 MEQ/L (5-15); BILIRUBIN,TOTAL 1.4 mg/dL (0.2-1.3); Calcium 6.1 mg/dL (8.4-10.2); Creatinine 1 0.54 mg/dL (0.52-1.04); EST GLOMERULAR FILTRATION RATE 126.2 ML/MIN; Potassium 3.9 mmol/L (3.5-5.1); Total Protein 6.5 g/dL (6.3-8.2)
[2024-05-08 04:56] LABS: MAGNESIUM 1.8 mg/dL (1.6-2.3); PHOSPHOROUS 1.8 mg/dL (2.5-4.5)
--- NOTE | 2024-05-08 05:28 | PCM.NOTE ---
Date and Time: 05/08/24 0533 Subjective Assessment: is a 33 year old female with PMHX of Type II DM and chronic obesity admitted 05/06/24 for DKA after experiencing RUQ pain with nausea. Patient has had multiple admission for DKA due to noncompliance with medications and follow up with PCP. On current admission patient states she has been out of her Humalog and Lantus for one month. CT of the abdomen and pelvis noting acute pancreatitis, of note lipase WNL- triglycerides 5408 - most likely Hypertriglyceridemia-induced acute pancreatitis. Plan to start gemfibrozil 600mg BID and dietary modification (fat and carb restricted diet). UA suspicious for UTI. IP treatment with insulin gtt per protocol/IVF for pancreatitis. Ceftriaxone for UTI. Patient will need follow up on discharge as she no longer wishes to return to her current PCP. Advise follow up with endocrinology. 05/08/24: Met with patient bedside. Endorses continued abdominal pain, nausea with an episode of vomiting last night. She is unable to tolerate a diet. Hypertriglyceridemia-induced acute pancreatitis - will continue insulin drip/D5 and keep patient NPO for now. Triglycerides improved to 1377<5480. Will start gemfibrozil with triglycerides are less than 500. Long discussion regarding the importance of follow up and medication compliance. Patient is agreeable to see endocrinology. Denies fever,cough, sob, cp,PARISH, dizziness, or diarrhea. <MILTON GRANT - Last Filed: 05/08/24 12:09> Date and Time: 05/08/242143 <SHERI BASS - Last Filed: 05/08/24 21:46> - Review of Systems Constitutional: No Symptoms Eyes: No Symptoms Ears, Nose, & Throat: No Symptoms Respiratory: No Symptoms Cardiac: No Symptoms Abdominal/Gastrointestinal: Abdominal Pain, Nausea, Vomiting Genitourinary Symptoms: No Symptoms Musculoskeletal: No Symptoms Skin: No Symptoms Neurological: No Symptoms Psychological: No Symptoms Endocrine: No Symptoms Hematologic/Lymphatic: No Symptoms Immunological/Allergic: No Symptoms <MILTON GRANT - Last Filed: 05/08/24 12:09> Objective Exam General Appearance: no apparent distress Neurologic Exam: alert, oriented x 3, cooperative Skin Exam: normal color Eye Exam: PERRL Ears, Nose, Throat Exam: normal ENT inspection Neck Exam: normal inspection Respiratory Exam: normal breath sounds, lungs clear Cardiovascular Exam: regular rate/rhythm, normal heart sounds Gastrointestinal/Abdomen Exam: soft, normal bowel sounds Extremity Exam: normal inspection, normal range of motion Back Exam: normal inspection Pelvic Exam: deferred Rectal Exam: deferred <MILTON GRANT - Last Filed: 05/08/24 12:09> Objective Data Vital Signs: Vital Signs - 24 hr Pulse Resp BP Pulse Ox 05/08/24 04:00 105 H 22 89/61 96 05/08/24 02:00 103 H 21 109/82 93 L 05/08/24 01:00 100 05/08/24 00:00 98 H 25 H 114/76 92 L 05/07/24 23:07 97 H 05/07/24 22:00 100 H 31 H 112/81 95 05/07/24 20:00 108 H 16 115/76 90 L 05/07/24 18:00 106 H 29 H 115/80 92 L 05/07/24 16:00 109 H 23 100/69 92 L 05/07/24 14:00 108 H 26 H 120/73 91 L 05/07/24 12:00 106 H 26 H 104/71 92 L 05/07/24 11:36 107 H 24 107/63 93 L 05/07/24 07:41 101 H 05/07/24 07:11 104 H 27 H 104/73 90 L Pain Assessment - Last Documented Pain Intensity 0 Pain Scale Used 0-10 Pain Scale Intake and Output: Intake & Output 05/05/24 05/06/24 05/07/24 05/08/24 11:59 11:59 11:59 11:59 Intake Total 493 0 Output Total 400 400 Balance 93 -400 Weight 87 kg Lab Results: Lab Results-Last 24 Hours 05/07/24 05/07/24 05/07/24 Range/Units 05:21 06:13 07:06 WBC (3.98-10.04) x10^3/uL RBC (3.93-5.22) x10^6/uL Hgb (11.2-15.7) g/dL Hct (34.1-44.9) % MCV (79.4-94.8) fL MCH (25.6-32.2) pg MCHC (32.2-35.5) g/dL RDW (11.7-14.4) % Plt Count (182-369) x10^3/uL MPV (9.4-12.3) fL Sodium (135-145) mmol/L Potassium (3.5-5.1) mmol/L Chloride (98-107) mmol/L Carbon Dioxide (22-30) mmol/L Anion Gap (5-15) MEQ/L BUN (7-17) mg/dL Creatinine (0.52-1.04) mg/dL Estimated GFR ML/MIN Glucose (74-106) mg/dL POC Glucometer 274 H 244 H 271 H (74 to 106) mg/dL Calcium (8.4-10.2) mg/dL Phosphorus (2.5-4.5) mg/dL Magnesium (1.6-2.3) mg/dL Total Bilirubin (0.2-1.3) mg/dL AST (14-36) U/L ALT (0-35) U/L Alkaline Phosphatase (38-126) U/L Serum Total Protein (6.3-8.2) g/dL Albumin (3.5-5.0) g/dL Triglycerides (30-150) mg/dL Cholesterol (50-200) mg/dL LDL Cholesterol (30-100) mg/dL HDL Cholesterol (40-60) mg/dL Heart Disease Risk Ratio 05/07/24 05/07/24 05/07/24 Range/Units 08:06 08:15 08:55 WBC (3.98-10.04) x10^3/uL RBC (3.93-5.22) x10^6/uL Hgb (11.2-15.7) g/dL Hct (34.1-44.9) % MCV (79.4-94.8) fL MCH (25.6-32.2) pg MCHC (32.2-35.5) g/dL RDW (11.7-14.4) % Plt Count (182-369) x10^3/uL MPV (9.4-12.3) fL Sodium 136 (135-145) mmol/L Potassium 4.2 (3.5-5.1) mmol/L Chloride 109 H (98-107) mmol/L Carbon Dioxide 11 L* (22-30) mmol/L Anion Gap 20.8 H (5-15) MEQ/L BUN 7 (7-17) mg/dL Creatinine 0.49 L (0.52-1.04) mg/dL Estimated GFR 129.1 ML/MIN Glucose 244 H (74-106) mg/dL POC Glucometer 259 H (74 to 106) mg/dL Calcium 6.3 L (8.4-10.2) mg/dL Phosphorus 1.9 L (2.5-4.5) mg/dL Magnesium 1.5 L (1.6-2.3) mg/dL Total Bilirubin (0.2-1.3) mg/dL AST (14-36) U/L ALT (0-35) U/L Alkaline Phosphatase (38-126) U/L Serum Total Protein (6.3-8.2) g/dL Albumin (3.5-5.0) g/dL Triglycerides 5408 H (30-150) mg/dL Cholesterol 747 H (50-200) mg/dL LDL Cholesterol 141 H (30-100) mg/dL HDL Cholesterol 25 L (40-60) mg/dL Heart Disease Risk Ratio 29.8 05/07/24 05/07/24 05/07/24 Range/Units 09:41 10:54 12:15 WBC (3.98-10.04) x10^3/uL RBC (3.93-5.22) x10^6/uL Hgb (11.2-15.7) g/dL Hct (34.1-44.9) % MCV (79.4-94.8) fL MCH (25.6-32.2) pg MCHC (32.2-35.5) g/dL RDW (11.7-14.4) % Plt Count (182-369) x10^3/uL MPV (9.4-12.3) fL Sodium 136 (135-145) mmol/L Potassium 3.9 (3.5-5.1) mmol/L Chloride 111 H (98-107) mmol/L Carbon Dioxide 12 L* (22-30) mmol/L Anion Gap 17.2 H (5-15) MEQ/L BUN 8 (7-17) mg/dL Creatinine 0.50 L (0.52-1.04) mg/dL Estimated GFR 128.5 ML/MIN Glucose 189 H (74-106) mg/dL POC Glucometer 219 H 175 H (74 to 106) mg/dL Calcium 5.9 L* (8.4-10.2) mg/dL Phosphorus (2.5-4.5) mg/dL Magnesium (1.6-2.3) mg/dL Total Bilirubin (0.2-1.3) mg/dL AST (14-36) U/L ALT (0-35) U/L Alkaline Phosphatase (38-126) U/L Serum Total Protein (6.3-8.2) g/dL Albumin (3.5-5.0) g/dL Triglycerides (30-150) mg/dL Cholesterol (50-200) mg/dL LDL Cholesterol (30-100) mg/dL HDL Cholesterol (40-60) mg/dL Heart Disease Risk Ratio 05/07/24 05/07/24 05/07/24 Range/Units 12:15 12:17 13:15 WBC (3.98-10.04) x10^3/uL RBC (3.93-5.22) x10^6/uL Hgb (11.2-15.7) g/dL Hct (34.1-44.9) % MCV (79.4-94.8) fL MCH (25.6-32.2) pg MCHC (32.2-35.5) g/dL RDW (11.7-14.4) % Plt Count (182-369) x10^3/uL MPV (9.4-12.3) fL Sodium (135-145) mmol/L Potassium (3.5-5.1) mmol/L Chloride (98-107) mmol/L Carbon Dioxide (22-30) mmol/L Anion Gap (5-15) MEQ/L BUN (7-17) mg/dL Creatinine (0.52-1.04) mg/dL Estimated GFR ML/MIN Glucose (74-106) mg/dL POC Glucometer 206 H 207 H (74 to 106) mg/dL Calcium (8.4-10.2) mg/dL Phosphorus 2.0 L (2.5-4.5) mg/dL Magnesium 1.9 (1.6-2.3) mg/dL Total Bilirubin (0.2-1.3) mg/dL AST (14-36) U/L ALT (0-35) U/L Alkaline Phosphatase (38-126) U/L Serum Total Protein (6.3-8.2) g/dL Albumin (3.5-5.0) g/dL Triglycerides (30-150) mg/dL Cholesterol (50-200) mg/dL LDL Cholesterol (30-100) mg/dL HDL Cholesterol (40-60) mg/dL Heart Disease Risk Ratio 05/07/24 05/07/24 05/07/24 Range/Units 14:31 15:26 15:50 WBC (3.98-10.04) x10^3/uL RBC (3.93-5.22) x10^6/uL Hgb (11.2-15.7) g/dL Hct (34.1-44.9) % MCV (79.4-94.8) fL MCH (25.6-32.2) pg MCHC (32.2-35.5) g/dL RDW (11.7-14.4) % Plt Count (182-369) x10^3/uL MPV (9.4-12.3) fL Sodium 137 (135-145) mmol/L Potassium 4.0 (3.5-5.1) mmol/L Chloride 111 H (98-107) mmol/L Carbon Dioxide 13 L* (22-30) mmol/L Anion Gap 16.0 H (5-15) MEQ/L BUN 8 (7-17) mg/dL Creatinine 0.46 L (0.52-1.04) mg/dL Estimated GFR 131.1 ML/MIN Glucose 155 H (74-106) mg/dL POC Glucometer 194 H 162 H (74 to 106) mg/dL Calcium 6.1 L (8.4-10.2) mg/dL Phosphorus (2.5-4.5) mg/dL Magnesium (1.6-2.3) mg/dL Total Bilirubin (0.2-1.3) mg/dL AST (14-36) U/L ALT (0-35) U/L Alkaline Phosphatase (38-126) U/L Serum Total Protein (6.3-8.2) g/dL Albumin (3.5-5.0) g/dL Triglycerides (30-150) mg/dL Cholesterol (50-200) mg/dL LDL Cholesterol (30-100) mg/dL HDL Cholesterol (40-60) mg/dL Heart Disease Risk Ratio 05/07/24 05/07/24 05/07/24 Range/Units 15:50 16:27 17:33 WBC (3.98-10.04) x10^3/uL RBC (3.93-5.22) x10^6/uL Hgb (11.2-15.7) g/dL Hct (34.1-44.9) % MCV (79.4-94.8) fL MCH (25.6-32.2) pg MCHC (32.2-35.5) g/dL RDW (11.7-14.4) % Plt Count (182-369) x10^3/uL MPV (9.4-12.3) fL Sodium (135-145) mmol/L Potassium (3.5-5.1) mmol/L Chloride (98-107) mmol/L Carbon Dioxide (22-30) mmol/L Anion Gap (5-15) MEQ/L BUN (7-17) mg/dL Creatinine (0.52-1.04) mg/dL Estimated GFR ML/MIN Glucose (74-106) mg/dL POC Glucometer 168 H 143 H (74 to 106) mg/dL Calcium (8.4-10.2) mg/dL Phosphorus 1.7 L (2.5-4.5) mg/dL Magnesium 1.9 (1.6-2.3) mg/dL Total Bilirubin (0.2-1.3) mg/dL AST (14-36) U/L ALT (0-35) U/L Alkaline Phosphatase (38-126) U/L Serum Total Protein (6.3-8.2) g/dL Albumin (3.5-5.0) g/dL Triglycerides (30-150) mg/dL Cholesterol (50-200) mg/dL LDL Cholesterol (30-100) mg/dL HDL Cholesterol (40-60) mg/dL Heart Disease Risk Ratio 05/07/24 05/07/24 05/07/24 Range/Units 18:24 19:35 20:00 WBC (3.98-10.04) x10^3/uL RBC (3.93-5.22) x10^6/uL Hgb (11.2-15.7) g/dL Hct (34.1-44.9) % MCV (79.4-94.8) fL MCH (25.6-32.2) pg MCHC (32.2-35.5) g/dL RDW (11.7-14.4) % Plt Count (182-369) x10^3/uL MPV (9.4-12.3) fL Sodium 136 (135-145) mmol/L Potassium 4.3 (3.5-5.1) mmol/L Chloride 110 H (98-107) mmol/L Carbon Dioxide 14 L* (22-30) mmol/L Anion Gap 16.5 H (5-15) MEQ/L BUN 7 (7-17) mg/dL Creatinine 0.46 L (0.52-1.04) mg/dL Estimated GFR 131.1 ML/MIN Glucose 115 H (74-106) mg/dL POC Glucometer 155 H 124 H (74 to 106) mg/dL Calcium 6.0 L (8.4-10.2) mg/dL Phosphorus 1.9 L (2.5-4.5) mg/dL Magnesium 1.9 (1.6-2.3) mg/dL Total Bilirubin (0.2-1.3) mg/dL AST (14-36) U/L ALT (0-35) U/L Alkaline Phosphatase (38-126) U/L Serum Total Protein (6.3-8.2) g/dL Albumin (3.5-5.0) g/dL Triglycerides (30-150) mg/dL Cholesterol (50-200) mg/dL LDL Cholesterol (30-100) mg/dL HDL Cholesterol (40-60) mg/dL Heart Disease Risk Ratio 05/07/24 05/07/24 05/07/24 Range/Units 20:34 21:16 22:03 WBC (3.98-10.04) x10^3/uL RBC (3.93-5.22) x10^6/uL Hgb (11.2-15.7) g/dL Hct (34.1-44.9) % MCV (79.4-94.8) fL MCH (25.6-32.2) pg MCHC (32.2-35.5) g/dL RDW (11.7-14.4) % Plt Count (182-369) x10^3/uL MPV (9.4-12.3) fL Sodium (135-145) mmol/L Potassium (3.5-5.1) mmol/L Chloride (98-107) mmol/L Carbon Dioxide (22-30) mmol/L Anion Gap (5-15) MEQ/L BUN (7-17) mg/dL Creatinine (0.52-1.04) mg/dL Estimated GFR ML/MIN Glucose (74-106) mg/dL POC Glucometer 110 H 113 H 102 (74 to 106) mg/dL Calcium (8.4-10.2) mg/dL Phosphorus (2.5-4.5) mg/dL Magnesium (1.6-2.3) mg/dL Total Bilirubin (0.2-1.3) mg/dL AST (14-36) U/L ALT (0-35) U/L Alkaline Phosphatase (38-126) U/L Serum Total Protein (6.3-8.2) g/dL Albumin (3.5-5.0) g/dL Triglycerides (30-150) mg/dL Cholesterol (50-200) mg/dL LDL Cholesterol (30-100) mg/dL HDL Cholesterol (40-60) mg/dL Heart Disease Risk Ratio 05/07/24 05/08/24 05/08/24 Range/Units 23:01 00:01 00:23 WBC (3.98-10.04) x10^3/uL RBC (3.93-5.22) x10^6/uL Hgb (11.2-15.7) g/dL Hct (34.1-44.9) % MCV (79.4-94.8) fL MCH (25.6-32.2) pg MCHC (32.2-35.5) g/dL RDW (11.7-14.4) % Plt Count (182-369) x10^3/uL MPV (9.4-12.3) fL Sodium (135-145) mmol/L Potassium (3.5-5.1) mmol/L Chloride (98-107) mmol/L Carbon Dioxide (22-30) mmol/L Anion Gap (5-15) MEQ/L BUN (7-17) mg/dL Creatinine (0.52-1.04) mg/dL Estimated GFR ML/MIN Glucose (74-106) mg/dL POC Glucometer 102 107 H (74 to 106) mg/dL Calcium (8.4-10.2) mg/dL Phosphorus 2.3 L (2.5-4.5) mg/dL Magnesium 1.9 (1.6-2.3) mg/dL Total Bilirubin (0.2-1.3) mg/dL AST (14-36) U/L ALT (0-35) U/L Alkaline Phosphatase (38-126) U/L Serum Total Protein (6.3-8.2) g/dL Albumin (3.5-5.0) g/dL Triglycerides (30-150) mg/dL Cholesterol (50-200) mg/dL LDL Cholesterol (30-100) mg/dL HDL Cholesterol (40-60) mg/dL Heart Disease Risk Ratio 05/08/24 05/08/24 05/08/24 Range/Units 00:23 01:08 02:11 WBC (3.98-10.04) x10^3/uL RBC (3.93-5.22) x10^6/uL Hgb (11.2-15.7) g/dL Hct (34.1-44.9) % MCV (79.4-94.8) fL MCH (25.6-32.2) pg MCHC (32.2-35.5) g/dL RDW (11.7-14.4) % Plt Count (182-369) x10^3/uL MPV (9.4-12.3) fL Sodium 137 (135-145) mmol/L Potassium 4.0 (3.5-5.1) mmol/L Chloride 107 (98-107) mmol/L Carbon Dioxide 20 L (22-30) mmol/L Anion Gap 13.5 (5-15) MEQ/L BUN 7 (7-17) mg/dL Creatinine 0.55 (0.52-1.04) mg/dL Estimated GFR 125.6 ML/MIN Glucose 107 H (74-106) mg/dL POC Glucometer 112 H 122 H (74 to 106) mg/dL Calcium 6.1 L (8.4-10.2) mg/dL Phosphorus (2.5-4.5) mg/dL Magnesium (1.6-2.3) mg/dL Total Bilirubin (0.2-1.3) mg/dL AST (14-36) U/L ALT (0-35) U/L Alkaline Phosphatase (38-126) U/L Serum Total Protein (6.3-8.2) g/dL Albumin (3.5-5.0) g/dL Triglycerides (30-150) mg/dL Cholesterol (50-200) mg/dL LDL Cholesterol (30-100) mg/dL HDL Cholesterol (40-60) mg/dL Heart Disease Risk Ratio 05/08/24 05/08/24 05/08/24 Range/Units 03:06 04:05 04:30 WBC (3.98-10.04) x10^3/uL RBC (3.93-5.22) x10^6/uL Hgb (11.2-15.7) g/dL Hct (34.1-44.9) % MCV (79.4-94.8) fL MCH (25.6-32.2) pg MCHC (32.2-35.5) g/dL RDW (11.7-14.4) % Plt Count (182-369) x10^3/uL MPV (9.4-12.3) fL Sodium (135-145) mmol/L Potassium (3.5-5.1) mmol/L Chloride (98-107) mmol/L Carbon Dioxide (22-30) mmol/L Anion Gap (5-15) MEQ/L BUN (7-17) mg/dL Creatinine (0.52-1.04) mg/dL Estimated GFR ML/MIN Glucose (74-106) mg/dL POC Glucometer 129 H 111 H (74 to 106) mg/dL Calcium (8.4-10.2) mg/dL Phosphorus 1.8 L (2.5-4.5) mg/dL Magnesium 1.8 (1.6-2.3) mg/dL Total Bilirubin (0.2-1.3) mg/dL AST (14-36) U/L ALT (0-35) U/L Alkaline Phosphatase (38-126) U/L Serum Total Protein (6.3-8.2) g/dL Albumin (3.5-5.0) g/dL Triglycerides (30-150) mg/dL Cholesterol (50-200) mg/dL LDL Cholesterol (30-100) mg/dL HDL Cholesterol (40-60) mg/dL Heart Disease Risk Ratio 05/08/24 05/08/24 05/08/24 Range/Units 04:30 04:30 04:58 WBC 11.2 H (3.98-10.04) x10^3/uL RBC 4.82 (3.93-5.22) x10^6/uL Hgb 14.1 (11.2-15.7) g/dL Hct 41.4 (34.1-44.9) % MCV 85.9 (79.4-94.8) fL MCH 29.3 (25.6-32.2) pg MCHC 34.1 (32.2-35.5) g/dL RDW 13.9 (11.7-14.4) % Plt Count 218 (182-369) x10^3/uL MPV 11.4 (9.4-12.3) fL Sodium 136 (135-145) mmol/L Potassium 3.9 (3.5-5.1) mmol/L Chloride 106 (98-107) mmol/L Carbon Dioxide 22 (22-30) mmol/L Anion Gap 11.9 (5-15) MEQ/L BUN 6 L (7-17) mg/dL Creatinine 0.54 (0.52-1.04) mg/dL Estimated GFR 126.2 ML/MIN Glucose 129 H (74-106) mg/dL POC Glucometer 130 H (74 to 106) mg/dL Calcium 6.1 L (8.4-10.2) mg/dL Phosphorus (2.5-4.5) mg/dL Magnesium (1.6-2.3) mg/dL Total Bilirubin 1.40 H (0.2-1.3) mg/dL AST 45 H (14-36) U/L ALT 26 (0-35) U/L Alkaline Phosphatase 51 (38-126) U/L Serum Total Protein 6.5 (6.3-8.2) g/dL Albumin 3.3 L (3.5-5.0) g/dL Triglycerides (30-150) mg/dL Cholesterol (50-200) mg/dL LDL Cholesterol (30-100) mg/dL HDL Cholesterol (40-60) mg/dL Heart Disease Risk Ratio Radiology Exams: Radiology Procedures Category Date Time Status ABDOMEN AND PELVIS W CONTRAST [CT] Stat Exams 05/06/24 19:18 Completed <MILTON GRANT - Last Filed: 05/08/24 12:09> Vital Signs: Vital Signs - 24 hr Temp Pulse Resp BP Pulse Ox 05/08/24 20:00 87 19 113/73 94 L 05/08/24 18:00 89 20 109/72 97 05/08/24 16:10 91 H 05/08/24 16:08 91 H 20 98/46 97 05/08/24 16:00 94 H 22 85/51 97 05/08/24 14:00 98 H 30 H 118/78 05/08/24 12:30 93 H 05/08/24 12:00 93 H 23 118/82 05/08/24 10:58 101 H 22 114/76 95 05/08/24 10:00 93 H 21 89/65 05/08/24 08:00 98.7 F 95 H 16 106/80 05/08/24 07:19 105 H 28 H 106/63 93 L 05/08/24 06:00 98.0 F 102 H 21 93/63 93 L 05/08/24 04:00 105 H 22 89/61 96 05/08/24 02:00 103 H 21 109/82 93 L 05/08/24 01:00 100 05/08/24 00:00 98 H 25 H 114/76 92 L 05/07/24 23:07 97 H 05/07/24 22:00 100 H 31 H 112/81 95 Pain Assessment - Last Documented Pain Intensity 0 Pain Scale Used 0-10 Pain Scale Intake and Output: Intake & Output 05/06/24 05/07/24 05/08/24 05/09/24 11:59 11:59 11:59 11:59 Intake Total 493 4945 1952 Output Total 457 443 0993 Balance 93 985 852 Weight 87 kg 88.9 kg 88.9 kg Lab Results: Lab Results-Last 24 Hours 05/07/24 05/07/2405/08/24 Range/Units 22:03 23:01 00:01 WBC (3.98-10.04) x10^3/uL RBC (3.93-5.22) x10^6/uL Hgb (11.2-15.7) g/dL Hct (34.1-44.9) % MCV (79.4-94.8) fL MCH (25.6-32.2) pg MCHC (32.2-35.5) g/dL RDW (11.7-14.4) % Plt Count (182-369) x10^3/uL MPV (9.4-12.3) fL Ionized Calcium (1.12-1.32) mmol/L Sodium (135-145) mmol/L Potassium (3.5-5.1) mmol/L Chloride (98-107) mmol/L Carbon Dioxide (22-30) mmol/L Anion Gap (5-15) MEQ/L BUN (7-17) mg/dL Creatinine (0.52-1.04) mg/dL Estimated GFR ML/MIN Glucose (74-106) mg/dL POC Glucometer 102 102 107 H (74 to 106) mg/dL Hemoglobin A1c (4.5-6.0) % Calcium (8.4-10.2) mg/dL Phosphorus (2.5-4.5) mg/dL Magnesium (1.6-2.3) mg/dL Total Bilirubin (0.2-1.3) mg/dL AST (14-36) U/L ALT (0-35) U/L Alkaline Phosphatase (38-126) U/L Serum Total Protein (6.3-8.2) g/dL Albumin (3.5-5.0) g/dL Triglycerides (30-150) mg/dL Cholesterol (50-200) mg/dL LDL Cholesterol (30-100) mg/dL HDL Cholesterol (40-60) mg/dL Heart Disease Risk Ratio 25-OH Vitamin D Total (30-100) ng/mL 05/08/24 05/08/24 05/08/24 Range/Units 00:23 00:23 01:08 WBC (3.98-10.04) x10^3/uL RBC (3.93-5.22) x10^6/uL Hgb (11.2-15.7) g/dL Hct (34.1-44.9) % MCV (79.4-94.8) fL MCH (25.6-32.2) pg MCHC (32.2-35.5) g/dL RDW (11.7-14.4) % Plt Count (182-369) x10^3/uL MPV (9.4-12.3) fL Ionized Calcium (1.12-1.32) mmol/L Sodium 137 (135-145) mmol/L Potassium 4.0 (3.5-5.1) mmol/L Chloride 107 (98-107) mmol/L Carbon Dioxide 20 L (22-30) mmol/L Anion Gap 13.5 (5-15) MEQ/L BUN 7 (7-17) mg/dL Creatinine 0.55 (0.52-1.04) mg/dL Estimated GFR 125.6 ML/MIN Glucose 107 H (74-106) mg/dL POC Glucometer 112 H (74 to 106) mg/dL Hemoglobin A1c (4.5-6.0) % Calcium 6.1 L (8.4-10.2) mg/dL Phosphorus 2.3 L (2.5-4.5) mg/dL Magnesium 1.9 (1.6-2.3) mg/dL Total Bilirubin (0.2-1.3) mg/dL AST (14-36) U/L ALT (0-35) U/L Alkaline Phosphatase (38-126) U/L Serum Total Protein (6.3-8.2) g/dL Albumin (3.5-5.0) g/dL Triglycerides (30-150) mg/dL Cholesterol (50-200) mg/dL LDL Cholesterol (30-100) mg/dL HDL Cholesterol (40-60) mg/dL Heart Disease Risk Ratio 25-OH Vitamin D Total (30-100) ng/mL 05/08/24 05/08/24 05/08/24 Range/Units 02:11 03:06 04:05 WBC (3.98-10.04) x10^3/uL RBC (3.93-5.22) x10^6/uL Hgb (11.2-15.7) g/dL Hct (34.1-44.9) % MCV (79.4-94.8) fL MCH (25.6-32.2) pg MCHC (32.2-35.5) g/dL RDW (11.7-14.4) % Plt Count (182-369) x10^3/uL MPV (9.4-12.3) fL Ionized Calcium (1.12-1.32) mmol/L Sodium (135-145) mmol/L Potassium (3.5-5.1) mmol/L Chloride (98-107) mmol/L Carbon Dioxide (22-30) mmol/L Anion Gap (5-15) MEQ/L BUN (7-17) mg/dL Creatinine (0.52-1.04) mg/dL Estimated GFR ML/MIN Glucose (74-106) mg/dL POC Glucometer 122 H 129 H 111 H (74 to 106) mg/dL Hemoglobin A1c (4.5-6.0) % Calcium (8.4-10.2) mg/dL Phosphorus (2.5-4.5) mg/dL Magnesium (1.6-2.3) mg/dL Total Bilirubin (0.2-1.3) mg/dL AST (14-36) U/L ALT (0-35) U/L Alkaline Phosphatase (38-126) U/L Serum Total Protein (6.3-8.2) g/dL Albumin (3.5-5.0) g/dL Triglycerides (30-150) mg/dL Cholesterol (50-200) mg/dL LDL Cholesterol (30-100) mg/dL HDL Cholesterol (40-60) mg/dL Heart Disease Risk Ratio 25-OH Vitamin D Total (30-100) ng/mL 05/08/24 05/08/24 05/08/24 Range/Units 04:30 04:30 04:30 WBC 11.2 H (3.98-10.04) x10^3/uL RBC 4.82 (3.93-5.22) x10^6/uL Hgb 14.1 (11.2-15.7) g/dL Hct 41.4 (34.1-44.9) % MCV 85.9 (79.4-94.8) fL MCH 29.3 (25.6-32.2) pg MCHC 34.1 (32.2-35.5) g/dL RDW 13.9 (11.7-14.4) % Plt Count 218 (182-369) x10^3/uL MPV 11.4 (9.4-12.3) fL Ionized Calcium (1.12-1.32) mmol/L Sodium 136 (135-145) mmol/L Potassium 3.9 (3.5-5.1) mmol/L Chloride 106 (98-107) mmol/L Carbon Dioxide 22 (22-30) mmol/L Anion Gap 11.9 (5-15) MEQ/L BUN 6 L (7-17) mg/dL Creatinine 0.54 (0.52-1.04) mg/dL Estimated GFR 126.2 ML/MIN Glucose 129 H (74-106) mg/dL POC Glucometer (74 to 106) mg/dL Hemoglobin A1c (4.5-6.0) % Calcium 6.1 L (8.4-10.2) mg/dL Phosphorus 1.8 L (2.5-4.5) mg/dL Magnesium 1.8 (1.6-2.3) mg/dL Total Bilirubin 1.40 H (0.2-1.3) mg/dL AST 45 H (14-36) U/L ALT 26 (0-35) U/L Alkaline Phosphatase 51 (38-126) U/L Serum Total Protein 6.5 (6.3-8.2) g/dL Albumin 3.3 L (3.5-5.0) g/dL Triglycerides (30-150) mg/dL Cholesterol (50-200) mg/dL LDL Cholesterol (30-100) mg/dL HDL Cholesterol (40-60) mg/dL Heart Disease Risk Ratio 25-OH Vitamin D Total (30-100) ng/mL 05/08/24 05/08/24 05/08/24 Range/Units 04:58 06:04 06:52 WBC (3.98-10.04) x10^3/uL RBC (3.93-5.22) x10^6/uL Hgb (11.2-15.7) g/dL Hct (34.1-44.9) % MCV (79.4-94.8) fL MCH (25.6-32.2) pg MCHC (32.2-35.5) g/dL RDW (11.7-14.4) % Plt Count (182-369) x10^3/uL MPV (9.4-12.3) fL Ionized Calcium (1.12-1.32) mmol/L Sodium (135-145) mmol/L Potassium (3.5-5.1) mmol/L Chloride (98-107) mmol/L Carbon Dioxide (22-30) mmol/L Anion Gap (5-15) MEQ/L BUN (7-17) mg/dL Creatinine (0.52-1.04) mg/dL Estimated GFR ML/MIN Glucose (74-106) mg/dL POC Glucometer 130 H 169 H 188 H (74 to 106) mg/dL Hemoglobin A1c (4.5-6.0) % Calcium (8.4-10.2) mg/dL Phosphorus (2.5-4.5) mg/dL Magnesium (1.6-2.3) mg/dL Total Bilirubin (0.2-1.3) mg/dL AST (14-36) U/L ALT (0-35) U/L Alkaline Phosphatase (38-126) U/L Serum Total Protein (6.3-8.2) g/dL Albumin (3.5-5.0) g/dL Triglycerides (30-150) mg/dL Cholesterol (50-200) mg/dL LDL Cholesterol (30-100) mg/dL HDL Cholesterol (40-60) mg/dL Heart Disease Risk Ratio 25-OH Vitamin D Total (30-100) ng/mL 05/08/24 05/08/24 05/08/24 Range/Units 08:01 09:00 09:00 WBC (3.98-10.04) x10^3/uL RBC (3.93-5.22) x10^6/uL Hgb (11.2-15.7) g/dL Hct (34.1-44.9) % MCV (79.4-94.8) fL MCH (25.6-32.2) pg MCHC (32.2-35.5) g/dL RDW (11.7-14.4) % Plt Count (182-369) x10^3/uL MPV (9.4-12.3) fL Ionized Calcium (1.12-1.32) mmol/L Sodium 132 L (135-145) mmol/L Potassium 4.7 D (3.5-5.1) mmol/L Chloride 108 H (98-107) mmol/L Carbon Dioxide 19 L (22-30) mmol/L Anion Gap 9.4 (5-15) MEQ/L BUN 6 L (7-17) mg/dL Creatinine 0.44 L (0.52-1.04) mg/dL Estimated GFR 132.5 ML/MIN Glucose 396 H (74-106) mg/dL POC Glucometer 234 H (74 to 106) mg/dL Hemoglobin A1c (4.5-6.0) % Calcium 5.6 L* (8.4-10.2) mg/dL Phosphorus 1.6 L (2.5-4.5) mg/dL Magnesium 1.6 (1.6-2.3) mg/dL Total Bilirubin (0.2-1.3) mg/dL AST (14-36) U/L ALT (0-35) U/L Alkaline Phosphatase (38-126) U/L Serum Total Protein (6.3-8.2) g/dL Albumin (3.5-5.0) g/dL Triglycerides 1377 H (30-150) mg/dL Cholesterol 300 H (50-200) mg/dL LDL Cholesterol < 46 (30-100) mg/dL HDL Cholesterol 27 L (40-60) mg/dL Heart Disease Risk Ratio 11.0 25-OH Vitamin D Total (30-100) ng/mL 05/08/24 05/08/24 05/08/24 Range/Units 09:00 09:03 10:04 WBC (3.98-10.04) x10^3/uL RBC (3.93-5.22) x10^6/uL Hgb (11.2-15.7) g/dL Hct (34.1-44.9) % MCV (79.4-94.8) fL MCH (25.6-32.2) pg MCHC (32.2-35.5) g/dL RDW (11.7-14.4) % Plt Count (182-369) x10^3/uL MPV (9.4-12.3) fL Ionized Calcium (1.12-1.32) mmol/L Sodium (135-145) mmol/L Potassium (3.5-5.1) mmol/L Chloride (98-107) mmol/L Carbon Dioxide (22-30) mmol/L Anion Gap (5-15) MEQ/L BUN (7-17) mg/dL Creatinine (0.52-1.04) mg/dL Estimated GFR ML/MIN Glucose (74-106) mg/dL POC Glucometer 214 H 210 H (74 to 106) mg/dL Hemoglobin A1c 10.29 H (4.5-6.0) % Calcium (8.4-10.2) mg/dL Phosphorus (2.5-4.5) mg/dL Magnesium (1.6-2.3) mg/dL Total Bilirubin (0.2-1.3) mg/dL AST (14-36) U/L ALT (0-35) U/L Alkaline Phosphatase (38-126) U/L Serum Total Protein (6.3-8.2) g/dL Albumin (3.5-5.0) g/dL Triglycerides (30-150) mg/dL Cholesterol (50-200) mg/dL LDL Cholesterol (30-100) mg/dL HDL Cholesterol (40-60) mg/dL Heart Disease Risk Ratio 25-OH Vitamin D Total (30-100) ng/mL 05/08/24 05/08/24 05/08/24 Range/Units 11:00 12:18 12:25 WBC (3.98-10.04) x10^3/uL RBC (3.93-5.22) x10^6/uL Hgb (11.2-15.7) g/dL Hct (34.1-44.9) % MCV (79.4-94.8) fL MCH (25.6-32.2) pg MCHC (32.2-35.5) g/dL RDW (11.7-14.4) % Plt Count (182-369) x10^3/uL MPV (9.4-12.3) fL Ionized Calcium 0.86 L (1.12-1.32) mmol/L Sodium (135-145) mmol/L Potassium (3.5-5.1) mmol/L Chloride (98-107) mmol/L Carbon Dioxide (22-30) mmol/L Anion Gap (5-15) MEQ/L BUN (7-17) mg/dL Creatinine (0.52-1.04) mg/dL Estimated GFR ML/MIN Glucose (74-106) mg/dL POC Glucometer 192 H 153 H (74 to 106) mg/dL Hemoglobin A1c (4.5-6.0) % Calcium (8.4-10.2) mg/dL Phosphorus (2.5-4.5) mg/dL Magnesium (1.6-2.3) mg/dL Total Bilirubin (0.2-1.3) mg/dL AST (14-36) U/L ALT (0-35) U/L Alkaline Phosphatase (38-126) U/L Serum Total Protein (6.3-8.2) g/dL Albumin (3.5-5.0) g/dL Triglycerides (30-150) mg/dL Cholesterol (50-200) mg/dL LDL Cholesterol (30-100) mg/dL HDL Cholesterol (40-60) mg/dL Heart Disease Risk Ratio 25-OH Vitamin D Total (30-100) ng/mL 05/08/24 05/08/24 05/08/24 Range/Units 12:26 12:26 12:38 WBC (3.98-10.04) x10^3/uL RBC (3.93-5.22) x10^6/uL Hgb (11.2-15.7) g/dL Hct (34.1-44.9) % MCV (79.4-94.8) fL MCH (25.6-32.2) pg MCHC (32.2-35.5) g/dL RDW (11.7-14.4) % Plt Count (182-369) x10^3/uL MPV (9.4-12.3) fL Ionized Calcium (1.12-1.32) mmol/L Sodium 136 (135-145) mmol/L Potassium 3.8 (3.5-5.1) mmol/L Chloride 110 H (98-107) mmol/L Carbon Dioxide 18 L (22-30) mmol/L Anion Gap 12.0 (5-15) MEQ/L BUN 6 L (7-17) mg/dL Creatinine 0.46 L (0.52-1.04) mg/dL Estimated GFR 131.1 ML/MIN Glucose 155 H (74-106) mg/dL POC Glucometer (74 to 106) mg/dL Hemoglobin A1c (4.5-6.0) % Calcium 6.6 L D (8.4-10.2) mg/dL Phosphorus 2.1 L (2.5-4.5) mg/dL Magnesium 1.9 (1.6-2.3) mg/dL Total Bilirubin 1.30 (0.2-1.3) mg/dL AST 43 H (14-36) U/L ALT 26 (0-35) U/L Alkaline Phosphatase 58 (38-126) U/L Serum Total Protein 6.3 (6.3-8.2) g/dL Albumin 3.2 L (3.5-5.0) g/dL Triglycerides (30-150) mg/dL Cholesterol (50-200) mg/dL LDL Cholesterol (30-100) mg/dL HDL Cholesterol (40-60) mg/dL Heart Disease Risk Ratio 25-OH Vitamin D Total 22.7 L (30-100) ng/mL 05/08/24 05/08/24 05/08/24 Range/Units 14:04 15:10 15:29 WBC (3.98-10.04) x10^3/uL RBC (3.93-5.22) x10^6/uL Hgb (11.2-15.7) g/dL Hct (34.1-44.9) % MCV (79.4-94.8) fL MCH (25.6-32.2) pg MCHC (32.2-35.5) g/dL RDW (11.7-14.4) % Plt Count (182-369) x10^3/uL MPV (9.4-12.3) fL Ionized Calcium (1.12-1.32) mmol/L Sodium (135-145) mmol/L Potassium (3.5-5.1) mmol/L Chloride (98-107) mmol/L Carbon Dioxide (22-30) mmol/L Anion Gap (5-15) MEQ/L BUN (7-17) mg/dL Creatinine (0.52-1.04) mg/dL Estimated GFR ML/MIN Glucose (74-106) mg/dL POC Glucometer 133 H TNP 107 H (74 to 106) mg/dL Hemoglobin A1c (4.5-6.0) % Calcium (8.4-10.2) mg/dL Phosphorus (2.5-4.5) mg/dL Magnesium (1.6-2.3) mg/dL Total Bilirubin (0.2-1.3) mg/dL AST (14-36) U/L ALT (0-35) U/L Alkaline Phosphatase (38-126) U/L Serum Total Protein (6.3-8.2) g/dL Albumin (3.5-5.0) g/dL Triglycerides (30-150) mg/dL Cholesterol (50-200) mg/dL LDL Cholesterol (30-100) mg/dL HDL Cholesterol (40-60) mg/dL Heart Disease Risk Ratio 25-OH Vitamin D Total (30-100) ng/mL 05/08/24 05/08/24 05/08/24 Range/Units 16:26 17:00 17:30 WBC (3.98-10.04) x10^3/uL RBC (3.93-5.22) x10^6/uL Hgb (11.2-15.7) g/dL Hct (34.1-44.9) % MCV (79.4-94.8) fL MCH (25.6-32.2) pg MCHC (32.2-35.5) g/dL RDW (11.7-14.4) % Plt Count (182-369) x10^3/uL MPV (9.4-12.3) fL Ionized Calcium (1.12-1.32) mmol/L Sodium 138 (135-145) mmol/L Potassium 3.4 L (3.5-5.1) mmol/L Chloride 108 H (98-107) mmol/L Carbon Dioxide 22 (22-30) mmol/L Anion Gap 11.6 (5-15) MEQ/L BUN 5 L (7-17) mg/dL Creatinine 0.46 L (0.52-1.04) mg/dL Estimated GFR 131.1 ML/MIN Glucose 111 H (74-106) mg/dL POC Glucometer 106 (74 to 106) mg/dL Hemoglobin A1c (4.5-6.0) % Calcium 6.6 L (8.4-10.2) mg/dL Phosphorus 1.8 L (2.5-4.5) mg/dL Magnesium (1.6-2.3) mg/dL Total Bilirubin 1.20 (0.2-1.3) mg/dL AST 41 H (14-36) U/L ALT 26 (0-35) U/L Alkaline Phosphatase 53 (38-126) U/L Serum Total Protein 6.0 L (6.3-8.2) g/dL Albumin 3.1 L (3.5-5.0) g/dL Triglycerides 1260 H (30-150) mg/dL Cholesterol 308 H (50-200) mg/dL LDL Cholesterol < 46 (30-100) mg/dL HDL Cholesterol 29 L (40-60) mg/dL Heart Disease Risk Ratio 11.0 25-OH Vitamin D Total (30-100) ng/mL 05/08/24 05/08/24 05/08/24 Range/Units 17:32 18:34 19:32 WBC (3.98-10.04) x10^3/uL RBC (3.93-5.22) x10^6/uL Hgb (11.2-15.7) g/dL Hct (34.1-44.9) % MCV (79.4-94.8) fL MCH (25.6-32.2) pg MCHC (32.2-35.5) g/dL RDW (11.7-14.4) % Plt Count (182-369) x10^3/uL MPV (9.4-12.3) fL Ionized Calcium (1.12-1.32) mmol/L Sodium (135-145) mmol/L Potassium (3.5-5.1) mmol/L Chloride (98-107) mmol/L Carbon Dioxide (22-30) mmol/L Anion Gap (5-15) MEQ/L BUN (7-17) mg/dL Creatinine (0.52-1.04) mg/dL Estimated GFR ML/MIN Glucose (74-106) mg/dL POC Glucometer 104 86 95 (74 to 106) mg/dL Hemoglobin A1c (4.5-6.0) % Calcium (8.4-10.2) mg/dL Phosphorus (2.5-4.5) mg/dL Magnesium (1.6-2.3) mg/dL Total Bilirubin (0.2-1.3) mg/dL AST (14-36) U/L ALT (0-35) U/L Alkaline Phosphatase (38-126) U/L Serum Total Protein (6.3-8.2) g/dL Albumin (3.5-5.0) g/dL Triglycerides (30-150) mg/dL Cholesterol (50-200) mg/dL LDL Cholesterol (30-100) mg/dL HDL Cholesterol (40-60) mg/dL Heart Disease Risk Ratio 25-OH Vitamin D Total (30-100) ng/mL 05/08/24 Range/Units 21:01 WBC (3.98-10.04) x10^3/uL RBC (3.93-5.22) x10^6/uL Hgb (11.2-15.7) g/dL Hct (34.1-44.9) % MCV (79.4-94.8) fL MCH (25.6-32.2) pg MCHC (32.2-35.5) g/dL RDW (11.7-14.4) % Plt Count (182-369) x10^3/uL MPV (9.4-12.3) fL Ionized Calcium (1.12-1.32) mmol/L Sodium (135-145) mmol/L Potassium (3.5-5.1) mmol/L Chloride (98-107) mmol/L Carbon Dioxide (22-30) mmol/L Anion Gap (5-15) MEQ/L BUN (7-17) mg/dL Creatinine (0.52-1.04) mg/dL Estimated GFR ML/MIN Glucose (74-106) mg/dL POC Glucometer 93 (74 to 106) mg/dL Hemoglobin A1c (4.5-6.0) % Calcium (8.4-10.2) mg/dL Phosphorus (2.5-4.5) mg/dL Magnesium (1.6-2.3) mg/dL Total Bilirubin (0.2-1.3) mg/dL AST (14-36) U/L ALT (0-35) U/L Alkaline Phosphatase (38-126) U/L Serum Total Protein (6.3-8.2) g/dL Albumin (3.5-5.0) g/dL Triglycerides (30-150) mg/dL Cholesterol (50-200) mg/dL LDL Cholesterol (30-100) mg/dL HDL Cholesterol (40-60) mg/dL Heart Disease Risk Ratio 25-OH Vitamin D Total (30-100) ng/mL Multi-Disciplinary Progress Notes: Multi-Disciplinary Progress Notes 05/08/24 12:55 Case Management Note by Yumiko Farmer PATIENT REQUESTING TO CHANGE PCP. PATIENT WAS SET UP WITH DR. GUEVARA BUT SHE WILL NEED TO CALL AND CHANGER HER PROVIDER WITH HER MEDICAID. SHE WAS GIVEN PHONE NUMBER TO DO SO AND ENCOURAGED TO DO SO PRIOR TO DC. PATIENT INSTRUCTED THAT THIS NEEDS TO BE DONE BEFORE SHE CAN ACTUALLY SEE DR. GUEVARA SCHEDULED. SHE VERIFIED UNDERSTANDING. Initialized on 05/08/24 12:55 - END OF NOTE <SHERI BASS - Last Filed: 05/08/24 21:46> Assessment/Plan (1) DKA (diabetic ketoacidosis) Current Visit: Yes Status: Acute Qualifiers: Diabetes mellitus type: type 2 Assessment & Plan: - DKA resolved - Monitor electrolytes - IVF - Insulin gtt -continue due to hypertriglyceridemia induced pancreatitis - w/ D5 infusion - Q1 hr accuchecks - A1C - lipid panel -Trig - 5408, cholesterol 747, LDL 141, HDL 25 -replenish phos/mag/calc Code(s): E11.10 - TYPE 2 DIABETES MELLITUS WITH KETOACIDOSIS WITHOUT COMA (2) Acute pancreatitis Current Visit: No Status: Acute Assessment & Plan: -as noted on CT -Hypertriglyceridemia-induced -on insulin gtt/D5 -start gemfibrozil 600mg BID when triglycerides <500 -check triglycerides q12 hours -Advised good glycemic control/dietary modifications (fat/carb restricted) - will provide written education on discharge - pt has poor OP follow up- long discussion on importance of compliance - NPO - Dilaudid Code(s): K85.90 - ACUTE PANCREATITIS WITHOUT NECROSIS OR INFECTION, UNSP (3) Abdominal pain Current Visit: Yes Status: Acute Assessment & Plan: - 2:2 Pancreatitis - Zofran, Compazine for nausea - Dilaudid for pain - CT abd. pelvis: 05/06/24 Pelvis: IMPRESSION: Enlarged and edematous head and uncinate process of pancreas with significant surrounding fat stranding and mild fluid collection, representing acute pancreatitis. -see acute pancreatitis for plan Code(s): R10.9 - UNSPECIFIED ABDOMINAL PAIN (4) Urinary tract infection Current Visit: Yes Status: Acute Assessment & Plan: - UC with ECOLI, on ceftriaxone -sensitive, will continue Code(s): N39.0 - URINARY TRACT INFECTION, SITE NOT SPECIFIED (5) Obesity (BMI 30.0-34.9) Current Visit: Yes Status: Chronic Assessment & Plan: - advised ADA diet/restricted fat, and exercise Code(s): E66.9 - OBESITY, UNSPECIFIED (6) Type II diabetes mellitus Current Visit: Yes Status: Chronic Qualifiers: Diabetes mellitus paperhanger insulin use: with retirement use Diabetes mellitus complication status: with ketoacidosis Diabetes mellitus complication detail: without coma Qualified Code(s): E11.10 - Type 2 diabetes mellitus with ketoacidosis without coma; 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.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 Assessment & Plan: - A1C pending - NPO as in DKA- on DKA protocol - Will need refills of insulin at d/c since she is out -Advised follow up with endocrinology - multiple hospitalizations due to poor compliance/follow up (7) Hypocalcemia Current Visit: Yes Status: Acute Assessment & Plan: -In the setting of acute pancreatitis -Lab reviewed, level at 5.6 - 1G of calcium gluconate -pth/vit d ordered Code(s): E83.51 - HYPOCALCEMIA (8) Hyperlipidemia associated with type 2 diabetes mellitus Current Visit: No Status: Acute Assessment & Plan: -gemfibrozil BID for mixed dyslipidemia once triglycerides <500 VTE: Lovenox PPI: Protonix Next of KIN: Dinesh Ley [phone] D/C plan: 1-2 days Code status: Full Code(s): E11.69 - TYPE 2 DIABETES MELLITUS WITH OTHER SPECIFIED COMPLICATION; E78.5 - HYPERLIPIDEMIA, UNSPECIFIED <MILTON GRANT - Last Filed: 05/08/24 12:09> ENEIDA Encounter - ENEIDA Encounter Attestation ENEIDA Encounter Attestation: "IhavepersonallyseenandexRENETTA Frank andhavediscussed pertinent aspects of their care with Milton Parikh agree with the history, physical exam (any modifications based on my personal exam will be noted below), assessment, and plan as outlined in original note. Please see immediately below for my summary of findings and additional assessment and plan along with any meaningful corrections/explanations to the Subjective/Objective portions of the ENEIDA note will be noted." My portion of the encounter took place via telemedicine. -Patient denied any epigastric pain today, had mild lower abdominal pain. DKA resolved however restarted insulin this morning to help treat hypertriglyceridemia which is causing her pancreatitis. Check trig levels every 12 hours, stop insulin drip when levels less than 500. <SHERI BASS - Last Filed: 05/08/24 21:46>
[2024-05-08] MEDS: HUMALOG SQ PRN (06:09)
[2024-05-08 09:30] LABS: ANION GAP 9.4 MEQ/L (5-15); Creatinine 1 0.44 mg/dL (0.52-1.04); EST GLOMERULAR FILTRATION RATE 132.5 ML/MIN; MAGNESIUM 1.6 mg/dL (1.6-2.3); PHOSPHOROUS 1.6 mg/dL (2.5-4.5); Potassium 4.7 mmol/L (3.5-5.1)
[2024-05-08 09:37] LABS: Calcium 5.6 mg/dL (8.4-10.2)
[2024-05-08] MEDS ORDERED: Magnesium Sulfate 1 GM/2 ML VIAL IV ONE (10:10)
[2024-05-08] MEDS: FISH OIL 1,000 MG CAPSULE PO SCH (10:25)
[2024-05-08] MEDS: CALCIUM GLUCONATE IV ONE (11:17)
[2024-05-08] MEDS: SODIUM CHLORIDE MINI IV ONE (11:17)
[2024-05-08 11:34] LABS: Cholesterol 300 mg/dL (50-200); HDL CHOLESTEROL 27 mg/dL (40-60); LDL, DIRECT < 46 mg/dL (30-100)
[2024-05-08 11:37] LABS: TRIGLYCERIDE 1377 mg/dL (30-150)
[2024-05-08] MEDS: Magnesium 1 Gm / 100 Ml D5W*** 100 ML IV SCH (12:21)
[2024-05-08] MEDS: MYXREDLIN 100 UNIT/100 ML BAG 100 UNIT/100 ML PLAST..BAG IV SCH (12:22)
[2024-05-08] MEDS: Dextrose 5% -0.45 NaCl 1000 ML 1,000 ML IV SCH ×2 (12:23→20:13)
[2024-05-08] MEDS: LOPID PO SCH (12:57)
[2024-05-08 12:58] LABS: MAGNESIUM 1.9 mg/dL (1.6-2.3); PHOSPHOROUS 2.1 mg/dL (2.5-4.5)
[2024-05-08] MEDS: Neutra-Phos Packet PO ONE ×2 (12:58→20:13)
[2024-05-08] MEDS: VITAMIN D2 PO SCH (15:16)
[2024-05-08 15:17] LABS: ALBUMIN 3.2 g/dL (3.5-5.0); BILIRUBIN,TOTAL 1.3 mg/dL (0.2-1.3); Calcium 6.6 mg/dL (8.4-10.2); Creatinine 1 0.46 mg/dL (0.52-1.04); EST GLOMERULAR FILTRATION RATE 131.1 ML/MIN; Potassium 3.8 mmol/L (3.5-5.1); Total Protein 6.3 g/dL (6.3-8.2)
[2024-05-08] MEDS: Calcium Gluconate 10% 1000 MG 1,000 MG in Sodium Chloride 0.9% 100 ML IV ONE (17:22)
[2024-05-08 17:23] LABS: ALBUMIN 3.1 g/dL (3.5-5.0); ANION GAP 11.6 MEQ/L (5-15); BILIRUBIN,TOTAL 1.2 mg/dL (0.2-1.3); Calcium 6.6 mg/dL (8.4-10.2); Creatinine 1 0.46 mg/dL (0.52-1.04); EST GLOMERULAR FILTRATION RATE 131.1 ML/MIN; PHOSPHOROUS 1.8 mg/dL (2.5-4.5); Potassium 3.4 mmol/L (3.5-5.1)
[2024-05-08 18:59] LABS: Cholesterol 308 mg/dL (50-200); HDL CHOLESTEROL 29 mg/dL (40-60); LDL, DIRECT < 46 mg/dL (30-100)
[2024-05-08 19:06] LABS: TRIGLYCERIDE 1260 mg/dL (30-150)
[2024-05-08] MEDS ORDERED: MYXREDLIN 100 UNIT/100 ML BAG 100 UNIT/100 ML PLAST..BAG IV PRN (19:54)
[2024-05-08] MEDS ORDERED: Lantus Insulin SQ SCH (22:00)
[2024-05-08 23:33] LABS: Cholesterol 318 mg/dL (50-200); HDL CHOLESTEROL 29 mg/dL (40-60); LDL, DIRECT < 46 mg/dL (30-100); TRIGLYCERIDE 1163 mg/dL (30-150)
[2024-05-09] MEDS: MYXREDLIN 100 UNIT/100 ML BAG 100 UNIT/100 ML PLAST..BAG IV PRN (02:21)
[2024-05-09 04:49] LABS: Absolute Neutrophil Ct (ANC) 7.23 x10^3/uL (1.56-6.13); BASOPHIL % 0.2 % (0.1-1.2); Basophil (Absolute #) 0.02 x10^3/uL (0.01-0.08); Eosinophil % 0.5 % (0.7-5.8); Eosinophil (Absolute #) 0.04 x10^3/uL (0.04-0.36); Hematocrit 34.8 % (34.1-44.9); Hemoglobin 11.6 g/dL (11.2-15.7); IMMATURE GRAN # 0.05 x10^3u/L (0.001-0.031); IMMATURE GRAN % 0.6 % (0.001-0.429); Lymphocyte (Absolute #) 0.95 x10^3/uL (1.18-3.74); Lymphocytes % 10.8 % (19.3-51.7); Mean Cell Volume 87.7 fL (79.4-94.8); Mean Corpuscular Hemoglobin 29.2 pg (25.6-32.2); Mean Corpuscular Hgb Concent. 33.3 g/dL (32.2-35.5); Mean Platelet Volume 11.4 fL (9.4-12.3); Monocyte (Absolute #) 0.48 x10^3/uL (0.24-0.86); Monocytes % 5.5 % (4.7-12.5); Neutrophil % 82.4 % (34.0-71.1); Platelet Count 188 x10^3/uL (182-369); Red Blood Count 3.97 x10^6/uL (3.93-5.22); Red Cell Distribution Width 14.2 % (11.7-14.4); White Blood Count 8.8 x10^3/uL (3.98-10.04)
[2024-05-09 05:29] LABS: ALBUMIN 3.2 g/dL (3.5-5.0); ALKALINE PHOSPHATASE 55 U/L (38-126); BLOOD UREA NITROGEN 3 mg/dL (7-17); CHLORIDE 108 mmol/L (98-107); Calcium 7.1 mg/dL (8.4-10.2); Carbon Dioxide 22 mmol/L (22-30); Creatinine 1 0.45 mg/dL (0.52-1.04); EST GLOMERULAR FILTRATION RATE 131.8 ML/MIN; Glucose 104 mg/dL (74-106); MAGNESIUM 2.3 mg/dL (1.6-2.3); PHOSPHOROUS 2.3 mg/dL (2.5-4.5); Potassium 3.2 mmol/L (3.5-5.1); SGOT/AST 40 U/L (14-36); SGPT/ALT 25 U/L (0-35); SODIUM 138 mmol/L (135-145); Total Protein 6.3 g/dL (6.3-8.2)
--- NOTE | 2024-05-09 05:31 | PCM.NOTE ---
Date and Time: 05/09/24 0530 Subjective Assessment: is a 33 year old female with PMHX of Type II DM and chronic obesity admitted 05/06/24 for DKA after experiencing RUQ pain with nausea. Patient has had multiple admission for DKA due to noncompliance with medications and follow up with PCP. On current admission patient states she has been out of her Humalog and Lantus for one month. CT of the abdomen and pelvis noting acute pancreatitis, of note lipase WNL- triglycerides 5408 - most likely Hypertriglyceridemia-induced acute pancreatitis. Plan to start gemfibrozil 600mg BID and dietary modification (fat and carb restricted diet). UA suspicious for UTI. IP treatment with insulin gtt per protocol/IVF for pancreatitis. Ceftriaxone for UTI. Patient will need follow up on discharge as she no longer wishes to return to her current PCP. Advise follow up with endocrinology. 05/08/24: Met with patient bedside. Endorses continued abdominal pain, nausea with an episode of vomiting last night. She is unable to tolerate a diet. Hypertriglyceridemia-induced acute pancreatitis - will continue insulin drip/D5 and keep patient NPO for now. Triglycerides improved to [id number]. Will start gemfibrozil with triglycerides are less than 500. Long discussion regarding the importance of follow up and medication compliance. Patient is agreeable to see endocrinology. Denies fever,cough, sob, cp,PARISH, dizziness, or diarrhea. 05/09/24: No overnight events noted. Patient states she is feeling much better today, mild tenderness to lower abdomen. No urinary symptoms. She would like to try CLD. Discussed labs- triglycerides/calcium/phos/potassium are improving. Plan for replenishment of CA/phos/potassium today. Continue Insulin drip/D5 with KCL. Continue ceftriaxone for UTI. Denies fever,cough, sob, cp, abdominal pain, PARISH, dizziness, N/V/D. - Review of Systems Constitutional: No Symptoms Eyes: No Symptoms Ears, Nose, & Throat: No Symptoms Respiratory: No Symptoms Cardiac: No Symptoms Abdominal/Gastrointestinal: Abdominal Pain Genitourinary Symptoms: No Symptoms Musculoskeletal: No Symptoms Skin: No Symptoms Neurological: No Symptoms Psychological: No Symptoms Endocrine: No Symptoms Hematologic/Lymphatic: No Symptoms Immunological/Allergic: No Symptoms Objective Exam General Appearance: no apparent distress Neurologic Exam: alert, oriented x 3, cooperative Skin Exam: normal color Eye Exam: PERRL Ears, Nose, Throat Exam: normal ENT inspection Neck Exam: normal inspection Respiratory Exam: normal breath sounds, lungs clear Cardiovascular Exam: regular rate/rhythm, normal heart sounds Gastrointestinal/Abdomen Exam: soft, normal bowel sounds Extremity Exam: normal inspection Back Exam: normal inspection Pelvic Exam: deferred Rectal Exam: deferred Objective Data Vital Signs: Vital Signs - 24 hr Temp Pulse Resp BP Pulse Ox 05/09/24 04:00 94 H 17 134/76 89 L 05/09/24 02:01 117/80 93 L 05/09/24 00:00 92 H 113/74 90 L 05/08/24 23:00 96 H 05/08/24 22:00 98.1 F 94 H 25 H 116/70 94 L 05/08/24 20:00 87 19 113/73 94 L 05/08/24 18:00 89 20 109/72 97 05/08/24 16:10 91 H 05/08/24 16:08 91 H 20 98/46 97 05/08/24 16:00 94 H 22 85/51 97 05/08/24 14:00 98 H 30 H 118/78 05/08/24 12:30 93 H 05/08/24 12:00 93 H 23 118/82 05/08/24 10:58 101 H 22 114/76 95 05/08/24 10:00 93 H 21 89/65 05/08/24 08:00 98.7 F 95 H 16 106/80 05/08/24 07:19 105 H 28 H 106/63 93 L 05/08/24 06:00 98.0 F 102 H 21 93/63 93 L Pain Assessment - Last Documented Pain Intensity 2 Pain Scale Used 0-10 Pain Scale Intake and Output: Intake & Output 05/06/24 05/07/24 05/08/24 05/09/24 11:59 11:59 11:59 11:59 Intake Total 493 1585 2162 Output Total 209 367 8501 Balance 93 985 162 Weight 87 kg 88.9 kg 88.9 kg Lab Results: Lab Results-Last 24 Hours 05/08/24 05/08/24 05/08/24 Range/Units 06:04 06:52 08:01 Ionized Calcium (1.12-1.32) mmol/L Sodium (135-145) mmol/L Potassium (3.5-5.1) mmol/L Chloride (98-107) mmol/L Carbon Dioxide (22-30) mmol/L Anion Gap (5-15) MEQ/L BUN (7-17) mg/dL Creatinine (0.52-1.04) mg/dL Estimated GFR ML/MIN Glucose (74-106) mg/dL POC Glucometer 169 H 188 H 234 H (74 to 106) mg/dL Hemoglobin A1c (4.5-6.0) % Calcium (8.4-10.2) mg/dL Phosphorus (2.5-4.5) mg/dL Magnesium (1.6-2.3) mg/dL Total Bilirubin (0.2-1.3) mg/dL AST (14-36) U/L ALT (0-35) U/L Alkaline Phosphatase (38-126) U/L Serum Total Protein (6.3-8.2) g/dL Albumin (3.5-5.0) g/dL Triglycerides (30-150) mg/dL Cholesterol (50-200) mg/dL LDL Cholesterol (30-100) mg/dL HDL Cholesterol (40-60) mg/dL Heart Disease Risk Ratio 25-OH Vitamin D Total (30-100) ng/mL 05/08/24 05/08/24 05/08/24 Range/Units 09:00 09:00 09:00 Ionized Calcium (1.12-1.32) mmol/L Sodium 132 L (135-145) mmol/L Potassium 4.7 D (3.5-5.1) mmol/L Chloride 108 H (98-107) mmol/L Carbon Dioxide 19 L (22-30) mmol/L Anion Gap 9.4 (5-15) MEQ/L BUN 6 L (7-17) mg/dL Creatinine 0.44 L (0.52-1.04) mg/dL Estimated GFR 132.5 ML/MIN Glucose 396 H (74-106) mg/dL POC Glucometer (74 to 106) mg/dL Hemoglobin A1c 10.29 H (4.5-6.0) % Calcium 5.6 L* (8.4-10.2) mg/dL Phosphorus 1.6 L (2.5-4.5) mg/dL Magnesium 1.6 (1.6-2.3) mg/dL Total Bilirubin (0.2-1.3) mg/dL AST (14-36) U/L ALT (0-35) U/L Alkaline Phosphatase (38-126) U/L Serum Total Protein (6.3-8.2) g/dL Albumin (3.5-5.0) g/dL Triglycerides 1377 H (30-150) mg/dL Cholesterol 300 H (50-200) mg/dL LDL Cholesterol < 46 (30-100) mg/dL HDL Cholesterol 27 L (40-60) mg/dL Heart Disease Risk Ratio 11.0 25-OH Vitamin D Total (30-100) ng/mL 05/08/24 05/08/24 05/08/24 Range/Units 09:03 10:04 11:00 Ionized Calcium (1.12-1.32) mmol/L Sodium (135-145) mmol/L Potassium (3.5-5.1) mmol/L Chloride (98-107) mmol/L Carbon Dioxide (22-30) mmol/L Anion Gap (5-15) MEQ/L BUN (7-17) mg/dL Creatinine (0.52-1.04) mg/dL Estimated GFR ML/MIN Glucose (74-106) mg/dL POC Glucometer 214 H 210 H 192 H (74 to 106) mg/dL Hemoglobin A1c (4.5-6.0) % Calcium (8.4-10.2) mg/dL Phosphorus (2.5-4.5) mg/dL Magnesium (1.6-2.3) mg/dL Total Bilirubin (0.2-1.3) mg/dL AST (14-36) U/L ALT (0-35) U/L Alkaline Phosphatase (38-126) U/L Serum Total Protein (6.3-8.2) g/dL Albumin (3.5-5.0) g/dL Triglycerides (30-150) mg/dL Cholesterol (50-200) mg/dL LDL Cholesterol (30-100) mg/dL HDL Cholesterol (40-60) mg/dL Heart Disease Risk Ratio 25-OH Vitamin D Total (30-100) ng/mL 05/08/24 05/08/24 05/08/24 Range/Units 12:18 12:25 12:26 Ionized Calcium 0.86 L (1.12-1.32) mmol/L Sodium (135-145) mmol/L Potassium (3.5-5.1) mmol/L Chloride (98-107) mmol/L Carbon Dioxide (22-30) mmol/L Anion Gap (5-15) MEQ/L BUN (7-17) mg/dL Creatinine (0.52-1.04) mg/dL Estimated GFR ML/MIN Glucose (74-106) mg/dL POC Glucometer 153 H (74 to 106) mg/dL Hemoglobin A1c (4.5-6.0) % Calcium (8.4-10.2) mg/dL Phosphorus 2.1 L (2.5-4.5) mg/dL Magnesium 1.9 (1.6-2.3) mg/dL Total Bilirubin (0.2-1.3) mg/dL AST (14-36) U/L ALT (0-35) U/L Alkaline Phosphatase (38-126) U/L Serum Total Protein (6.3-8.2) g/dL Albumin (3.5-5.0) g/dL Triglycerides (30-150) mg/dL Cholesterol (50-200) mg/dL LDL Cholesterol (30-100) mg/dL HDL Cholesterol (40-60) mg/dL Heart Disease Risk Ratio 25-OH Vitamin D Total (30-100) ng/mL 05/08/24 05/08/24 05/08/24 Range/Units 12:26 12:38 14:04 Ionized Calcium (1.12-1.32) mmol/L Sodium 136 (135-145) mmol/L Potassium 3.8 (3.5-5.1) mmol/L Chloride 110 H (98-107) mmol/L Carbon Dioxide 18 L (22-30) mmol/L Anion Gap 12.0 (5-15) MEQ/L BUN 6 L (7-17) mg/dL Creatinine 0.46 L (0.52-1.04) mg/dL Estimated GFR 131.1 ML/MIN Glucose 155 H (74-106) mg/dL POC Glucometer 133 H (74 to 106) mg/dL Hemoglobin A1c (4.5-6.0) % Calcium 6.6 L D (8.4-10.2) mg/dL Phosphorus (2.5-4.5) mg/dL Magnesium (1.6-2.3) mg/dL Total Bilirubin 1.30 (0.2-1.3) mg/dL AST 43 H (14-36) U/L ALT 26 (0-35) U/L Alkaline Phosphatase 58 (38-126) U/L Serum Total Protein 6.3 (6.3-8.2) g/dL Albumin 3.2 L (3.5-5.0) g/dL Triglycerides (30-150) mg/dL Cholesterol (50-200) mg/dL LDL Cholesterol (30-100) mg/dL HDL Cholesterol (40-60) mg/dL Heart Disease Risk Ratio 25-OH Vitamin D Total 22.7 L (30-100) ng/mL 05/08/24 05/08/24 05/08/24 Range/Units 15:10 15:29 16:26 Ionized Calcium (1.12-1.32) mmol/L Sodium (135-145) mmol/L Potassium (3.5-5.1) mmol/L Chloride (98-107) mmol/L Carbon Dioxide (22-30) mmol/L Anion Gap (5-15) MEQ/L BUN (7-17) mg/dL Creatinine (0.52-1.04) mg/dL Estimated GFR ML/MIN Glucose (74-106) mg/dL POC Glucometer TNP 107 H 106 (74 to 106) mg/dL Hemoglobin A1c (4.5-6.0) % Calcium (8.4-10.2) mg/dL Phosphorus (2.5-4.5) mg/dL Magnesium (1.6-2.3) mg/dL Total Bilirubin (0.2-1.3) mg/dL AST (14-36) U/L ALT (0-35) U/L Alkaline Phosphatase (38-126) U/L Serum Total Protein (6.3-8.2) g/dL Albumin (3.5-5.0) g/dL Triglycerides (30-150) mg/dL Cholesterol (50-200) mg/dL LDL Cholesterol (30-100) mg/dL HDL Cholesterol (40-60) mg/dL Heart Disease Risk Ratio 25-OH Vitamin D Total (30-100) ng/mL 05/08/24 05/08/24 05/08/24 Range/Units 17:00 17:30 17:32 Ionized Calcium (1.12-1.32) mmol/L Sodium 138 (135-145) mmol/L Potassium 3.4 L (3.5-5.1) mmol/L Chloride 108 H (98-107) mmol/L Carbon Dioxide 22 (22-30) mmol/L Anion Gap 11.6 (5-15) MEQ/L BUN 5 L (7-17) mg/dL Creatinine 0.46 L (0.52-1.04) mg/dL Estimated GFR 131.1 ML/MIN Glucose 111 H (74-106) mg/dL POC Glucometer 104 (74 to 106) mg/dL Hemoglobin A1c (4.5-6.0) % Calcium 6.6 L (8.4-10.2) mg/dL Phosphorus 1.8 L (2.5-4.5) mg/dL Magnesium (1.6-2.3) mg/dL Total Bilirubin 1.20 (0.2-1.3) mg/dL AST 41 H (14-36) U/L ALT 26 (0-35) U/L Alkaline Phosphatase 53 (38-126) U/L Serum Total Protein 6.0 L (6.3-8.2) g/dL Albumin 3.1 L (3.5-5.0) g/dL Triglycerides 1260 H (30-150) mg/dL Cholesterol 308 H (50-200) mg/dL LDL Cholesterol < 46 (30-100) mg/dL HDL Cholesterol 29 L (40-60) mg/dL Heart Disease Risk Ratio 11.0 25-OH Vitamin D Total (30-100) ng/mL 05/08/24 05/08/24 05/08/24 Range/Units 18:34 19:32 21:01 Ionized Calcium (1.12-1.32) mmol/L Sodium (135-145) mmol/L Potassium (3.5-5.1) mmol/L Chloride (98-107) mmol/L Carbon Dioxide (22-30) mmol/L Anion Gap (5-15) MEQ/L BUN (7-17) mg/dL Creatinine (0.52-1.04) mg/dL Estimated GFR ML/MIN Glucose (74-106) mg/dL POC Glucometer 86 95 93 (74 to 106) mg/dL Hemoglobin A1c (4.5-6.0) % Calcium (8.4-10.2) mg/dL Phosphorus (2.5-4.5) mg/dL Magnesium (1.6-2.3) mg/dL Total Bilirubin (0.2-1.3) mg/dL AST (14-36) U/L ALT (0-35) U/L Alkaline Phosphatase (38-126) U/L Serum Total Protein (6.3-8.2) g/dL Albumin (3.5-5.0) g/dL Triglycerides (30-150) mg/dL Cholesterol (50-200) mg/dL LDL Cholesterol (30-100) mg/dL HDL Cholesterol (40-60) mg/dL Heart Disease Risk Ratio 25-OH Vitamin D Total (30-100) ng/mL 05/08/24 05/08/24 05/08/24 Range/Units 22:03 22:58 23:05 Ionized Calcium (1.12-1.32) mmol/L Sodium (135-145) mmol/L Potassium (3.5-5.1) mmol/L Chloride (98-107) mmol/L Carbon Dioxide (22-30) mmol/L Anion Gap (5-15) MEQ/L BUN (7-17) mg/dL Creatinine (0.52-1.04) mg/dL Estimated GFR ML/MIN Glucose (74-106) mg/dL POC Glucometer 96 91 (74 to 106) mg/dL Hemoglobin A1c (4.5-6.0) % Calcium (8.4-10.2) mg/dL Phosphorus (2.5-4.5) mg/dL Magnesium (1.6-2.3) mg/dL Total Bilirubin (0.2-1.3) mg/dL AST (14-36) U/L ALT (0-35) U/L Alkaline Phosphatase (38-126) U/L Serum Total Protein (6.3-8.2) g/dL Albumin (3.5-5.0) g/dL Triglycerides 1163 H (30-150) mg/dL Cholesterol 318 H (50-200) mg/dL LDL Cholesterol < 46 (30-100) mg/dL HDL Cholesterol 29 L (40-60) mg/dL Heart Disease Risk Ratio 11.0 25-OH Vitamin D Total (30-100) ng/mL 05/09/24 05/09/24 05/09/24 Range/Units 00:01 01:56 03:06 Ionized Calcium (1.12-1.32) mmol/L Sodium (135-145) mmol/L Potassium (3.5-5.1) mmol/L Chloride (98-107) mmol/L Carbon Dioxide (22-30) mmol/L Anion Gap (5-15) MEQ/L BUN (7-17) mg/dL Creatinine (0.52-1.04) mg/dL Estimated GFR ML/MIN Glucose (74-106) mg/dL POC Glucometer 106 100 96 (74 to 106) mg/dL Hemoglobin A1c (4.5-6.0) % Calcium (8.4-10.2) mg/dL Phosphorus (2.5-4.5) mg/dL Magnesium (1.6-2.3) mg/dL Total Bilirubin (0.2-1.3) mg/dL AST (14-36) U/L ALT (0-35) U/L Alkaline Phosphatase (38-126) U/L Serum Total Protein (6.3-8.2) g/dL Albumin (3.5-5.0) g/dL Triglycerides (30-150) mg/dL Cholesterol (50-200) mg/dL LDL Cholesterol (30-100) mg/dL HDL Cholesterol (40-60) mg/dL Heart Disease Risk Ratio 25-OH Vitamin D Total (30-100) ng/mL 05/09/24 05/09/24 Range/Units 04:11 05:04 Ionized Calcium (1.12-1.32) mmol/L Sodium (135-145) mmol/L Potassium (3.5-5.1) mmol/L Chloride (98-107) mmol/L Carbon Dioxide (22-30) mmol/L Anion Gap (5-15) MEQ/L BUN (7-17) mg/dL Creatinine (0.52-1.04) mg/dL Estimated GFR ML/MIN Glucose (74-106) mg/dL POC Glucometer 117 H 97 (74 to 106) mg/dL Hemoglobin A1c (4.5-6.0) % Calcium (8.4-10.2) mg/dL Phosphorus (2.5-4.5) mg/dL Magnesium (1.6-2.3) mg/dL Total Bilirubin (0.2-1.3) mg/dL AST (14-36) U/L ALT (0-35) U/L Alkaline Phosphatase (38-126) U/L Serum Total Protein (6.3-8.2) g/dL Albumin (3.5-5.0) g/dL Triglycerides (30-150) mg/dL Cholesterol (50-200) mg/dL LDL Cholesterol (30-100) mg/dL HDL Cholesterol (40-60) mg/dL Heart Disease Risk Ratio 25-OH Vitamin D Total (30-100) ng/mL Multi-Disciplinary Progress Notes: Multi-Disciplinary Progress Notes 05/08/24 12:55 Case Management Note by Yumiko Farmer PATIENT REQUESTING TO CHANGE PCP. PATIENT WAS SET UP WITH DR. GUEVARA BUT SHE WILL NEED TO CALL AND CHANGER HER PROVIDER WITH HER MEDICAID. SHE WAS GIVEN PHONE NUMBER TO DO SO AND ENCOURAGED TO DO SO PRIOR TO DC. PATIENT INSTRUCTED THAT THIS NEEDS TO BE DONE BEFORE SHE CAN ACTUALLY SEE DR. GUEVARA SCHEDULED. SHE VERIFIED UNDERSTANDING. Initialized on 05/08/24 12:55 - END OF NOTE Assessment/Plan (1) DKA (diabetic ketoacidosis) Current Visit: Yes Status: Acute Qualifiers: Diabetes mellitus type: type 2 Assessment & Plan: - DKA resolved - Monitor electrolytes - IVF - Insulin gtt -continue due to hypertriglyceridemia induced pancreatitis - w/ D5 infusion - Q1 hr accuchecks - A1C - lipid panel -Trig - 5408, cholesterol 747, LDL 141, HDL 25 -replenish phos/mag/calc 05/09: -Replenish phos/idania/potas Code(s): E11.10 - TYPE 2 DIABETES MELLITUS WITH KETOACIDOSIS WITHOUT COMA (2) Acute pancreatitis Current Visit: No Status: Acute Assessment & Plan: -as noted on CT -Hypertriglyceridemia-induced -on insulin gtt/D5 -start gemfibrozil 600mg BID when triglycerides <500 -check triglycerides q12 hours -Advised good glycemic control/dietary modifications (fat/carb restricted) - will provide written education on discharge - pt has poor OP follow up- long discussion on importance of compliance - NPO - Dilaudid 05/09: -Triglycerides q12H improving 1079<1163<5408, once less than 500 can discontinue insulin drip -advance diet as tolerated -continue insulin drip at 4 units/hr/fluids d5 with kcl at 150 Code(s): K85.90 - ACUTE PANCREATITIS WITHOUT NECROSIS OR INFECTION, UNSP (3) Abdominal pain Current Visit: Yes Status: Acute Assessment & Plan: - 2:2 Pancreatitis - Zofran, Compazine for nausea - Dilaudid for pain - CT abd. pelvis: 05/06/24 Pelvis: IMPRESSION: Enlarged and edematous head and uncinate process of pancreas with significant surrounding fat stranding and mild fluid collection, representing acute pancreatitis. 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: with interpersonal 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 Diabetes mellitus complication status: with ketoacidosis Diabetes mellitus complication detail: without coma Qualified Code(s): E11.10 - Type 2 diabetes mellitus with ketoacidosis without coma; Z79.4 - [facility] (current) use of insulin Assessment & Plan: - A1C pending - NPO as in DKA- on DKA protocol - Will need refills of insulin at d/c since she is out -Advised follow up with endocrinology - multiple hospitalizations due to poor compliance/follow up 05/09: -DKA has resolved - insulin drip continued for Hypertiglyceridemia induced panc reatitis - drip changed to 4u/hr/ fluids now d5 w KCL at 150 (7) Hypocalcemia Current Visit: Yes Status: Acute Assessment & Plan: -In the setting of acute pancreatitis -Lab reviewed, level at 5.6 - 1G of calcium gluconate -pth/vit d ordered 05/09: -vitamin d level low, ordered 54688h weekly x 8 weeks -corrected idania at 7.7, will replenish -continue tele - monitor closely Code(s): E83.51 - HYPOCALCEMIA (8) Hyperlipidemia associated with type 2 diabetes mellitus Current Visit: No Status: Acute Assessment & Plan: -gemfibrozil BID for mixed dyslipidemia once triglycerides <500 VTE: Lovenox PPI: Protonix Next of KIN: Dinesh Ley [phone] D/C plan: 1-2 days Code status: Full Code(s): E11.10 - TYPE 2 DIABETES MELLITUS WITH KETOACIDOSIS WITHOUT COMA (2) Acute pancreatitis Current Visit: No Status: Acute Code(s): K85.90 - ACUTE PANCREATITIS WITHOUT NECROSIS OR INFECTION, UNSP (3) Abdominal pain Current Visit: Yes Status: Acute Code(s): R10.9 - UNSPECIFIED ABDOMINAL PAIN (4) Urinary tract infection Current Visit: Yes Status: Acute Code(s): N39.0 - URINARY TRACT INFECTION, SITE NOT SPECIFIED (5) Obesity (BMI 30.0-34.9) Current Visit: Yes Status: Chronic Code(s): E66.9 - OBESITY, UNSPECIFIED (6) Type II diabetes mellitus Current Visit: Yes Status: Chronic Qualifiers: 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 communications 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
[2024-05-09 06:45] LABS: Cholesterol 320 mg/dL (50-200); HDL CHOLESTEROL 28 mg/dL (40-60); LDL, DIRECT < 46 mg/dL (30-100)
[2024-05-09 06:47] LABS: TRIGLYCERIDE 1079 mg/dL (30-150)
[2024-05-09] MEDS: Glutose 15 GM ORAL GEL PO ONE (07:07)
[2024-05-09] MEDS: Calcium Gluconate 10% 1000 MG 1,000 MG in Sodium Chloride 0.9% 100 ML IV ONE (08:21)
[2024-05-09] MEDS: DEXTROSE 5% -NACL 0.9% 1000 ML + KCl 20 MEQ 1,000 ML IV SCH (08:21)
[2024-05-09] MEDS: Neutra-Phos Packet PO ONE (08:21)
[2024-05-09] MEDS: Klor Con PO SCH (08:21)
[2024-05-09 17:10] LABS: ALBUMIN 3.1 g/dL (3.5-5.0); BILIRUBIN,TOTAL 1.1 mg/dL (0.2-1.3); Calcium 7.4 mg/dL (8.4-10.2); Creatinine 1 0.5 mg/dL (0.52-1.04); EST GLOMERULAR FILTRATION RATE 128.5 ML/MIN; Potassium 3.7 mmol/L (3.5-5.1); Total Protein 6.1 g/dL (6.3-8.2)
[2024-05-09] MEDS: Neutra-Phos Packet PO SCH (21:08)
[2024-05-10 05:17] LABS: Absolute Neutrophil Ct (ANC) 6.58 x10^3/uL (1.56-6.13); BASOPHIL % 0.3 % (0.1-1.2); Basophil (Absolute #) 0.03 x10^3/uL (0.01-0.08); Eosinophil % 1.1 % (0.7-5.8); Hematocrit 32.2 % (34.1-44.9); Hemoglobin 10.5 g/dL (11.2-15.7); IMMATURE GRAN # 0.23 x10^3u/L (0.001-0.031); IMMATURE GRAN % 2.6 % (0.001-0.429); Lymphocyte (Absolute #) 1.24 x10^3/uL (1.18-3.74); Lymphocytes % 14.1 % (19.3-51.7); Mean Cell Volume 87.7 fL (79.4-94.8); Mean Corpuscular Hemoglobin 28.6 pg (25.6-32.2); Mean Corpuscular Hgb Concent. 32.6 g/dL (32.2-35.5); Mean Platelet Volume 10.5 fL (9.4-12.3); Monocyte (Absolute #) 0.63 x10^3/uL (0.24-0.86); Monocytes % 7.2 % (4.7-12.5); Neutrophil % 74.7 % (34.0-71.1); Platelet Count 210 x10^3/uL (182-369); Red Blood Count 3.67 x10^6/uL (3.93-5.22); White Blood Count 8.8 x10^3/uL (3.98-10.04)
--- NOTE | 2024-05-10 05:40 | PCM.NOTE ---
Date and Time: 05/10/24 0539 Subjective Assessment: is a 33 year old female with PMHX of Type II DM and chronic obesity admitted 05/06/24 for DKA after experiencing RUQ pain with nausea. Patient has had multiple admission for DKA due to noncompliance with medications and follow up with PCP. On current admission patient states she has been out of her Humalog and Lantus for one month. CT of the abdomen and pelvis noting acute pancreatitis, of note lipase WNL- triglycerides 5408 - most likely Hypertriglyceridemia-induced acute pancreatitis. Plan to start gemfibrozil 600mg BID and dietary modification (fat and carb restricted diet). UA suspicious for UTI. IP treatment with insulin gtt per protocol/IVF for pancreatitis. Ceftriaxone for UTI. Patient will need follow up on discharge as she no longer wishes to return to her current PCP. Advise follow up with endocrinology. 05/08/24: Met with patient bedside. Endorses continued abdominal pain, nausea with an episode of vomiting last night. She is unable to tolerate a diet. Hypertriglyceridemia-induced acute pancreatitis - will continue insulin drip/D5 and keep patient NPO for now. Triglycerides improved to 1377<5480. Will start gemfibrozil with triglycerides are less than 500. Long discussion regarding the importance of follow up and medication compliance. Patient is agreeable to see endocrinology. Denies fever,cough, sob, cp,PARISH, dizziness, or diarrhea. 05/09/24: No overnight events noted. Patient states she is feeling much better today, mild tenderness to lower abdomen. No urinary symptoms. She would like to try CLD. Discussed labs- triglycerides/calcium/phos/potassium are improving. Plan for replenishment of CA/phos/potassium today. Continue Insulin drip/D5 with KCL. Continue ceftriaxone for UTI. Denies fever,cough, sob, cp, abdominal pain, PARISH, dizziness, N/V/D. 05/10/24: Met and examined patient. No overnight events noted. Patient's diet has been advanced, endorses improvement with abdominal pain and nausea. Plan to resume basal/bolus insulin. Discontinue drip. No urinary symptoms. Labs improving. Most likely discharge tomorrow. Will need follow up and medications called to pharmacy. - Review of Systems Constitutional: No Symptoms Eyes: No Symptoms Ears, Nose, & Throat: No Symptoms Respiratory: No Symptoms Cardiac: No Symptoms Abdominal/Gastrointestinal: Abdominal Pain, Nausea Genitourinary Symptoms: No Symptoms Musculoskeletal: No Symptoms Skin: No Symptoms Neurological: No Symptoms Psychological: No Symptoms Endocrine: No Symptoms Hematologic/Lymphatic: No Symptoms Immunological/Allergic: No Symptoms Objective Exam General Appearance: no apparent distress Neurologic Exam: alert, oriented x 3, cooperative Skin Exam: normal color Eye Exam: PERRL Ears, Nose, Throat Exam: normal ENT inspection Neck Exam: normal inspection Respiratory Exam: normal breath sounds, lungs clear Cardiovascular Exam: regular rate/rhythm, normal heart sounds Gastrointestinal/Abdomen Exam: soft, normal bowel sounds, tenderness (mid epigastric) Extremity Exam: normal inspection Back Exam: normal inspection Pelvic Exam: deferred Rectal Exam: deferred Objective Data Vital Signs: Vital Signs - 24 hr Temp Pulse Resp BP Pulse Ox 05/10/24 04:00 99.0 F 79 20 111/63 94 L 05/10/24 02:00 82 20 106/71 95 05/10/24 00:05 97.7 F 87 18 141/87 96 05/10/24 00:00 87 05/09/24 23:00 90 05/09/24 22:00 91 H 25 H 107/72 88 L 05/09/24 20:00 98.3 F 86 22 112/71 96 05/09/24 18:00 122/77 98 05/09/24 16:00 93 H 113/79 95 05/09/24 14:00 93 H 23 97/60 95 05/09/24 12:00 91 H 22 120/85 93 L 05/09/24 10:00 90 22 113/73 95 05/09/24 08:03 97.8 F 95 H 20 96 05/09/24 08:00 84 05/09/24 06:00 98.6 F 84 21 108/68 98 Pain Assessment - Last Documented Pain Intensity 3 Pain Scale Used 0-10 Pain Scale Intake and Output: Intake & Output 05/07/24 05/08/24 05/09/24 05/10/24 11:59 11:59 11:59 11:59 Intake Total 493 1585 2162 6144 Output Total 689 729 0826 2450 Balance 93 825 -697 3694 Weight 87 kg 88.9 kg 88.9 kg Lab Results: Lab Results-Last 24 Hours 05/07/24 05/08/2424 Range/Units 12:00 12:26 04:17 Sodium 138 (135-145) mmol/L Potassium 3.2 L (3.5-5.1) mmol/L Chloride 108 H (98-107) mmol/L Carbon Dioxide 22 (22-30) mmol/L Anion Gap 11.0 (5-15) MEQ/L BUN 3 L (7-17) mg/dL Creatinine 0.45 L (0.52-1.04) mg/dL Estimated GFR 131.8 ML/MIN Glucose 104 (74-106) mg/dL POC Glucometer (74 to 106) mg/dL Hemoglobin A1c 10.5 H (4.8-5.6) % Calcium 7.1 L (8.4-10.2) mg/dL Phosphorus 2.3 L (2.5-4.5) mg/dL Magnesium 2.3 (1.6-2.3) mg/dL Total Bilirubin 1.30 (0.2-1.3) mg/dL AST 40 H (14-36) U/L ALT 25 (0-35) U/L Alkaline Phosphatase 55 (38-126) U/L Serum Total Protein 6.3 (6.3-8.2) g/dL Albumin 3.2 L (3.5-5.0) g/dL Triglycerides 1079 H (30-150) mg/dL Cholesterol 320 H (50-200) mg/dL LDL Cholesterol < 46 (30-100) mg/dL HDL Cholesterol 28 L (40-60) mg/dL Heart Disease Risk Ratio 11.0 PTH Intact Whole Molec 150 H (15-65) pg/mL 05/09/24 05/09/24 05/09/24 Range/Units 05:51 06:57 08:04 Sodium (135-145) mmol/L Potassium (3.5-5.1) mmol/L Chloride (98-107) mmol/L Carbon Dioxide (22-30) mmol/L Anion Gap (5-15) MEQ/L BUN (7-17) mg/dL Creatinine (0.52-1.04) mg/dL Estimated GFR ML/MIN Glucose (74-106) mg/dL POC Glucometer 89 71 L 74 (74 to 106) mg/dL Hemoglobin A1c (4.8-5.6) % Calcium (8.4-10.2) mg/dL Phosphorus (2.5-4.5) mg/dL Magnesium (1.6-2.3) mg/dL Total Bilirubin (0.2-1.3) mg/dL AST (14-36) U/L ALT (0-35) U/L Alkaline Phosphatase (38-126) U/L Serum Total Protein (6.3-8.2) g/dL Albumin (3.5-5.0) g/dL Triglycerides (30-150) mg/dL Cholesterol (50-200) mg/dL LDL Cholesterol (30-100) mg/dL HDL Cholesterol (40-60) mg/dL Heart Disease Risk Ratio PTH Intact Whole Molec (15-65) pg/mL 05/09/24 05/09/24 05/09/24 Range/Units 08:47 10:59 11:59 Sodium (135-145) mmol/L Potassium (3.5-5.1) mmol/L Chloride (98-107) mmol/L Carbon Dioxide (22-30) mmol/L Anion Gap (5-15) MEQ/L BUN (7-17) mg/dL Creatinine (0.52-1.04) mg/dL Estimated GFR ML/MIN Glucose (74-106) mg/dL POC Glucometer 98 138 H 133 H (74 to 106) mg/dL Hemoglobin A1c (4.8-5.6) % Calcium (8.4-10.2) mg/dL Phosphorus (2.5-4.5) mg/dL Magnesium (1.6-2.3) mg/dL Total Bilirubin (0.2-1.3) mg/dL AST (14-36) U/L ALT (0-35) U/L Alkaline Phosphatase (38-126) U/L Serum Total Protein (6.3-8.2) g/dL Albumin (3.5-5.0) g/dL Triglycerides (30-150) mg/dL Cholesterol (50-200) mg/dL LDL Cholesterol (30-100) mg/dL HDL Cholesterol (40-60) mg/dL Heart Disease Risk Ratio PTH Intact Whole Molec (15-65) pg/mL 05/09/24 05/09/24 05/09/24 Range/Units 12:00 13:14 14:18 Sodium (135-145) mmol/L Potassium 3.4 L (3.5-5.1) mmol/L Chloride (98-107) mmol/L Carbon Dioxide (22-30) mmol/L Anion Gap (5-15) MEQ/L BUN (7-17) mg/dL Creatinine (0.52-1.04) mg/dL Estimated GFR ML/MIN Glucose (74-106) mg/dL POC Glucometer 137 H 132 H (74 to 106) mg/dL Hemoglobin A1c (4.8-5.6) % Calcium (8.4-10.2) mg/dL Phosphorus (2.5-4.5) mg/dL Magnesium (1.6-2.3) mg/dL Total Bilirubin (0.2-1.3) mg/dL AST (14-36) U/L ALT (0-35) U/L Alkaline Phosphatase (38-126) U/L Serum Total Protein (6.3-8.2) g/dL Albumin (3.5-5.0) g/dL Triglycerides (30-150) mg/dL Cholesterol (50-200) mg/dL LDL Cholesterol (30-100) mg/dL HDL Cholesterol (40-60) mg/dL Heart Disease Risk Ratio PTH Intact Whole Molec (15-65) pg/mL 05/09/24 05/09/24 05/09/24 Range/Units 15:15 16:18 16:30 Sodium 140 (135-145) mmol/L Potassium 3.7 (3.5-5.1) mmol/L Chloride 108 H (98-107) mmol/L Carbon Dioxide 26 (22-30) mmol/L Anion Gap 9.0 (5-15) MEQ/L BUN 2 L (7-17) mg/dL Creatinine 0.50 L (0.52-1.04) mg/dL Estimated GFR 128.5 ML/MIN Glucose 136 H (74-106) mg/dL POC Glucometer 120 H 134 H (74 to 106) mg/dL Hemoglobin A1c (4.8-5.6) % Calcium 7.4 L (8.4-10.2) mg/dL Phosphorus 2.0 L (2.5-4.5) mg/dL Magnesium (1.6-2.3) mg/dL Total Bilirubin 1.10 (0.2-1.3) mg/dL AST 34 (14-36) U/L ALT 22 (0-35) U/L Alkaline Phosphatase 57 (38-126) U/L Serum Total Protein 6.1 L (6.3-8.2) g/dL Albumin 3.1 L (3.5-5.0) g/dL Triglycerides 901 H (30-150) mg/dL Cholesterol 302 H (50-200) mg/dL LDL Cholesterol 55 (30-100) mg/dL HDL Cholesterol 23 L (40-60) mg/dL Heart Disease Risk Ratio 13.0 PTH Intact Whole Molec (15-65) pg/mL 05/09/24 05/09/24 05/09/24 Range/Units 18:19 19:15 20:17 Sodium (135-145) mmol/L Potassium (3.5-5.1) mmol/L Chloride (98-107) mmol/L Carbon Dioxide (22-30) mmol/L Anion Gap (5-15) MEQ/L BUN (7-17) mg/dL Creatinine (0.52-1.04) mg/dL Estimated GFR ML/MIN Glucose (74-106) mg/dL POC Glucometer 144 H 165 H 155 H (74 to 106) mg/dL Hemoglobin A1c (4.8-5.6) % Calcium (8.4-10.2) mg/dL Phosphorus (2.5-4.5) mg/dL Magnesium (1.6-2.3) mg/dL Total Bilirubin (0.2-1.3) mg/dL AST (14-36) U/L ALT (0-35) U/L Alkaline Phosphatase (38-126) U/L Serum Total Protein (6.3-8.2) g/dL Albumin (3.5-5.0) g/dL Triglycerides (30-150) mg/dL Cholesterol (50-200) mg/dL LDL Cholesterol (30-100) mg/dL HDL Cholesterol (40-60) mg/dL Heart Disease Risk Ratio PTH Intact Whole Molec (15-65) pg/mL 05/09/24 05/09/24 05/09/24 Range/Units 21:12 22:12 23:14 Sodium (135-145) mmol/L Potassium (3.5-5.1) mmol/L Chloride (98-107) mmol/L Carbon Dioxide (22-30) mmol/L Anion Gap (5-15) MEQ/L BUN (7-17) mg/dL Creatinine (0.52-1.04) mg/dL Estimated GFR ML/MIN Glucose (74-106) mg/dL POC Glucometer 151 H 158 H 149 H (74 to 106) mg/dL Hemoglobin A1c (4.8-5.6) % Calcium (8.4-10.2) mg/dL Phosphorus (2.5-4.5) mg/dL Magnesium (1.6-2.3) mg/dL Total Bilirubin (0.2-1.3) mg/dL AST (14-36) U/L ALT (0-35) U/L Alkaline Phosphatase (38-126) U/L Serum Total Protein (6.3-8.2) g/dL Albumin (3.5-5.0) g/dL Triglycerides (30-150) mg/dL Cholesterol (50-200) mg/dL LDL Cholesterol (30-100) mg/dL HDL Cholesterol (40-60) mg/dL Heart Disease Risk Ratio PTH Intact Whole Molec (15-65) pg/mL 05/10/24 05/10/24 05/10/24 Range/Units 00:14 01:17 02:16 Sodium (135-145) mmol/L Potassium (3.5-5.1) mmol/L Chloride (98-107) mmol/L Carbon Dioxide (22-30) mmol/L Anion Gap (5-15) MEQ/L BUN (7-17) mg/dL Creatinine (0.52-1.04) mg/dL Estimated GFR ML/MIN Glucose (74-106) mg/dL POC Glucometer 124 H 140 H 133 H (74 to 106) mg/dL Hemoglobin A1c (4.8-5.6) % Calcium (8.4-10.2) mg/dL Phosphorus (2.5-4.5) mg/dL Magnesium (1.6-2.3) mg/dL Total Bilirubin (0.2-1.3) mg/dL AST (14-36) U/L ALT (0-35) U/L Alkaline Phosphatase (38-126) U/L Serum Total Protein (6.3-8.2) g/dL Albumin (3.5-5.0) g/dL Triglycerides (30-150) mg/dL Cholesterol (50-200) mg/dL LDL Cholesterol (30-100) mg/dL HDL Cholesterol (40-60) mg/dL Heart Disease Risk Ratio PTH Intact Whole Molec (15-65) pg/mL 05/10/24 05/10/24 05/10/24 Range/Units 03:15 04:15 05:06 Sodium (135-145) mmol/L Potassium (3.5-5.1) mmol/L Chloride (98-107) mmol/L Carbon Dioxide (22-30) mmol/L Anion Gap (5-15) MEQ/L BUN (7-17) mg/dL Creatinine (0.52-1.04) mg/dL Estimated GFR ML/MIN Glucose (74-106) mg/dL POC Glucometer 132 H 140 H 106 (74 to 106) mg/dL Hemoglobin A1c (4.8-5.6) % Calcium (8.4-10.2) mg/dL Phosphorus (2.5-4.5) mg/dL Magnesium (1.6-2.3) mg/dL Total Bilirubin (0.2-1.3) mg/dL AST (14-36) U/L ALT (0-35) U/L Alkaline Phosphatase (38-126) U/L Serum Total Protein (6.3-8.2) g/dL Albumin (3.5-5.0) g/dL Triglycerides (30-150) mg/dL Cholesterol (50-200) mg/dL LDL Cholesterol (30-100) mg/dL HDL Cholesterol (40-60) mg/dL Heart Disease Risk Ratio PTH Intact Whole Molec (15-65) pg/mL Multi-Disciplinary Progress Notes: Multi-Disciplinary Progress Notes 05/09/24 14:03 Case Management Note by Yumiko Farmer/Lydia CARMONA AT [facility]- SHE WAS NOTIFIED PATIENT WANTS PCP CHANGED TO DR. GUEVARA. THIS WAS DONE AND WILL TAKE EFFECT 05/10/24 REF# FOR CALL IS [id number] Initialized on 05/09/24 14:03 - END OF NOTE 05/09/24 12:04 Case Management [facility]umiko Farmer[facility] PATIENT HAS ACTIVE ORDER FOR TEST STRIPS WITH REFILLS- THEY WILL GET THAT READY. NEW ORDER SENT IN FOR LANCETS. PATIENT REPORTS SHE HAS A METER Initialized on 05/09/24 12:04 - END OF NOTE 05/09/24 11:16 Case Management Note by Yumiko Farmer Addendum entered by Yumiko Farmer 05/09/24 11:56: PATIENT AGREEABLE TO [facility]. REFERRAL FAXED TO [facility] THEY ARE ONLY COMPANY THAT SERVICES MEDICAID IN THIS AREA Original Note: S/W PATIENT- SHE AGAIN DENIES ANY NEW NEEDS AT TIME OF DC. SHE PLANS TO DC HOME TO HER PLF. SHE WAS AGAIN ENCOURAGED TO CALL HER INSURANCE TO GET HER PCP CHANGED IN THEIR SYSTM- SHE VERIFIED UNDERSTANDING Initialized on 05/09/24 11:16 - END OF NOTE Assessment/Plan (1) DKA (diabetic ketoacidosis) Current Visit: Yes Status: Acute Qualifiers: Diabetes mellitus type: type 2 Assessment & Plan: - DKA resolved - Monitor electrolytes - IVF - Insulin gtt -continue due to hypertriglyceridemia induced pancreatitis - w/ D5 infusion - Q1 hr accuchecks - A1C - lipid panel -Trig - 5408, cholesterol 747, LDL 141, HDL 25 -replenish phos/mag/calc 05/09: -Replenish phos/idania/potas 05/10: -replenish phos Code(s): E11.10 - TYPE 2 DIABETES MELLITUS WITH KETOACIDOSIS WITHOUT COMA (2) Acute pancreatitis Current Visit: No Status: Acute Assessment & Plan: -as noted on CT -Hypertriglyceridemia-induced -on insulin gtt/D5 -start gemfibrozil 600mg BID when triglycerides <500 -check triglycerides q12 hours -Advised good glycemic control/dietary modifications (fat/carb restricted) - wi ll provide written education on discharge - pt has poor OP follow up- long discussion on importance of compliance - NPO - Dilaudid 05/09: -Triglycerides q12H improving 1079<1163<5408, once less than 500 can discontinue insulin drip -advance diet as tolerated -continue insulin drip at 4 units/hr/fluids d5 with kcl at 150 05/10: -dc insulin drip and resume basal/bolus insulin -Tolerating regular diet -recheck labs this evening, trigly improving will start gemfibrozil when trig <500 Code(s): K85.90 - ACUTE PANCREATITIS WITHOUT NECROSIS OR INFECTION, UNSP (3) Abdominal pain Current Visit: Yes Status: Acute Assessment & Plan: - 2:2 Pancreatitis - Porsha Lynch for nausea - Dilaudid for pain - CT abd. pelvis: 05/06/24 Pelvis: IMPRESSION: Enlarged and edematous head and uncinate process of pancreas with significant surrounding fat stranding and mild fluid collection, representing acute pancreatitis. 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: Diabetes mellitus alf insulin use: with terminologist use Diabetes mellitus complication status: with ketoacidosis Diabetes mellitus complication detail: without coma Qualified Code(s): E11.10 - Type 2 diabetes mellitus with ketoacidosis without coma; 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 Assessment & Plan: - A1C pending - NPO as in DKA- on DKA protocol - Will need refills of insulin at d/c since she is out -Advised follow up with endocrinology - multiple hospitalizations due to poor compliance/follow up 05/09: -DKA has resolved - insulin drip continued for Hypertiglyceridemia induced pancreatitis - drip changed to 4u/hr/ fluids now d5 w KCL at 150 05/10: -d/c drip/fluids -resume basal/bolus insulin regimen (7) Hypocalcemia Current Visit: Yes Status: Acute Assessment & Plan: -In the setting of acute pancreatitis -Lab reviewed, level at 5.6 - 1G of calcium gluconate -pth/vit d ordered 05/09: -vitamin d level low, ordered 25596s weekly x 8 weeks -corrected idania at 7.7, will replenish -continue tele - monitor closely 05/10: -resolved Code(s): E83.51 - HYPOCALCEMIA (8) Hyperlipidemia associated with type 2 diabetes mellitus Current Visit: No Status: Acute Assessment & Plan: -gemfibrozil BID for mixed dyslipidemia once triglycerides <500 VTE: Lovenox PPI: Protonix Next of KIN: Dinesh Ley [phone] D/C plan: 1-2 days Code status: Full Code(s): E11.10 - TYPE 2 DIABETES MELLITUS WITH KETOACIDOSIS WITHOUT COMA (2) Acute pancreatitis Current Visit: No Status: Acute Code(s): K85.90 - ACUTE PANCREATITIS WITHOUT NECROSIS OR INFECTION, UNSP (3) Abdominal pain Current Visit: Yes Status: Acute Code(s): R10.9 - UNSPECIFIED ABDOMINAL PAIN (4) Urinary tract infection Current Visit: Yes Status: Acute Code(s): N39.0 - URINARY TRACT INFECTION, SITE NOT SPECIFIED (5) Obesity (BMI 30.0-34.9) Current Visit: Yes Status: Chronic Code(s): E66.9 - OBESITY, UNSPECIFIED (6) Type II diabetes mellitus Current Visit: Yes Status: Chronic Qualifiers: Diabetes mellitus alf insulin use: with alf use Diabetes mellitus complication status: with ketoacidosis Diabetes mellitus complication detail: without coma Qualified Code(s): E11.10 - Type 2 diabetes mellitus with ketoacidosis without coma; 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
[2024-05-10 05:59] LABS: ALBUMIN 3.1 g/dL (3.5-5.0); ANION GAP 9.1 MEQ/L (5-15); BILIRUBIN,TOTAL 1.2 mg/dL (0.2-1.3); Creatinine 1 0.53 mg/dL (0.52-1.04); EST GLOMERULAR FILTRATION RATE 126.7 ML/MIN; MAGNESIUM 2.1 mg/dL (1.6-2.3); PHOSPHOROUS 2.1 mg/dL (2.5-4.5); Potassium 3.5 mmol/L (3.5-5.1); Total Protein 6.2 g/dL (6.3-8.2)
[2024-05-10] MEDS ORDERED: HUMALOG SQ PRN (08:58)
[2024-05-10] MEDS ORDERED: MYXREDLIN 100 UNIT/100 ML BAG 100 UNIT/100 ML PLAST..BAG IV PRN (09:16)
[2024-05-10] MEDS ORDERED: Lantus Insulin SQ SCH (10:00)
[2024-05-10 16:03] LABS: ALBUMIN 3.1 g/dL (3.5-5.0); ANION GAP 11.4 MEQ/L (5-15); BILIRUBIN,TOTAL 1.3 mg/dL (0.2-1.3); Calcium 8.1 mg/dL (8.4-10.2); Creatinine 1 0.46 mg/dL (0.52-1.04); EST GLOMERULAR FILTRATION RATE 131.1 ML/MIN; Potassium 3.6 mmol/L (3.5-5.1); Total Protein 6.1 g/dL (6.3-8.2)
[2024-05-10] MEDS: HUMALOG SQ PRN (17:19)
[2024-05-11 05:29] LABS: Hematocrit 33.7 % (34.1-44.9); Mean Cell Volume 87.5 fL (79.4-94.8); Mean Corpuscular Hemoglobin 28.6 pg (25.6-32.2); Mean Corpuscular Hgb Concent. 32.6 g/dL (32.2-35.5); Mean Platelet Volume 10.4 fL (9.4-12.3); Platelet Count 236 x10^3/uL (182-369); Red Blood Count 3.85 x10^6/uL (3.93-5.22); Red Cell Distribution Width 13.8 % (11.7-14.4); White Blood Count 10.6 x10^3/uL (3.98-10.04)
[2024-05-11 05:58] LABS: ALBUMIN 3.6 g/dL (3.5-5.0); ANION GAP 12.5 MEQ/L (5-15); BILIRUBIN,TOTAL 1.6 mg/dL (0.2-1.3); Creatinine 1 0.49 mg/dL (0.52-1.04); EST GLOMERULAR FILTRATION RATE 129.1 ML/MIN; MAGNESIUM 2.1 mg/dL (1.6-2.3); PHOSPHOROUS 4.2 mg/dL (2.5-4.5); Potassium 3.6 mmol/L (3.5-5.1); Total Protein 7.2 g/dL (6.3-8.2)
[2024-05-11 08:08] VITALS: TEMP 96.7
[2024-05-11] MEDS: Lantus Insulin SQ SCH (08:10)
[2024-05-11 08:39] LABS: Lymphocytes 23 % (24-44); Monocyte 9 % (0.0-12.0); Neutrophils 68 % (1.56-6.13); Total Cells Counted 100
[2024-05-11 08:40] LABS: Platelet Estimate NORMAL (NORMAL)
--- NOTE | 2024-05-11 12:41 | PCM.DS ---
Discharge Summary Date of Admission: 05/06/24 22:58 Date of Discharge: 05/11/24 Admitting Physician: JYOTI PADGETT MD Primary Care Provider: TED ANDRADE DO Allergies Allergies No Known Drug Allergies Allergy (Verified 05/07/24 00:14) Hospital Summary - Hospital Course Hospital Course: Subjective Assessment: is a 33 year old female with PMHX of Type II DM and chronic obesity admitted 05/06/24 for DKA after experiencing RUQ pain with nausea. Patient has had multiple admission for DKA due to noncompliance with medications and follow up with PCP. On current admission patient states she has been out of her Humalog and Lantus for one month. CT of the abdomen and pelvis noting acute pancreatitis, of note lipase WNL- triglycerides 5408 - most likely Hypertriglyceridemia-induced acute pancreatitis. Plan to start gemfibrozil 600mg BID and dietary modification (fat and carb restricted diet). UTI with Ecoli, treated IP with ceftriaxone - no need for oral abx. IP treatment with insulin gtt per protocol/IVF for pancreatitis. Discussed importance of compliance with diabetes medications and follow up. We have made her an appt with Dr. Echavarria (endocrinology) as well as set her up with a new PCP. Patient to Advise follow up with endocrinology. Insulin and lancets will be sent to pharmacy. Patient states she has glucometer and strips. Will provide written instructions on basic diabetes care and insulin regimen. Discharge Note New Diagnosis:DKA/pancreatitis New Medications: Gemfibozil Follow Up: PCP/endocrinology Latest Assessment & Plan (1) DKA (diabetic ketoacidosis) Current Visit: Yes Status: Acute Qualifiers: Diabetes mellitus type: type 2 Assessment & Plan: - DKA resolved - Monitor electrolytes - IVF - Insulin gtt -continue due to hypertriglyceridemia induced pancreatitis - w/ D5 infusion - Q1 hr accuchecks - A1C - lipid panel -Trig - 5408, cholesterol 747, LDL 141, HDL 25 -replenish phos/mag/calc 05/09: -Replenish phos/idania/potas 05/10: -replenish phos Code(s): E11.10 - TYPE 2 DIABETES MELLITUS WITH KETOACIDOSIS WITHOUT COMA (2) Acute pancreatitis Current Visit: No Status: Acute Assessment & Plan: -as noted on CT -Hypertriglyceridemia-induced -on insulin gtt/D5 -start gemfibrozil 600mg BID when triglycerides <500 -check triglycerides q12 hours -Advised good glycemic control/dietary modifications (fat/carb restricted) - will provide written education on discharge - pt has poor OP follow up- long discussion on importance of compliance - NPO - Dilaudid 05/09: -Triglycerides q12H improving 1079<1163<5408, once less than 500 can discontinue insulin drip -advance diet as tolerated -continue insulin drip at 4 units/hr/fluids d5 with kcl at 150 05/10: -dc insulin drip and resume basal/bolus insulin -Tolerating regular diet -recheck labs this evening, trigly improving will start gemfibrozil when trig <500 Code(s): K85.90 - ACUTE PANCREATITIS WITHOUT NECROSIS OR INFECTION, UNSP (3) Abdominal pain Current Visit: Yes Status: Acute Assessment & Plan: - 2:2 Pancreatitis - Zofran, Compazine for nausea - Dilaudid for pain - CT abd. pelvis: 05/06/24 Pelvis: IMPRESSION: Enlarged and edematous head and uncinate process of pancreas with significant surrounding fat stranding and mild fluid collection, representing acute pancreatitis. 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: Diabetes mellitus group home insulin use: with group home use Diabetes mellitus complication status: with ketoacidosis Diabetes mellitus complication detail: without coma Qualified Code(s): E11.10 - Type 2 diabetes mellitus with ketoacidosis without coma; Z79.4 - half-way (current) use of insulin Assessment & Plan: - A1C pending - NPO as in DKA- on DKA protocol - Will need refills of insulin at d/c since she is out -Advised follow up with endocrinology - multiple hospitalizations due to poor compliance/follow up 05/09: -DKA has resolved - insulin drip continued for Hypertiglyceridemia induced pancreatitis - drip changed to 4u/hr/ fluids now d5 w KCL at 150 05/10: -d/c drip/fluids -resume basal/bolus insulin regimen (7) Hypocalcemia Current Visit: Yes Status: Acute Assessment & Plan: -In the setting of acute pancreatitis -Lab reviewed, level at 5.6 - 1G of calcium gluconate -pth/vit d ordered 05/09: -vitamin d level low, ordered [id number] weekly x 8 weeks -corrected idania at 7.7, will replenish -continue tele - monitor closely 05/10: -resolved Code(s): E83.51 - HYPOCALCEMIA (8) Hyperlipidemia associated with type 2 diabetes mellitus Current Visit: No Status: Acute Assessment & Plan: -gemfibrozil BID for mixed dyslipidemia once triglycerides <500 I spent 35 minutes [id number] with the patient on the day of discharge performing discharge exam, discussing hospital stay and discharge instructions with patient and caregivers, preparation of discharge records, prescriptions & referral forms and addressing any questions/concerns the patient had as documented above. - Vitals & Intake/Output Vital Signs: Vital Signs Temperature 96.7 F 05/11/24 08:00 Pulse Rate 83 05/11/24 08:00 Respiratory Rate 22 05/11/24 08:00 Blood Pressure 136/85 05/11/24 08:00 O2 Sat by Pulse Oximetry 94 L 05/11/24 08:00 Intake & Output: Intake & Output 05/09/24 05/10/24 05/11/24 05/12/24 11:59 11:59 11:59 11:59 Intake Total 2162 6144 Output Total 2900 3350 3350 Balance -738 7934 -3350 Weight 88.9 kg - Lab Result Diagrams: 05/11/24 05:20 05/11/24 05:20 Lab Results-Last 24 Hrs: Lab Results-Last 24 Hours 05/10/24 05/10/24 05/10/24 Range/Units 13:04 15:24 16:06 WBC (3.98-10.04) x10^3/uL RBC (3.93-5.22) x10^6/uL Hgb (11.2-15.7) g/dL Hct (34.1-44.9) % MCV (79.4-94.8) fL MCH (25.6-32.2) pg MCHC (32.2-35.5) g/dL RDW (11.7-14.4) % Plt Count (182-369) x10^3/uL MPV (9.4-12.3) fL Segmented Neutrophils (1.56-6.13) % Lymphocytes (Manual) (24-44) % Monocytes (Manual) (0.0-12.0) % Platelet Estimate (NORMAL) RBC Morphology Sodium 137 (135-145) mmol/L Potassium 3.6 (3.5-5.1) mmol/L Chloride 107 (98-107) mmol/L Carbon Dioxide 22 (22-30) mmol/L Anion Gap 11.4 (5-15) MEQ/L BUN 3 L (7-17) mg/dL Creatinine 0.46 L (0.52-1.04) mg/dL Estimated GFR 131.1 ML/MIN Glucose 187 H (74-106) mg/dL POC Glucometer 162 H 179 H (74 to 106) mg/dL Calcium 8.1 L (8.4-10.2) mg/dL Phosphorus (2.5-4.5) mg/dL Magnesium (1.6-2.3) mg/dL Total Bilirubin 1.30 (0.2-1.3) mg/dL AST 46 H (14-36) U/L ALT 29 (0-35) U/L Alkaline Phosphatase 65 (38-126) U/L Serum Total Protein 6.1 L (6.3-8.2) g/dL Albumin 3.1 L (3.5-5.0) g/dL Triglycerides 691 H (30-150) mg/dL Cholesterol 287 H (50-200) mg/dL LDL Cholesterol 89 (30-100) mg/dL HDL Cholesterol 21 L (40-60) mg/dL Heart Disease Risk Ratio 14.0 05/10/24 05/11/24 05/11/24 Range/Units 20:04 00:19 00:19 WBC (3.98-10.04) x10^3/uL RBC (3.93-5.22) x10^6/uL Hgb (11.2-15.7) g/dL Hct (34.1-44.9) % MCV (79.4-94.8) fL MCH (25.6-32.2) pg MCHC (32.2-35.5) g/dL RDW (11.7-14.4) % Plt Count (182-369) x10^3/uL MPV (9.4-12.3) fL Segmented Neutrophils (1.56-6.13) % Lymphocytes (Manual) (24-44) % Monocytes (Manual) (0.0-12.0) % Platelet Estimate (NORMAL) RBC Morphology Sodium (135-145) mmol/L Potassium (3.5-5.1) mmol/L Chloride (98-107) mmol/L Carbon Dioxide (22-30) mmol/L Anion Gap (5-15) MEQ/L BUN (7-17) mg/dL Creatinine (0.52-1.04) mg/dL Estimated GFR ML/MIN Glucose (74-106) mg/dL POC Glucometer 198 H 163 H 163 H (74 to 106) mg/dL Calcium (8.4-10.2) mg/dL Phosphorus (2.5-4.5) mg/dL Magnesium (1.6-2.3) mg/dL Total Bilirubin (0.2-1.3) mg/dL AST (14-36) U/L ALT (0-35) U/L Alkaline Phosphatase (38-126) U/L Serum Total Protein (6.3-8.2) g/dL Albumin (3.5-5.0) g/dL Triglycerides (30-150) mg/dL Cholesterol (50-200) mg/dL LDL Cholesterol (30-100) mg/dL HDL Cholesterol (40-60) mg/dL Heart Disease Risk Ratio 05/11/24 05/11/24 05/11/24 Range/Units 05:02 05:20 05:20 WBC 10.6 H (3.98-10.04) x10^3/uL RBC 3.85 L (3.93-5.22) x10^6/uL Hgb 11.0 L (11.2-15.7) g/dL Hct 33.7 L (34.1-44.9) % MCV 87.5 (79.4-94.8) fL MCH 28.6 (25.6-32.2) pg MCHC 32.6 (32.2-35.5) g/dL RDW 13.8 (11.7-14.4) % Plt Count 236 (182-369) x10^3/uL MPV 10.4 (9.4-12.3) fL Segmented Neutrophils 68 H (1.56-6.13) % Lymphocytes (Manual) 23 L (24-44) % Monocytes (Manual) 9 (0.0-12.0) % Platelet Estimate NORMAL (NORMAL) RBC Morphology NORMAL Sodium 137 (135-145) mmol/L Potassium 3.6 (3.5-5.1) mmol/L Chloride 102 (98-107) mmol/L Carbon Dioxide 27 (22-30) mmol/L Anion Gap 12.5 (5-15) MEQ/L BUN 5 L (7-17) mg/dL Creatinine 0.49 L (0.52-1.04) mg/dL Estimated GFR 129.1 ML/MIN Glucose 167 H (74-106) mg/dL POC Glucometer 151 H (74 to 106) mg/dL Calcium 9.0 (8.4-10.2) mg/dL Phosphorus 4.2 (2.5-4.5) mg/dL Magnesium 2.1 (1.6-2.3) mg/dL Total Bilirubin 1.60 H (0.2-1.3) mg/dL AST 36 (14-36) U/L ALT 34 (0-35) U/L Alkaline Phosphatase 75 (38-126) U/L Serum Total Protein 7.2 (6.3-8.2) g/dL Albumin 3.6 (3.5-5.0) g/dL Triglycerides 702 H (30-150) mg/dL Cholesterol 315 H (50-200) mg/dL LDL Cholesterol 114 H (30-100) mg/dL HDL Cholesterol 22 L (40-60) mg/dL Heart Disease Risk Ratio 14.0 05/11/24 05/11/24 Range/Units 07:52 12:25 WBC (3.98-10.04) x10^3/uL RBC (3.93-5.22) x10^6/uL Hgb (11.2-15.7) g/dL Hct (34.1-44.9) % MCV (79.4-94.8) fL MCH (25.6-32.2) pg MCHC (32.2-35.5) g/dL RDW (11.7-14.4) % Plt Count (182-369) x10^3/uL MPV (9.4-12.3) fL Segmented Neutrophils (1.56-6.13) % Lymphocytes (Manual) (24-44) % Monocytes (Manual) (0.0-12.0) % Platelet Estimate (NORMAL) RBC Morphology Sodium (135-145) mmol/L Potassium (3.5-5.1) mmol/L Chloride (98-107) mmol/L Carbon Dioxide (22-30) mmol/L Anion Gap (5-15) MEQ/L BUN (7-17) mg/dL Creatinine (0.52-1.04) mg/dL Estimated GFR ML/MIN Glucose (74-106) mg/dL POC Glucometer 169 H 202 H (74 to 106) mg/dL Calcium (8.4-10.2) mg/dL Phosphorus (2.5-4.5) mg/dL Magnesium (1.6-2.3) mg/dL Total Bilirubin (0.2-1.3) mg/dL AST (14-36) U/L ALT (0-35) U/L Alkaline Phosphatase (38-126) U/L Serum Total Protein (6.3-8.2) g/dL Albumin (3.5-5.0) g/dL Triglycerides (30-150) mg/dL Cholesterol (50-200) mg/dL LDL Cholesterol (30-100) mg/dL HDL Cholesterol (40-60) mg/dL Heart Disease Risk Ratio Micro Results-Entire Visit: Microbiology 05/06/24 19:46 Urine Culture - Final Clean Catch Midstream Escherichia Coli Accuchecks Date 05/11/24 Date 05/11/24 Date 05/11/24 Date 05/11/24 Date 05/10/24 Date 05/10/24 Time 12:25 Time 08:07 Time 05:06 Time 00:21 Time 20:00 Time 16:18 - Procedures and Test Procedures and Tests throughout Hospitalization: Therapy Orders & Screens 05/07/24 05:00 EKG ROUTINE Comment: Diagnosis: DKA, UTI, Acute pancreatitis Discharge Exam General Appearance: no apparent distress Neurologic Exam: alert, oriented x 3, cooperative Eye Exam: PERRL Ears, Nose, Throat Exam: normal ENT inspection Neck Exam: normal inspection Respiratory Exam: normal breath sounds, lungs clear Cardiovascular Exam: regular rate/rhythm, normal heart sounds Gastrointestinal/Abdomen Exam: soft, normal bowel sounds Pelvic Exam: deferred Rectal Exam: deferred Back Exam: normal inspection Extremity Exam: normal inspection Final Diagnosis/Problem List - Final Discharge Diagnosis/Problem (1) DKA (diabetic ketoacidosis) Current Visit: Yes Status: Resolved Code(s): E11.10 - TYPE 2 DIABETES MELLITUS WITH KETOACIDOSIS WITHOUT COMA (2) Acute pancreatitis Current Visit: No Status: Acute Code(s): K85.90 - ACUTE PANCREATITIS WITHOUT NECROSIS OR INFECTION, UNSP (3) Abdominal pain Current Visit: Yes Status: Resolved Code(s): R10.9 - UNSPECIFIED ABDOMINAL PAIN (4) Urinary tract infection Current Visit: Yes Status: Resolved Code(s): N39.0 - URINARY TRACT INFECTION, SITE NOT SPECIFIED (5) Obesity (BMI 30.0-34.9) Current Visit: Yes Status: Chronic Code(s): E66.9 - OBESITY, UNSPECIFIED (6) Type II diabetes mellitus Current Visit: Yes Status: Chronic (7) Hypocalcemia Current Visit: Yes Status: Resolved Code(s): E83.51 - HYPOCALCEMIA (8) Hyperlipidemia associated with type 2 diabetes mellitus Current Visit: No Status: Chronic Code(s): E11.69 - TYPE 2 DIABETES MELLITUS WITH OTHER SPECIFIED COMPLICATION; E78.5 - HYPERLIPIDEMIA, UNSPECIFIED - Discharge Disposition: Home, Self-Care Condition: Stable Prescriptions: New Lancets 1 each MC TID #100 misc Insulin Glargine [Lantus Insulin] 50 unit SQ AMINSULIN 30 Days #10 ml Gemfibrozil [Lopid] 600 mg PO BID 30 Days #60 tablet Ergocalciferol (Vitamin D2) [Vitamin D2] 50,000 unit PO Q7D 60 Days #7 cap Continue Insulin Lispro [Humalog Kwikpen U-100] 1 - 10 unit SQ TIDPRN #1 Discontinued Insulin Glargine [Lantus Insulin] 50 unit SQ HS 30 Days #1 unit Instructions: Diabetic ketoacidosis - Discharge instructions Additional Instructions: [facility] HAS BEEN SET UP FOR YOU. THEY WILL CALL YOU TO ARRANGE A TIME TO COME SEE YOU. IF YOU NEED ANYTHING BEFORE THEIR FIRST VISIT YOU CAN CALL THEM AT [phone]. YOU HAVE NITRATE OPERATOR ASSIGNED TO YOU BY KAREN- HER NAME IS JAKOB. IF YOU NEED ANY ASSISTANCE AFTER DC WITH MEDS, FOLLOW UP, TRANSPORTATION, OR ANY OTHER VARIOUS NEEDS, YOU CAN CALL HER AT [phone]. Follow up with: KOLE ECHAVARRIA [NON-STAFF PHY W/O PRIVILEGES] - 05/16/24 10:15 am (Bring Ins Card, I.D., arrive 10 min early for paperwork) JOYCE GARCIA NP [NON-STAFF PHY W/O PRIVILEGES] - 05/22/24 2:15 pm
[2024-05-11 12:56] VITALS: BP 123/79; PULSE 93; RESP 18; O2SAT 97
== END 2024-05-11 15:35 | disposition home health service (06) | DRG 637 ==
LOC: ED 18:32 → ICU 22:58 → OBSVTOIN 22:58
PROVIDERS: ADMIT Student in an Organized Health Care Education/Training Program; ATTEND Student in an Organized Health Care Education/Training Program
DX: E11.10 Type 2 diabetes mellitus with ketoacidosis without coma (principal); K85.90 Acute pancreatitis without necrosis or infection, unspecified; N39.0 Urinary tract infection, site not specified; R10.9 Unspecified abdominal pain; B96.20 Unspecified Escherichia coli [E. coli] as the cause of diseases classified elsewhere; E11.69 Type 2 diabetes mellitus with other specified complication; E66.9 Obesity, unspecified; E83.51 Hypocalcemia; E78.5 Hyperlipidemia, unspecified; Z79.899 Other long term (current) drug therapy
CPT/HCPCS: 36000; 36415; 74177; 80048; 80053; 80061; 81001; 81025; 82306; 82330; 82805; 82947; 83036; 83605; 83690; 83721; 83735; 83970; 84100; 84132; 85025; 85027; 87077; 87086; 87186; 87491; 87591; 93005; 96365; 96366; 96367; 96374; 96376; 99285; J0612; J0696; J1170; J1650; J1817; J2405; J3475; Q3014; A9270-GY

== ENCOUNTER 2024-11-22 01:58 | Emergency (ER) | payer OTHER ==
[2024-11-22 02:18] VITALS: BP 162/92; PULSE 96; RESP 18; TEMP 97.2; O2SAT 95
--- NOTE | 2024-11-22 02:23 | ERPHSYRPT ---
- History of Present Illness Time Seen by Provider: 11/22/24 02:15 Source: patient Exam Limitations: no limitations Patient Subjective Stated Complaint: c/o cat scratches Triage Nursing Assessment: patient brought self to ED with c/o multiple cat s cratches on bilat. lower extremeties and medial back. patient doesn't have a fever and denies pain. patient stated she wanted to be seen because she heard of "cat scratch fever." patient has one 1.5cm x 1.5 cm reddened abrasion near one of the scratches on her left lower leg that concerned her. scratches are 3 days old, no bleeding present, scratches well approximated. vitals wnl, skin w/n/d, gait steady, patient doesn't appear to be in any distress at this time. Physician History: This is a 33-year-old white female patient who is a diabetic and presents to the emergency department by private vehicle and is the patient Dr. Andrade for evaluation of cat scratches to bilateral lower extremities. She has not had a fever she is here to be placed on some antibiotics. Patient also has a history of hyperlipidemia. Timing/Duration: day(s) (3) Quality: painful Severity: mild Location: extremities (Bilateral lower extremities from the caudally) Associated Symptoms: denies symptoms Allergies/Adverse Reactions: No Known Drug Allergies Allergy (Verified 11/22/24 02:19) Hx Tetanus, Diphtheria Vaccination/Date Given: No (unknown) Hx Influenza Vaccination/Date Given: No Hx Pneumococcal Vaccination/Date Given: No Travel Risk - International Travel Have you traveled outside of the country in past 3 weeks: No - Emerging Infectious Disease Are you exhibiting symptoms associated with any current EIDs: No Symptoms: Abdominal Pain - Review of Systems Constitutional: No Symptoms Eyes: No Symptoms Ears, Nose, & Throat: No Symptoms Respiratory: No Symptoms Cardiac: No Symptoms Abdominal/Gastrointestinal: No Symptoms Genitourinary Symptoms: No Symptoms Skin: Other (Multiple abrasions to the patient's bilateral lower extremities below the knee) Neurological: No Symptoms Psychological: No Symptoms Endocrine: No Symptoms Hematologic/Lymphatic: No Symptoms Immunological/Allergic: No Symptoms All Other Systems: Reviewed and Negative - Past Medical History Pertinent Past Medical History: Yes Neurological History: No Pertinent History ENT History: No Pertinent History Cardiac History: No Pertinent History Respiratory History: No Pertinent History Endocrine Medical History: Diabetes Type II Musculoskeletal History: No Pertinent History GI Medical History: No Pertinent History History: No Pertinent History Psycho-Social History: No Pertinent History Female Reproductive Disorders: No Pertinent History Other Medical History: blood transfusion due to heavy periods - Past Surgical History Past Surgical History: No Neuro Surgical History: No Pertinent History Cardiac: No Pertinent History Respiratory: No Pertinent History Gastrointestinal: No Pertinent History Genitourinary: No Pertinent History Musculoskeletal: No Pertinent History Female Surgical History: No Pertinent History - Female History Hx Last Menstrual Period: a few years ago Hx Now: No - Social History Smoking Status: Never smoker Exposure to second hand smoke: No Drug Use: none Patient Lives Alone: No - Social Determinants of Health Will the patient participate in the screening: Yes Do you worry about a steady place to live?: No Do you have any problems with any of the following?: No known problems In the past 12 months,have you had to go without utilities?: No Transportation Issues: No Has anyone in your support network made you feel unsafe?: No Have you or anyone in your house had to go without enough: No - Nursing Vital Signs Nursing Vital Signs: Initial Vital Signs Temperature 97.2 F 11/22/24 02:02 Pulse Rate 96 H 11/22/24 02:02 Respiratory Rate 18 11/22/24 02:02 Blood Pressure 162/92 11/22/24 02:02 O2 Sat by Pulse Oximetry 95 11/22/24 02:02 Pain Scale Pain Intensity 0 - Physical Exam General Appearance: no apparent distress, alert Eye Exam: PERRL/EOMI, eyes nml inspection Ears, Nose, Throat Exam: normal ENT inspection, moist mucous membranes Neck Exam: normal inspection, non-tender, supple, full range of motion Respiratory Exam: airway intact, No chest tenderness, No respiratory distress Gastrointestinal/Abdomen Exam: No tenderness Pelvic Exam: not done Rectal Exam: not done Back Exam: normal inspection Extremity Exam: normal range of motion, pelvis stable Skin Exam: other (Bilateral lower extremity cat scratches with a few sites in her left lower leg that shows localized cellulitis. There is no abscess p resent.) Lymphatic Exam: No adenopathy SpO2 Interpretation: normal SpO2: 95 O2 Delivery: Room Air - Course Nursing assessment & vital signs reviewed: Yes - Progress Progress: unchanged Progress Note: 11/22/24 02:29 My medical decision making and the assignment of low complexity to this patient's medical issue today is based on review of the patient's past medical history, review of the patient's medication list, review of the patient's drug allergy list, history present illness and physical findings on examination. The workup and the patient does not require any laboratory radiographic studies. Differential diagnosis includes but is not limited to bilateral lower extremity skin abrasions, cellulitis A few of the cat scratch sites in her left lower extremity show localized brett lulitis. We will start her on oral antibiotics. Counseled pt/family regarding: diagnosis, need for follow-up Medical Desision Making - Independent Historian Additional History obtained from: Family - Diagnostic Testing Diagnostic test were ordered, analyzed, and reviewed by me: No - Risk of complications The pt has a mod risk of morbidity or mortality based on: Need for prescription drug management - Departure Departure Disposition: Home Clinical Impression: Cat scratch of lower leg, Cellulitis Condition: Stable Critical Care Time: No Referrals: TED ANDRADE DO [Primary Care Provider] - Follow up/PCP as directed Instructions: Wound Care (DC), Deciding Where to Go for Care Additional Instructions: Keep the cat scratch site to clean daily with soap and water. May apply a thin layer of antibiotic ointment to the sites as well. Continue medication as prescribed. Take the remainder of your antibiotics as prescribed. Prescriptions: Azithromycin 250 mg [Zithromax 250 MG TABLET] 250 mg PO ZPACK #4 tablet
[2024-11-22] MEDS ORDERED: Zithromax 250 MG TABLET ONE (02:28)
[2024-11-22] MEDS: Zithromax 250 MG TABLET PO ONE (02:29)
== END 2024-11-22 02:44 | disposition home or self-care (01) ==
LOC: ED 01:58
DX: S80.812A Abrasion, left lower leg, initial encounter (principal); S80.811A Abrasion, right lower leg, initial encounter; L03.116 Cellulitis of left lower limb; W55.03XA Scratched by cat, initial encounter; E11.9 Type 2 diabetes mellitus without complications; Z79.899 Other long term (current) drug therapy
CPT/HCPCS: 99281; 99283; A9270-GY